=== PATIENT | female | born 1955 | race Caucasian/White ===

== ENCOUNTER 2017-03-11 17:51 | Emergency (ER) | payer OTHER ==
--- NOTE | 2017-03-11 18:36 | EDPHY ---
H & P Stated Complaint: Post op bleeding today in left knee Time Seen by Provider: 03/11/17 18:07 HPI/ROS: CHIEF COMPLAINT: Wound dehiscence History by patient HISTORY OF PRESENT ILLNESS: 62-year-old woman 2 weeks status post revision of left knee replacement complicated by new onset atrial fibrillation and significant peripheral edema who has been home from the hospital for 5 days presents complaining of wound dehiscence and bleeding from the site of the surgical wound over her left knee. Patient is on Eliquis to prevent DVT. She denies any fever. She has long-standing neuropathy and has not had much sensation in her leg and did not notice any pain in the area. She did not think it was more red than usual and there has been no drainage until it dehisced and started bleeding. She denies any purulence. She says that her lower extremity edema is improved since her discharge from the hospital. Patient notes that her blood pressure has been running low since she was in the hospital and they changed her medications around because of the atrial fibrillation. They took her off an Brayan inhibitor and hydrochlorothiazide and she has been on amiodarone and Lasix 40 mg twice a day mom states that even the hospital her blood pressure was running in the 90s on the day of discharge. She denies any chest pain, difficulty breathing she has had some nausea and vomiting but this is improved. She denies any current dizziness or lightheadedness and she has had no fainting but states she did feel slightly dizzy when she got out of the car on the way into the ED. REVIEW OF SYSTEMS: As in HPI, and all other systems reviewed and are negative - Personal History Current Tetanus Diphtheria and Acellular Pertussis (TDAP): Yes Tetanus Vaccine Date: 2014 - Medical/Surgical History Hx Asthma: No Hx Chronic Respiratory Disease: No Hx Diabetes: No Hx Cardiac Disease: No Hx Renal Disease: No Hx Cirrhosis: No Hx Alcoholism: No Hx HIV/AIDS: No Hx Splenectomy or Spleen Trauma: No Other PMH: renal hypertension, 7 spinal surgeries,2 knee replacements. Atrial Fib - Social History Smoking Status: Never smoked - Physical Exam Exam: General Appearance: Alert, obese, pale. Eyes: Pupils equal and round no pallor or injection. ENT, Mouth: Mucous membranes moist. Respiratory: Normal, effort, There are no retractions, lungs are clear to auscultation. Cardiovascular: Regular rate and rhythm. S1, S2, no murmurs, gallops, rubs appreciated Gastrointestinal: Abdomen is soft and nontender, no masses, bowel sounds normal. Neurological: Awake, alert and oriented x 3, no pronator drift, normal gait, no pronator drift Extremities: Bilateral for + pitting edema greater on the left than the right. Left leg warmer than right with mild erythema. Healing surgical wound in the midline over the left knee with Steri-Strips in place. Two and 0.5 cm open wound on the left lateral anterior knee with bruising and no purulence. Bilateral feet are warm. Skin: No rashes or lesions except as noted above. Constitutional: Initial Vital Signs Temperature (C) 36.3 C 03/11/17 18:00 Heart Rate 90 03/11/17 18:00 Respiratory Rate 16 03/11/17 18:00 Blood Pressure 92/70 L 03/11/17 18:00 O2 Sat (%) 93 03/11/17 18:00 O2 Delivery Mode Room Air Allergies/Adverse Reactions: No Known Allergies Allergy (Verified 03/11/17 18:17) Home Medications: Medication Instructions Recorded Amiodarone HCl 03/11/17 Dilaudid 03/11/17 Eliquis 03/11/17 Lasix 03/11/17 Metolazone 03/11/17 Multi-Vitamin Daily 03/11/17 Valium 03/11/17 Zofran 03/11/17 Medical Decision Making - Diagnostics EKG Interpretation: Normal sinus rhythm at a rate of 70, nonspecific ST flattening throughout and borderline prolonged QT, no old EKG available for comparison. Imaging Results: Imaging Impressions Knee X-Ray 03/11/17 18:29 Impression: Postsurgical changes of left total knee arthroplasty with good alignment and appearance. Soft tissue swelling anterior to the patella and patellar tendon with mild joint effusion. Knee replacement hardware but otherwise nothing acute Imaging: I viewed and interpreted images myself ED Course/Re-evaluation: 62-year-old woman with a recent left knee revision presents with wound dehiscence on the left medial knee surgical wound. Patient is afebrile and her white blood cell count is within normal limits and there is no purulent drainage. Lactic acid was within normal limits. Patient's blood pressure was noted to be low but on review of her hospital records through [facility] the patient 's blood pressure was running to similar levels on her day of discharge from the hospital last week. I was still concerned about infection as a cause of the wound dehiscence and I discussed the case with NICCI Rios building construction engineer for the patient's orthopedist doctor Ihsan. She discussed the case with Dr. Lopez and he requested transfer the patient to [facility] for wound washout. I discussed this with the patient and she requested transfer by private vehicle. Her son will take her to [facility]. Patient's labs were notable for low potassium which was repleted orally and elevated creatinine. These are both slightly worse than they were on discharge from the hospital 5 days ago. We were unable to obtain IV access on the patient while in the ED however she remained hemodynamically stable and with no indication for acute central venous access. I did discuss with Blanca the patient would need PICC line or other IV access on arrival. - Data Points Laboratory Results: Laboratory Results 03/11/17 20:06 03/11/17 20:06 03/11/17 03/11/17 03/11/17 20:07 20:06 20:06 WBC 6.50 10^3/uL 10^3/uL (3.80-9.50) RBC 3.45 10^6/uL L 10^6/uL (4.18-5.33) Hgb 11.9 g/dL L g/dL (12.6-16.3) Hct 34.2 % L % (38.0-47.0) MCV 99.1 fL fL (81.5-99.8) MCH 34.5 pg H pg (27.9-34.1) MCHC 34.8 g/dL g/dL (32.4-36.7) RDW 12.8 % % (11.5-15.2) Plt Count 329 10^3/uL 10^3/uL (150-400) MPV 11.2 fL fL (8.7-11.7) Neut % (Auto) 61.5 % % (39.3-74.2) Lymph % (Auto) 19.4 % % (15.0-45.0) Norman % (Auto) 14.3 % H % (4.5-13.0) Eos % (Auto) 4.0 % % (0.6-7.6) Baso % (Auto) 0.6 % % (0.3-1.7) Nucleat RBC Rel Count 0.0 % % (0.0-0.2) Absolute Neuts (auto) 4.00 10^3/uL 10^3/uL (1.70-6.50) Absolute Lymphs (auto) 1.26 10^3/uL 10^3/uL (1.00-3.00) Absolute Monos (auto) 0.93 10^3/uL H 10^3/uL (0.30-0.80) Absolute Eos (auto) 0.26 10^3/uL 10^3/uL (0.03-0.40) Absolute Basos (auto) 0.04 10^3/uL 10^3/uL (0.02-0.10) Absolute Nucleated RBC 0.00 10^3/uL 10^3/uL (0-0.01) Immature Gran % 0.2 % % (0.0-1.1) Immature Gran # 0.01 10^3/uL 10^3/uL (0.00-0.10) PT 23.1 SEC H SEC (12.0-15.0) INR 2.07 H (0.83-1.16) APTT 41.9 SEC H SEC (23.0-38.0) VBG Lactic Acid Sodium 134 mEq/L mEq/L (134-144) Potassium 2.7 mEq/L L* mEq/L (3.5-5.2) Chloride 86 mEq/L L mEq/L (97-110) Carbon Dioxide 31 mEq/l mEq/l (22-31) Anion Gap 17 mEq/L H mEq/L (8-16) BUN 27 mg/dL H mg/dL (7-23) Creatinine 2.0 mg/dL H mg/dL (0.6-1.0) Estimated GFR 25 Glucose 94 mg/dL mg/dL (70-100) Calcium 7.9 mg/dL L mg/dL (8.5-10.4) 03/11/17 03/11/17 03/11/17 20:06 19:05 19:05 WBC REJ RBC TNP Hgb TNP Hct TNP MCV TNP MCH TNP MCHC TNP RDW TNP Plt Count TNP MPV TNP Neut % (Auto) TNP Lymph % (Auto) TNP Norman % (Auto) TNP Eos % (Auto) TNP Baso % (Auto) TNP Nucleat RBC Rel Count TNP Absolute Neuts (auto) TNP Absolute Lymphs (auto) TNP Absolute Monos (auto) TNP Absolute Eos (auto) TNP Absolute Basos (auto) TNP Absolute Nucleated RBC TNP Immature Gran % TNP Immature Gran # TNP PT INR APTT VBG Lactic Acid 2.1 mmol/L mmol/L (0.7-2.1) Sodium REJ Potassium TNP Chloride TNP Carbon Dioxide TNP Anion Gap TNP BUN TNP Creatinine TNP Estimated GFR TNP Glucose TNP Calcium TNP 03/11/17 19:05 WBC RBC Hgb Hct MCV MCH MCHC RDW Plt Count MPV Neut % (Auto) Lymph % (Auto) Norman % (Auto) Eos % (Auto) Baso % (Auto) Nucleat RBC Rel Count Absolute Neuts (auto) Absolute Lymphs (auto) Absolute Monos (auto) Absolute Eos (auto) Absolute Basos (auto) Absolute Nucleated RBC Immature Gran % Immature Gran # PT INR APTT VBG Lactic Acid REJ Sodium Potassium Chloride Carbon Dioxide Anion Gap BUN Creatinine Estimated GFR Glucose Calcium Medications Given: Discontinued Medications Potassium Chloride (Klor-Con) 40 meq PO ONCE ONE Stop: 03/11/17 20:42 Last Admin: 03/11/17 20:45 Dose: 40 meq Departure - Departure Disposition: Acute Care Hospital Not [facility] Clinical Impression: Hypokalemia, Elevated serum creatinine, Peripheral edema Wound dehiscence, surgical Qualifiers: Encounter type: initial encounter Qualified Code(s): T81.31XA - Disruption of external operation (surgical) wound, not elsewhere classified, initial encounter Additional Instructions: You were seen by Dr. Nely Lancaster today. Go directly to [facility] where they are expecting you to be admitted to Dr. Champagne. Referrals: Flavia Watson MD [Primary Care Provider] - As per Instructions
--- NOTE | 2017-03-11 19:07 | CPEKG ---
Heart Rate: 70 RR Interval: 857 P-R Interval: 152 QRSD Interval: 92 QT Interval: 460 QTC Interval: 497 P [place]: 22 QRS [place]: 12 T Wave [place]: 136 EKG Severity - ABNORMAL ECG - EKG Impression: SINUS RHYTHM EKG Impression: NONSPECIFIC T ABNORMALITIES, ANT-LAT LEADS EKG Impression: BORDERLINE PROLONGED QT INTERVAL Electronically Signed By: Nely Lancaster 11-Mar-2017 19:26:26
[2017-03-11 20:09] LABS: % IMMATURE GRANULYOCYTES 0.2 % (0.0-1.1); ABSOLUTE IMMATURE GRANULOCYTES 0.01 10^3/uL (0.00-0.10); ADD DIFF? NO; ADD MORPH? NO; ADD SCAN? NO; ATYPICAL LYMPHOCYTE FLAG 0 (0-99); FRAGMENT RBC FLAG 0 (0-99); HEMATOCRIT 34.2 % (38.0-47.0); HEMOGLOBIN 11.9 g/dL (12.6-16.3); LEFT SHIFT FLG 0 (0-99); LIPEMIA HEMOLYSIS FLAG 90 (0-99); MEAN CELL HEMOGLOBIN 34.5 pg (27.9-34.1); MEAN CELL HEMOGLOBIN CONCENTR. 34.8 g/dL (32.4-36.7); MEAN CELL VOLUME 99.1 fL (81.5-99.8); MEAN PLATELET VOLUME 11.2 fL (8.7-11.7); PLATELET CLUMPS FLAG 10 (0-99); PLATELET COUNT 329 10^3/uL (150-400); RED BLOOD CELL COUNT 3.45 10^6/uL (4.18-5.33); RED CELL DISTRIBUTION WIDTH 12.8 % (11.5-15.2)
[2017-03-11 20:22] LABS: INR 2.07 (0.83-1.16); PROTIME(PATIENT) 23.1 SEC (12.0-15.0)
[2017-03-11 20:23] LABS: APTT 41.9 SEC (23.0-38.0)
[2017-03-11 20:33] LABS: CALCIUM 7.9 mg/dL (8.5-10.4)
[2017-03-11 20:40] LABS: POTASSIUM 2.7 mEq/L (3.5-5.2)
[2017-03-11] MEDS ORDERED: POTASSIUM CL 20 MEQ TAB PO ONE (20:41)
[2017-03-11 22:01] VITALS: BP 110/60; PULSE 70; RESP 22; TEMP 98.1; O2SAT 94
== END 2017-03-11 22:25 | disposition short-term general hospital (02) ==
LOC: CED 17:51
DX: T81.31XA Disruption of external operation (surgical) wound, not elsewhere classified, initial encounter (principal); E87.6 Hypokalemia; R94.4 Abnormal results of kidney function studies; Z79.01 Long term (current) use of anticoagulants; Y82.8 Other medical devices associated with adverse incidents
CPT/HCPCS: 73562-PO; 80048-PO; 83605-PO; 85025-PO; 85610-PO; 85730-PO

== ENCOUNTER 2017-04-21 10:45 | Inpatient (IN) | payer OTHER ==
[2017-04-21] MEDS ORDERED: ONDANSETRON DISINTEGRATING 4 MG TAB PO PRN (16:33)
--- NOTE | 2017-04-21 16:33 | PDGENHP ---
History and Physical History and Physical: Post admission physician evaluation and rehabilitation treatment plan Date Admit: 04/21/2017 Date and Time Eval: 04/21/2017 4 p.m. Referring Facility: [facility] Referring MD: Dr. Champagne Rehab Dx: 8.9 other orthopedic Impairment Group/ Etiologic Dx: status post total knee arthroplasty infection, washout, medically complicated. She also had clearing encephalopathy Date Onset: 02/14/2017 Date Surgery: 02/14/2017, repeat washout on 03/12/2017 and 03/17/2017 Note: There is no discharge summary available at the time of admission, information contained below is gleaned from available records from [facility] and from the patient. I also discussed the case personally with the hospitalist from [facility] HPI: this is a 62-year-old woman with past medical history of obesity and bilateral knee replacements who is now status post infection and washout from a knee revision surgery that took place on 02/14/2017 (Dr. Champagne). The patient presented for this episode with heterotopic ossification and was taken to the operating room for revision. She experienced wound dehiscence and was taken back to the OR on 03/12/2017 (Dr. Champagne) and also had a gastroc flap on 2016 (Dr. Shaw). Her hospital course was complicated by many factors. The patient was seen by Neurology, Dr. Babcock, note from 04/14/2017 was reviewed, and they noted that the patient has had an EEG, no evidence of seizures, workup for dementia was essentially normal including normal B12 level and TSH common an LP was performed with normal white blood cell count, normal glucose but high-protein. Her course was also complicated by lesions on her tongue, started on acyclovir, at the time of that note HSV PCR was pending. She had a negative HIV. It was thought that she may have had aseptic meningitis with very high protein in her CSF. She also had a negative NMDA, paraneoplastic panel, and RPR. Acyclovir was eventually stopped because of negative PCR. Other etiologies could be malnutrition, prior alcohol use and underlying dementia. Treating with Seroquel at night. Also, from notes by Dr. Herrera, 04/17/2017, she is noted to have the following issues: She had severe protein calorie malnutrition requiring tube feeding but now is eating. She is continuing daily multivitamin and thiamine.She had liquid stools with negative C diff studies. Stools improved after antibiotics and tube feeding stopped. She is continuing cholestyramine and p.r.n. Lomotil. She also had anemia with a currently stable hemoglobin after some transfusions. She experienced pneumoperitoneum of an unclear etiology , was followed serially with abdominal CT scans and has been tolerating a diet. She is receiving 2 weeks of antibiotic therapy as a precaution. They are recommending GI follow-up as an outpatient. She had a urinary tract infection/positive urinary culture from 03/23/2017 growing VRE, there are not treating as she had a Diaz and was asymptomatic. She also had respiratory alkalosis and metabolic acidosis, resolved and stopped bicarb. Acute kidney injury resolved with a peak of 2.0 creatinine, now at baseline of 0.7. Fluids improve her status and held Lasix. She also had paroxysmal AFib and a flutter, Abundio score was 2, echo was normal on 02/18/2017. She was discharged on amiodarone and apixaban previously, normal sinus rhythm the past admission. They resumed apixaban on . Amiodarone was stopped. They need cardiology follow-up as an outpatient. Hyponatremia improved after stopping IV fluids, she had a prolonged QTc , thought due to hypokalemia on admission, but recommended checking ECG of medications prolonged QT. Regarding her hypertension her blood pressures been normal off of her usual medications. I discussed the case with the hospitalist, Dr. Gray, who felt that the encephalopathy was likely related to the amiodarone and consisted of confabulation and hallucinations. He also noted that she has been diuresing considerably, and the fluid was thought related to on cardiac pressure. She had an albumin of 2.1 on 04/10/2017. She is now on 40 mg of Lasix orally daily , and he recommended monitoring as she can easily developed acute kidney injury. He also felt the anemia has been stable, and they have been monitoring the pneumoperitoneum clinically. Additionally, the patient was not symptomatic with paroxysmal atrial fibrillation and atrial flutter, this occurred perioperatively and he felt that in Cardiology follow-up she will likely get a Holter monitor and will hopefully be able to stop the apixaban. On meeting the patient today, she endorsed some ongoing numbness and tingling in her left lower leg below the knee that has been present for many months to years. She also endorses right leg swelling that started within 24 hours or so after her repeat surgery. She denies that she has had any imaging for evaluation of blood clot. She is looking forward to participating in rehabilitation and looks forward to discharging home with family. 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 Presently she needs assistance with ADLs including dressing, bathing, grooming, as well as set up for feeding. She requires 2 person assistance for bed mobility, sliding board transfer for 2 person assist, she has poor balance and endurance and she is currently not ambulating. She is self propelling a wheelchair, no cognitive impairments. She is weight-bearing as tolerated on the left lower limb. She is considered a fall risk. ROS: All other systems are negative except for as described above, she denied any shortness of breath or chest pain. 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 Recent prolonged QTC, hypertension PMH/PSH: Atrial fibrillation/ atrial flutter Hypertension Hyperlipidemia Obesity Nonfunctional right kidney due to vesicoureteral reflux Acute kidney injury in the past from acute tubular necrosis section Bilateral total knee arthroplasty with left knee total arthroplasty poly exchange with heterotopic ossification, status post wound infection and washout Laminectomy foraminotomy L1 through S1 . She endorses that she has had greater than 10 surgeries Tonsillectomy Bilateral ureteral reimplantation Family Hx: Multiple members of the family with bipolar and depression, no neurological history. Social Hx: occasional wine, no tobacco, no illicit drug use, works as a nurse in employee health at [employer]. Patient was living at home with her family, single-level, 1 stair to enter, bathroom on the main level with grab bars around the toilet. she has a history of heavy alcohol use in approximately 11 years ago went through a multi step program, and was completely dry for approximately 5 years and then now drinks occasional alcohol at home. She states that during that time she was abusing alcohol she was using for pain relief. Allergies: amiodarone was a possible contributor to her mental status changes, she is to avoid NSAIDs because of her kidney function Pre-Hosp Meds: Home medications per note by Dr. Carcamo 03/11/2017 Multivitamin daily Spironolactone 25 mg p. o. daily Amiodarone 200 mg p.o. daily Lasix 40 mg p.o. twice daily Metolazone 2.5 mg p. o. daily p.r.n. for weight gain more than 2-3 lb Apixaban 5 mg p. o. twice daily Ondansetron 4 mg p.o. q.4 hours p.r.n. for nausea Admit Meds: Apixaban 5 mg p. o. twice daily multivitamins daily ondansetron 4 mg p.o. q.4 hours p.r.n. oxycodone 5-10 mg p.o. q.4 hours p.r.n. for pain pantoprazole sodium 20 mg p.o. twice daily quetiapine 25 mg p.o. at bedtime thiamin 100 mg daily Physical Exam: PHYSICAL EXAM: VS: Vital signs taken prior to admission were temperature of 36.6, blood pressure 115/81, pulse of 78, respirations 18, saturating 96% on room air GEN: Normally developed, resting in bed, NAD EYES: Anicteric, PERRL EARS, NOSE, MOUTH, THROAT: MMM, normal dentition, no ulcers CV: Heart RRR, extensive right lower extremity edema, not present on the left , extremities warm. RESP: Breathing comfortably, lungs CTAB no wrr GI: Abd with +BS, distended, obese : No daiz in place MSK: no contracture noted SKIN: no rashes or skin breakdown noted. PSYCH: appropriate, pleasant, cooperative; normal mood, affect and thought content HEME/LYMPH: No supraclavicular lymphadenopathy NEURO: Mental status: The patient is alert; oriented to self, hospital, city, date, month, year, and day; Serial sevens were completed, but she needed cuing to remember where she was. Cranial Nerves II-XII were intact and symmetric bilaterally, including no diplopia. Strength was 4/5 and symmetric in the bilateral upper limbs diffusely lower limbs could not be checked because she was on a bedpan at that time.. absent Wilkes's. No spasticity. Sensation was decreased on the left foot compared to the right, but was symmetric in the upper limbs. She notes that this is longstanding. She had normal rapid alternating movements Results Review: ECG from 03/13/2017 showed normal sinus rhythm with nonspecific ST and T-wave abnormalities, noted to be an abnormal ECG with no previous ECGs available. The report was by Dr. Albrecht. Lab results from today accessed on [facility] demonstrate WBC count of 4.72, red blood cell count of 2.23 with hemoglobin of 7.4 and hematocrit of 22.5, normal MCV. Interestingly, hemoglobin from yesterday was 9.2, but prior days on 04/18 was 7.3 and 04/15 was 7.2. It appears that the spurious value of 9.2 was anomaly. No mention of transfusion or other intervention in the note to account for that value. BMP showed a mildly low sodium at 1:35 a.m., normal potassium, chloride, bicarb, slightly low anion gap at 6, creatinine of 0.8. MRI of the brain from 2016 demonstrated senescent changes roughly consistent with the patients age, mild chronic small vessel ischemic changes, and no acute intracranial abnormality and nothing to specifically suggest Wernickes encephalitis. CT of the abdomen 03/30/2017 showed extensive pneumoperitoneum, similar to prior study. Some wall thickening of the hepatic flexure and transverse colon. More focal areas of air appear to be tracking in the region of the slightly inflamed colon but there is still no free fluid or inflammation identified. No bowel dilation. No diverticular disease. Etiology is still not definitely delineated. Assessment and Plan: This is a 62-year-old morbidly obese woman with a past medical history of bilateral knee arthroplasty who has had a very complicated course status post a revision of her left total knee arthroplasty on 03/12/2017 with a prolonged hospital course and severe impairments in mobility and self-care. Her course has also been complicated by severe encephalopathy of unclear etiology with unclear cognitive deficits. She had deficits on a brief cognitive exam today and will get a screening by speech therapy. Overall, she has a good rehab prognosis due to her motivation and availability of resources after discharge. Her course will be complicated because she has multiple overlapping medical problems and morbid obesity which will be a challenge. Additionally, one of her biggest deficit is in endurance and strength which will take time to recover. Individual items addressed below: * Impairments in mobility and self-care status post complicated total knee arthroplasty revision: Physical therapy and occupational therapy for impairments in mobility and self-care, additionally we will screen with speech language pathology for any cognitive deficits status post her encephalopathy. * Status post total knee arthroplasty with revision, gastrocnemius flap comma last surgery on 03/17/2017: Doing well at this point s/p revisions and crafts. Continue wound dressing changes and pain management, increase mobilization.Cultures did not grow any isolate. Follow up with Orthopedic surgery. Oxycodone p.r.n. * Lower extremity swelling: Unclear etiology, has been given Lasix dose 20 mg IV on day of discharge, planning to continue Lasix 40 mg daily on discharge with following up of BMP. Discharging physician feels that may be most consistent with bronchitis pressure and we will check albumin and pre-albumin and monitor her nutrition status. Additionally, she appears to have more swelling in the right lower extremity than the left, raising the suspicion for a deep vein thrombosis. I will check a D-dimer, and consider following up with a lower extremity ultrasound. * Pneumoperitoneum: Status post 14 days of ceftriaxone in acute care hospital, following up with Gastroenterology as an outpatient. They have been monitoring status post a unchanged repeat abdominal CT on 03/30/2017. plan to monitor clinically * Anemia : Appears to be stable with 1 spurious value recently, continue to monitor. hemoglobin on admission was 7.4, obtained at outside hospital * Paroxysmal atrial fibrillation/ atrial flutter : On anticoagulation, apixaban , amiodarone has been stopped. Following up with Cardiology as an outpatient. apparently, her previous episodes of atrial fibrillation and atrial flutter were in the context of prior surgery, and she was asymptomatic. * Resolving encephalopathy : Resolved after 3 weeks of severe delirium, etiology unclear but may have been aseptic meningitis or encephalitis with very high protein in the CSF. May have also been a med effect from amiodarone or cephalosporin. Monitor. Continue evening quetiapine, 25 mg p.o. at bedtime, continue thiamin 100 mg p.o. daily. * Severe protein calorie malnutrition : Dietary consult , obtaining protein and albumin, and pre-albumin * History of loose stools: P.r.n. Lomotil can be used if needed, not ordered at this time * History of prolonged QTC: Caution with new medications, obtain ECG if needed * History of oral ulcers: Chlorhexidine rinse at her request * Code Status: full code, discussed with patient on admission * Proph: currently on apixaban for paroxysmal atrial fibrillation and atrial flutter. Checking D-dimer and possibly ultrasound for lower extremity swelling. prophylactic bowel medications p.r.n.. * ELOS/ Dispo: estimate 14 day length of stay with goal to discharge home with family, outpatient therapy. * Follow-up and continuity of care: The patient will need follow up with her primary care physician, Orthopedic surgery, cardiology, gastroenterology. At the time of admission, the discharge summary was not available and additional follow-up and studies may be recommended based on the discharge summary. The patient will likely require 60-90 minutes per day of physical therapy and occupational therapy 5-7 days per week. Estimated level of improvement would be modified independence with mobility, self-care, as well as most IADLs requiring higher cognitive activity. The patient is medically stable for participation in inpatient rehabilitation. I have reviewed the Preadmission Screen, and after review of the additional materials in talking with the patient, it is clear that she has multiple comorbidities that were not accounted for, including encephalopathy that is very recently resolving, profound anemia, paroxysmal atrial fibrillation / atrial flutter, severe protein calorie malnutrition. I believe that she is still medically stable and able to participate in inpatient rehabilitation, but her complexity is greater than expected. Additionally, I am concerned about swelling in the right lower leg that may be related to a possible DVT. She also may demonstrate cognitive impairments that we are unaware of on prescreening evaluation. A total of 85 minutes was spent on the floor in the care of the patient, the majority of which was spent on counseling and coordination of care regarding discussions with other providers outside of this hospital, coordination of admission.
[2017-04-21] MEDS ORDERED: MAGNESIUM HYDROXIDE 30 ML UDCUP PO PRN (16:46)
[2017-04-21] MEDS ORDERED: BISACODYL 10 MG SUPP PR PRN (16:46)
[2017-04-21] MEDS ORDERED: BENEFIBER/NUTRISOURCE FIBER PKT 1 EACH PO PRN (16:46)
--- NOTE | 2017-04-21 16:52 | PDOREHIP ---
Admission [facility] - Admission - 3 Day Assessment Period Admission Date/Day 1: 04/21/17 Day 2: 04/22/17 Day 3: 04/23/17 - Active Diagnoses Comorbidities and Co-existing Conditions at Admission: [id number]. None of the Above - Skin Conditions Unhealed Pressure Ulcer (1 or more/Stage 1 or >)-Admission: 0. No
[2017-04-21] MEDS: QUEtiapine FUMARATE 25 MG TAB PO SCH (21:52)
[2017-04-21] MEDS: APIXABAN 5 MG TAB PO SCH (21:52)
[2017-04-21] MEDS: CHLORHEXIDINE GLUCONATE 15 ML UDL PO SCH (21:52)
[2017-04-21] MEDS: PANTOPRAZOLE SODIUM 40 MG TAB PO SCH (21:52)
[2017-04-22] MEDS: ACETAMINOPHEN 325 MG TAB PO PRN ×3 (00:05→14:32)
[2017-04-22] MEDS: oxyCODONE IR 5 MG TAB PO PRN ×3 (00:06→14:32)
[2017-04-22] MEDS: APIXABAN 5 MG TAB PO SCH ×2 (09:14→21:58)
[2017-04-22] MEDS: THIAMINE HCL 100 MG TAB PO SCH (09:14)
[2017-04-22] MEDS: PANTOPRAZOLE SODIUM 40 MG TAB PO SCH ×2 (09:14→21:58)
[2017-04-22] MEDS: CHLORHEXIDINE GLUCONATE 15 ML UDL PO SCH ×2 (09:14→21:57)
[2017-04-22] MEDS: MULTIVITAMINS 1 EACH TAB PO SCH (09:14)
--- NOTE | 2017-04-22 09:27 | SOAPPROG ---
[facility]I Progress Note Assessment/Plan: Assessment: This is a 62-year-old morbidly obese woman with a past medical history of bilateral knee arthroplasty who has had a very complicated course status post a revision of her left total knee arthroplasty on 03/12/2017 with a prolonged hospital course and severe impairments in mobility and self-care. Her course has also been complicated by severe encephalopathy of unclear etiology with unclear cognitive deficits. Today's update: Discussed with Physical therapy the need for a low intensity modified program at the outset because of impaired endurance. Still trying to get a D-dimer this morning, if we are unable to then we will skip to lower extremity ultrasound. Other labs including the CBC, BMP, albumin, prealbumin, and total protein can wait until subsequent days. Vascular access may be an issue, consider placing a PICC again if labs are unobtainable. * Impairments in mobility and self-care status post complicated total knee arthroplasty revision: Physical therapy and occupational therapy, additionally we will screen with speech language pathology for any cognitive deficits status post her encephalopathy. * Status post total knee arthroplasty with revision, gastrocnemius flap comma last surgery on 03/17/2017: Doing well at this point s/p revisions and crafts. Continue wound dressing changes and pain management, increase mobilization. Cultures did not grow any isolate. Follow up with Orthopedic surgery. Oxycodone p.r.n. * Lower extremity swelling: Unclear etiology, planning to continue Lasix 40 mg daily on discharge with following up of BMP. Discharging physician feels that may be most consistent with oncotic pressure and we will check albumin and pre-albumin and monitor her nutrition status. Additionally, she appears to have more swelling in the right lower extremity than the left, raising the suspicion for a deep vein thrombosis. D-dimer will be drawn this morning, difficulty with labs however and so we will consider going straight to ultrasound. * Anemia : Appears to be stable with 1 spurious value recently, continue to monitor. hemoglobin on admission was 7.4, obtained at outside hospital * Resolving encephalopathy : Resolved after 3 weeks of severe delirium, etiology unclear but may have been aseptic meningitis or encephalitis with very high protein in the CSF. May have also been a med effect from amiodarone or cephalosporin. Monitor. Continue evening quetiapine, 25 mg p.o. at bedtime, continue thiamin 100 mg p.o. daily. * Severe protein calorie malnutrition : Dietary consult , obtaining protein and albumin, and pre-albumin * Code Status: full code, discussed with patient on admission * ELOS/ Dispo: estimate 14 day length of stay with goal to discharge home with family, outpatient therapy. * Follow-up and continuity of care: The patient will need follow up with her primary care physician (Flavia Ford), Orthopedic surgery, cardiology, gastroenterology. At the time of admission, the discharge summary was not available and additional follow-up and studies may be recommended based on the discharge summary. Stable/ resolved: * Pneumoperitoneum: Status post 14 days of ceftriaxone in [facility], following up with Gastroenterology as an outpatient. They have been monitoring status post a unchanged repeat abdominal CT on 03/30/2017. plan to monitor clinically * Paroxysmal atrial fibrillation/ atrial flutter : On anticoagulation, apixaban , amiodarone has been stopped. Following up with Cardiology as an outpatient. apparently, her previous episodes of atrial fibrillation and atrial flutter were in the context of prior surgery, and she was asymptomatic. * History of loose stools: P.r.n. Lomotil can be used if needed, not ordered at this time * History of prolonged QTC: Caution with new medications, obtain ECG if needed * History of oral ulcers: Chlorhexidine rinse at her request * Proph: currently on apixaban for paroxysmal atrial fibrillation and atrial flutter. prophylactic bowel medications p.r.n.. 04/22/17 09:20 Subjective: chief complaint: Lower extremity swelling No acute events overnight. Labs have been difficult to obtain this morning. Patient continues to have lower extremity swelling of the right leg greater than the left, relatively absent in the arms. She noted that her primary care physician is Flavia [facility] at [facility]. Denies any shortness of breath or chest pain, no new numbness, tingling, or weakness. Objective: Vital Signs Temp Pulse Resp BP Pulse Ox 36.7 C 105 H 16 124/88 H 90 L 04/22/17 06:41 04/22/17 06:41 04/22/17 06:41 04/22/17 06:41 04/22/17 06:41 04/21/17 04/22/17 04/23/17 05:59 05:59 05:59 Intake Total 580 Balance 580 Physical Exam - Physical Exam General Appearance: WD/WN, alert, no apparent distress Respiratory: No respiratory distress, No accessory muscle use Cardiac/Chest: normal peripheral pulses, regular rate, rhythm Skin: normal color, warm/dry, No cyanosis Extremities: non-tender, swelling ( Considerable swelling in the right leg, 3+ , minimal in the left, though the left leg is also wrapped), No calf tenderness , No Sandy's sign Neuro/Psych: alert, normal mood/affect, oriented x 3, motor weakness ( strength is approximately 3 in the hip flexors on the right as well as in the knee extensors on the right, less than 3 on the left) ICD10 Worksheet Patient Problems: Problems Problem Status Onset Morbid obesity Acute S/P total knee arthroplasty Acute Swelling of lower extremity Acute - ICD10 Problem Qualifiers (1) S/P total knee arthroplasty Qualifiers: Laterality: bilateral Qualified Code(s): Z96.653 - Presence of artificial knee joint, bilateral (2) Swelling of lower extremity (3) Morbid obesity
[2017-04-22] MEDS: FUROSEMIDE 40 MG TAB PO SCH (10:52)
[2017-04-22 17:09] LABS: HEMATOCRIT 26.8 % (38.0-47.0); HEMOGLOBIN 8.7 g/dL (12.6-16.3); MEAN CELL HEMOGLOBIN 32.7 pg (27.9-34.1); MEAN CELL HEMOGLOBIN CONCENTR. 32.5 g/dL (32.4-36.7); MEAN CELL VOLUME 100.8 fL (81.5-99.8); RED BLOOD CELL COUNT 2.66 10^6/uL (4.18-5.33)
[2017-04-22 17:34] LABS: ALBUMIN 2.3 g/dL (3.5-5.0); ANION GAP 8 mEq/L (8-16); CALCIUM 8.2 mg/dL (8.5-10.4); CARBON DIOXIDE 28 mEq/l (22-31); CHLORIDE 101 mEq/L (97-110); GLOMERULAR FILTRATION RATE 56; GLUCOSE 81 mg/dL (70-100); POTASSIUM 3.4 mEq/L (3.5-5.2); SODIUM 137 mEq/L (134-144); TOTAL PROTEIN 5.1 g/dL (6.3-8.2)
[2017-04-22 17:41] LABS: PREALBUMIN 13.3 mg/dL (17.6-36.0)
[2017-04-22] MEDS: POTASSIUM CL 20 MEQ TAB PO SCH (18:56)
[2017-04-22] MEDS: QUEtiapine FUMARATE 25 MG TAB PO SCH (21:58)
[2017-04-23] MEDS: ACETAMINOPHEN 325 MG TAB PO PRN ×2 (01:43→16:08)
[2017-04-23] MEDS: oxyCODONE IR 5 MG TAB PO PRN ×3 (04:18→21:49)
[2017-04-23] MEDS: PANTOPRAZOLE SODIUM 40 MG TAB PO SCH ×2 (08:02→21:49)
[2017-04-23] MEDS: APIXABAN 5 MG TAB PO SCH ×2 (08:02→21:50)
[2017-04-23] MEDS: POTASSIUM CL 20 MEQ TAB PO SCH (08:02)
[2017-04-23] MEDS: THIAMINE HCL 100 MG TAB PO SCH (08:04)
[2017-04-23] MEDS: FUROSEMIDE 40 MG TAB PO SCH (08:04)
[2017-04-23] MEDS: MULTIVITAMINS 1 EACH TAB PO SCH (08:04)
[2017-04-23] MEDS: CHLORHEXIDINE GLUCONATE 15 ML UDL PO SCH ×2 (08:05→21:49)
--- NOTE | 2017-04-23 10:26 | SOAPPROG ---
TORI Progress Note Assessment/Plan: Assessment: This is a 62-year-old morbidly obese woman with a past medical history of bilateral knee arthroplasty who has had a very complicated course status post a revision of her left total knee arthroplasty on 03/12/2017 with a prolonged hospital course and severe impairments in mobility and self-care. Her course has also been complicated by severe encephalopathy of unclear etiology with unclear cognitive deficits. Today's update: No DVT identified on ultrasound, D-dimer lab was canceled. She continues to have right lower extremity swelling greater than left, all the way up to her hips. Still some suspicion of a undiagnosed DVT, proximal, however she is anticoagulated for now and will continue monitoring clinically. I will check a D-dimer again on Monday, if it is elevated I would consider further imaging such as CT venogram however I am holding off at this point because of the contrast load and her history of kidney failure. Continuing to diurese and rechecking next kidney function test on Monday, replacing potassium for a low value on admission. Also noted to have a slightly elevated postvoid residual this morning at around 250, she is working with nursing on optimizing bowel and bladder plan. * Impairments in mobility and self-care status post complicated total knee arthroplasty revision: Physical therapy and occupational therapy, additionally we will screen with speech language pathology for any cognitive deficits status post her encephalopathy. * Status post total knee arthroplasty with revision, gastrocnemius flap comma last surgery on 03/17/2017: Doing well at this point s/p revisions and crafts. Continue wound dressing changes and pain management, increase mobilization. Cultures did not grow any isolate. Follow up with Orthopedic surgery. Oxycodone p.r.n. * Lower extremity swelling: Unclear etiology, planning to continue Lasix 40 mg daily on discharge with following up of BMP. Discharging physician feels that may be most consistent with oncotic pressure and we will check albumin and pre-albumin and monitor her nutrition status. Additionally, she appears to have more swelling in the right lower extremity than the left, raising the suspicion for a deep vein thrombosis. Limited lower extremity Doppler was negative on admission, however it did not rule out a proximal thrombosis. Rechecking D-dimer on Monday as the 1st one could not be processed. If elevated , would consider CT venogram with contrast, however holding off on that for now because of her history of kidney failure. Plan to continue anticoagulation for her atrial fibrillation, but would consider further studies before stopping anticoagulation if less than 6 months. * Hypokalemia: She has a slightly low potassium on recent labs, prescribing potassium 20 mEq daily while on Lasix. Monitor next labs on Monday morning. * Anemia : Appears to be stable with 1 spurious value recently, continue to monitor. hemoglobin on admission was 7.4, obtained at outside hospital, found to be greater than 8 on follow-up lab * Resolving encephalopathy : Resolved after 3 weeks of severe delirium, etiology unclear but may have been aseptic meningitis or encephalitis with very high protein in the CSF. May have also been a med effect from amiodarone or cephalosporin. Monitor. Continue evening quetiapine, 25 mg p.o. at bedtime, continue thiamin 100 mg p.o. daily. * Severe protein calorie malnutrition : Dietary consult , protein, albumin, and prealbumin are all low on admission. * Code Status: full code, discussed with patient on admission * ELOS/ Dispo: estimate 14 day length of stay with goal to discharge home with family, outpatient therapy. * Follow-up and continuity of care: The patient will need follow up with her primary care physician (Flavia Ford), Orthopedic surgery, cardiology, gastroenterology. At the time of admission, the discharge summary was not available and additional follow-up and studies may be recommended based on the discharge summary. Stable/ resolved: * Pneumoperitoneum: Status post 14 days of ceftriaxone in acute care hospital, following up with Gastroenterology as an outpatient. They have been monitoring status post a unchanged repeat abdominal CT on 03/30/2017. plan to monitor clinically * Paroxysmal atrial fibrillation/ atrial flutter : On anticoagulation, apixaban , amiodarone has been stopped. Following up with Cardiology as an outpatient. apparently, her previous episodes of atrial fibrillation and atrial flutter were in the context of prior surgery, and she was asymptomatic. * History of loose stools: P.r.n. Lomotil can be used if needed, not ordered at this time * History of prolonged QTC: Caution with new medications, obtain ECG if needed * History of oral ulcers: Chlorhexidine rinse at her request * Proph: currently on apixaban for paroxysmal atrial fibrillation and atrial flutter. prophylactic bowel medications p.r.n.. 04/22/17 09:20 08/20/17 10:20 Subjective: Chief complaint: Lower limb swelling No acute events overnight. Patient endorses ongoing swelling of the right leg but does note that it is quite a bit less swollen than initially. She denies any shortness of breath or chest pain, no new numbness, tingling, or weakness. She slept well, is working well with therapy so far. Noted to have a slightly low potassium. Lower extremity ultrasound Doppler of the bilateral limbs was limited but showed no evidence of DVT. Objective: Vital Signs Temp Pulse Resp BP Pulse Ox 36.7 C 76 20 123/78 H 96 04/23/17 08:00 04/23/17 08:00 04/23/17 08:00 04/23/17 08:00 04/23/17 08:00 Laboratory Results 04/22/17 16:59 04/22/17 16:59 04/22/17 04/23/17 04/24/17 05:59 05:59 05:59 Intake Total 580 580 Output Total 500 Balance 580 80 Physical Exam - Physical Exam General Appearance: WD/WN, alert, no apparent distress EENT: No scleral icterus (R), No scleral icterus (L) Respiratory: lungs clear, normal breath sounds, No respiratory distress, No accessory muscle use Cardiac/Chest: normal peripheral pulses, regular rate, rhythm, No irregularly irregular Abdomen: non-tender, soft, distended, No guarding Skin: normal color, warm/dry, No cyanosis Extremities: pedal edema ( Right greater than left), swelling, other ( bilateral lower legs are slightly cool to the touch but similar, no cyanosis, good capillary refill.) Neuro/Psych: alert, normal mood/affect ICD10 Worksheet Patient Problems: Problems Problem Status Onset Morbid obesity Acute S/P total knee arthroplasty Acute Swelling of lower extremity Acute - ICD10 Problem Qualifiers (1) S/P total knee arthroplasty Qualifiers: Laterality: bilateral Qualified Code(s): Z96.653 - Presence of artificial knee joint, bilateral (2) Swelling of lower extremity (3) Morbid obesity
[2017-04-23] MEDS: POLYETHYLENE GLYCOL 3350 17 GM PKT PO PRN (16:08)
[2017-04-23] MEDS: QUEtiapine FUMARATE 25 MG TAB PO SCH (21:49)
[2017-04-24 08:00] LABS: HEMATOCRIT 25.8 % (38.0-47.0); HEMOGLOBIN 8.2 g/dL (12.6-16.3); MEAN CELL HEMOGLOBIN 32.5 pg (27.9-34.1); MEAN CELL HEMOGLOBIN CONCENTR. 31.8 g/dL (32.4-36.7); MEAN CELL VOLUME 102.4 fL (81.5-99.8); RED BLOOD CELL COUNT 2.52 10^6/uL (4.18-5.33); RED CELL DISTRIBUTION WIDTH 15.2 % (11.5-15.2)
[2017-04-24 08:16] LABS: ANION GAP 9 mEq/L (8-16); CALCIUM 7.7 mg/dL (8.5-10.4); CARBON DIOXIDE 27 mEq/l (22-31); CHLORIDE 101 mEq/L (97-110); CREATININE 0.9 mg/dL (0.6-1.0); GLOMERULAR FILTRATION RATE > 60; GLUCOSE 73 mg/dL (70-100); POTASSIUM 3.9 mEq/L (3.5-5.2); SODIUM 137 mEq/L (134-144)
[2017-04-24] MEDS: APIXABAN 5 MG TAB PO SCH ×2 (08:49→20:59)
[2017-04-24] MEDS: CHLORHEXIDINE GLUCONATE 15 ML UDL PO SCH ×2 (08:49→20:59)
[2017-04-24] MEDS: MULTIVITAMINS 1 EACH TAB PO SCH (08:50)
[2017-04-24] MEDS: FUROSEMIDE 40 MG TAB PO SCH (08:50)
[2017-04-24] MEDS: PANTOPRAZOLE SODIUM 40 MG TAB PO SCH ×2 (08:51→20:59)
[2017-04-24] MEDS: POTASSIUM CL 20 MEQ TAB PO SCH (08:51)
[2017-04-24] MEDS: oxyCODONE IR 5 MG TAB PO PRN ×4 (08:52→22:21)
[2017-04-24] MEDS: THIAMINE HCL 100 MG TAB PO SCH (08:52)
[2017-04-24] MEDS: POLYETHYLENE GLYCOL 3350 17 GM PKT PO PRN (08:53)
--- NOTE | 2017-04-24 09:46 | SOAPPROG ---
SOAP Progress Note Assessment/Plan: Assessment: 62-year-old morbidly obese woman with a past medical history of bilateral knee arthroplasty, status post revision of her left total knee arthroplasty on 2016 with a prolonged hospital course and severe impairments in mobility and self-care. Her course has also been complicated by severe encephalopathy of unclear etiology with unclear cognitive deficits. * Impairments in mobility and self-care status post complicated total knee arthroplasty revision: Initial functional independence measure 56. She transferred with sliding board, moderate assist of 2 to get her legs back into bed. She stood for 20 seconds with maximal assist of 2. Lower body dressing requires moderate to maximal assist, upper body is done with supervision. Bed mobile ability requires minimal to moderate assist Continue physical therapy and occupational therapy. * Status post total knee arthroplasty with revision, gastrocnemius flap, last surgery on 03/17/2017: Continue wound dressing changes MWF and pain management , increase mobilization. Cultures did not grow any isolate. Follow up with Orthopedic surgery. Oxycodone p.r.n. * Lower extremity swelling: D-dimer slightly positive. On Lasix 40 mg daily on discharge and renal function tolerating. There may be a component of anasarca with low albumin. Change diuretic to bumetanide from furosemide for less protein binding and better drug delivery to kidney. Limited lower extremity Doppler was negative on admission, however it did not rule out a proximal thrombosis. Consider CT venogram with contrast, however holding off on that for now because of her history of kidney failure. Plan to continue anticoagulation for her atrial fibrillation, but would consider further studies before stopping anticoagulation if less than 6 months. * Hypokalemia: Repleted on labs 04/24/2017. * Anemia : Worse today, 04/24/2017. MCV is high. Check stool hemoccults, vitamin B12. Reticulocyte count is appropriately elevated. Iron panel with low TIBC and normal iron is more consistent with anemia of chronic disease than of iron deficiency anemia. * Resolving encephalopathy : Resolved after 3 weeks of severe delirium, etiology unclear but may have been aseptic meningitis or encephalitis with very high protein in the CSF. May have also been a med effect from amiodarone or cephalosporin. Monitor. Continue evening quetiapine, 25 mg p.o. at bedtime, continue thiamin 100 mg p.o. daily. * Severe protein calorie malnutrition : Dietary consult , protein, albumin, and prealbumin are all low on admission. Stable/ resolved: * Pneumoperitoneum: Status post 14 days of ceftriaxone in acute care hospital, following up with Gastroenterology as an outpatient. They have been monitoring status post a unchanged repeat abdominal CT on 03/30/2017. plan to monitor clinically * Paroxysmal atrial fibrillation/ atrial flutter : On anticoagulation, apixaban , amiodarone has been stopped. Notes from hospital report ejection fraction of 65%. Following up with Cardiology as an outpatient. Apparently, her previous episodes of atrial fibrillation and atrial flutter were in the context of prior surgery, and she was asymptomatic. * History of loose stools: P.r.n. Lomotil can be used if needed, not ordered at this time * History of prolonged QTC: Caution with new medications, obtain ECG if needed * History of oral ulcers: Chlorhexidine rinse at her request * Encephalopathy. Resolved with normal screening per speech therapy. * Code Status: full code, discussed with patient on admission * Proph: currently on apixaban for paroxysmal atrial fibrillation and atrial flutter. prophylactic bowel medications p.r.n.. Attended staffing, 15 minutes. Discussed with case management, nursing, dietitian, PT, OT. She lives in a single-level home with 1 step to enter. She lives with son and [id number] as well as elderly mother. Unclear how much assistance is available at home. Set tentative discharge date of May 22. Follow-up and continuity of care: The patient will need follow up with her primary care physician (Flavia Watson), Orthopedic surgery, cardiology, gastroenterology. 04/24/17 10:47 Subjective: No complaints this morning. Sleeping well, such pain adequately controlled. She uses occasional oxycodone. No cough or dyspnea, no fevers or chills. Objective: Vital Signs Temp Pulse Resp BP Pulse Ox 36.6 C 83 14 118/74 96 04/24/17 08:00 04/24/17 08:00 04/24/17 08:00 04/24/17 08:00 04/24/17 08:00 Laboratory Results 04/24/17 06:20 04/24/17 06:20 04/23/17 04/24/17 04/25/17 05:59 05:59 05:59 Intake Total 580 400 Output Total 500 250 Balance 80 150 - Time Spent With Patient Time Spent With Patient: Greater than 35 minutes staff time today, including more than 50% of time in coordination of care during staffing meeting, and counseling patient. Physical Exam - Physical Exam General Appearance: WD/WN, alert, no apparent distress, obese Respiratory: normal breath sounds, No crackles, No rhonchi, No wheezing Cardiac/Chest: regular rate, rhythm, edema (2 - 3 + RLE, 2+ LLE), No diastolic murmur, No systolic murmur Abdomen: normal bowel sounds, soft, No non-tender, No distended Skin: other (L knee graft site with granulation tissue, no erythema or purulence ) Neuro/Psych: no motor/sensory deficits, alert, normal mood/affect, oriented x 3 , other (Globally weak, non-focal) ICD10 Worksheet Patient Problems: Problems Problem Status Onset Morbid obesity Acute S/P total knee arthroplasty Acute Swelling of lower extremity Acute
[2017-04-24 09:59] LABS: HEMATOCRIT 26.1 % (38.0-47.0)
[2017-04-24 10:10] LABS: % SATURATION 26 % (20-55); TOTAL IRON BINDING CAPACITY 177 ug/dL (260-490)
[2017-04-24] MEDS: ACETAMINOPHEN 325 MG TAB PO PRN ×2 (16:18→22:21)
--- NOTE | 2017-04-24 17:34 | WOCRNPDOC ---
WOCRN Advanced Assessment Note - Skin Integrity Problem, Advanced Assess Left Medial Knee Dressing Type: Brayan Bandage, Gauze, Iodoform, Kerlix Dressing Description: Clean/Dry, Intact Exudate Amount: Scant Exudate Color: Reddish/Yellow Exudate Characteristic(s): Serosanguinous Integumentary Issue Intervention: Visualized Under Dressing Yamini Wound Tissue: Swollen Yamini Wound Swelling: Moderate Wound Bed Color: Red Wound Bed Constitution: Smooth Tissue (red, non-granulating) Site Measurement - Head-to-Toe Length X Width X Depth (cm): 2.1cmx1.7cmx0.1cm Skin Integrity Problem Comment: Small area of partial-thickness tissue loss noted medially, surrounded by intact epithelialized skin graft. Wound is shallow w/ friable edges, comprised of red, non-granulating tissue, no apparent necrosis, and no fluctuance in surrounding tissues. Patient does have residual swelling throughout her L knee and lower leg, but there is no erythema, warmth, or c/o pain when site was assessed. Existing orders from surgeon reviewed, and are appropriate. No need for wound care to follow up with patient. Please reconsult as needed.
[2017-04-24] MEDS: QUEtiapine FUMARATE 25 MG TAB PO SCH (20:59)
[2017-04-25] MEDS: ACETAMINOPHEN 325 MG TAB PO PRN ×3 (08:56→22:56)
[2017-04-25] MEDS: oxyCODONE IR 5 MG TAB PO PRN ×4 (08:59→22:56)
[2017-04-25] MEDS: APIXABAN 5 MG TAB PO SCH ×2 (10:14→21:09)
[2017-04-25] MEDS: BUMETANIDE 1 MG TAB PO SCH (10:14)
[2017-04-25] MEDS: PANTOPRAZOLE SODIUM 40 MG TAB PO SCH (10:15)
[2017-04-25] MEDS: CHLORHEXIDINE GLUCONATE 15 ML UDL PO SCH ×3 (10:15→20:12)
[2017-04-25] MEDS: MULTIVITAMINS 1 EACH TAB PO SCH (10:15)
[2017-04-25] MEDS: POTASSIUM CL 20 MEQ TAB PO SCH (10:16)
[2017-04-25] MEDS: POLYETHYLENE GLYCOL 3350 17 GM PKT PO PRN (10:17)
[2017-04-25] MEDS: THIAMINE HCL 100 MG TAB PO SCH (10:17)
--- NOTE | 2017-04-25 14:30 | SOAPPROG ---
SOAP Progress Note Assessment/Plan: Assessment: 62-year-old morbidly obese woman with a past medical history of bilateral knee arthroplasty, status post revision of her left total knee arthroplasty on 2016 with a prolonged hospital course and severe impairments in mobility and self-care. Her course has also been complicated by severe encephalopathy of unclear etiology with unclear cognitive deficits. * Impairments in mobility and self-care status post complicated total knee arthroplasty revision: Initial functional independence measure 56 On 2016. She transferred with sliding board, moderate assist of 2 to get her legs back into bed. She stood for 20 seconds with maximal assist of 2. Lower body dressing requires moderate to maximal assist, upper body is done with supervision. Bed mobility requires minimal to moderate assist Continue physical therapy and occupational therapy. * Status post total knee arthroplasty with revision, gastrocnemius flap, last surgery on 03/17/2017: Continue wound dressing changes MWF and pain management , increase mobilization. Cultures did not grow any isolate. Follow up with Orthopedic surgery. Oxycodone p.r.n. * Lower extremity swelling: D-dimer slightly positive. On Lasix 40 mg daily on discharge and renal function tolerating. There may be a component of anasarca with low albumin. Change diuretic to bumetanide from furosemide for less protein binding and better drug delivery to kidney. Limited lower extremity Doppler was negative on admission, however it did not rule out a proximal thrombosis. Consider CT venogram with contrast, however holding off on that for now because of her history of kidney failure. Plan to continue anticoagulation for her atrial fibrillation, but would consider further studies before stopping anticoagulation if less than 6 months. * Hypokalemia: Repleted on labs 04/24/2017. continue potassium supplement along with diuretic. * Anemia : Worse today, 04/24/2017. MCV is high. B12 normal on labs 2016. Reticulocyte count is appropriately elevated. Iron panel with low TIBC and normal iron is more consistent with anemia of chronic disease than of iron deficiency anemia. * Resolving encephalopathy : Resolved after 3 weeks of severe delirium, etiology unclear but may have been aseptic meningitis or encephalitis with very high protein in the CSF. May have also been a med effect from amiodarone or cephalosporin. Monitor. Continue evening quetiapine, 25 mg p.o. at bedtime, continue thiamin 100 mg p.o. daily. * Severe protein calorie malnutrition : Dietary consult , protein, albumin, and prealbumin are all low on admission. * History of VRE. Will enquire of Infection Control re duration of isolation. Stable/ resolved: * Pneumoperitoneum: Status post 14 days of ceftriaxone in acute care hospital, following up with Gastroenterology as an outpatient. They have been monitoring status post a unchanged repeat abdominal CT on 03/30/2017. plan to monitor clinically * Paroxysmal atrial fibrillation/ atrial flutter : On anticoagulation, apixaban , amiodarone has been stopped. Notes from hospital report ejection fraction of 65%. Following up with Cardiology as an outpatient. Apparently, her previous episodes of atrial fibrillation and atrial flutter were in the context of prior surgery, and she was asymptomatic. * History of loose stools: P.r.n. Lomotil can be used if needed, not ordered at this time * History of prolonged QTC: Caution with new medications, obtain ECG if needed * History of oral ulcers: Chlorhexidine rinse at her request * Encephalopathy. Resolved with normal screening per speech therapy. * Code Status: full code, discussed with patient on admission * Proph: currently on apixaban for paroxysmal atrial fibrillation and atrial flutter. prophylactic bowel medications p.r.n.. She lives in a single-level home with 1 step to enter. She lives with son and [id number] as well as elderly mother. Unclear how much assistance is available at home. Set tentative discharge date of May 22. Follow-up and continuity of care: The patient will need follow up with her primary care physician (Flavia Watson), Orthopedic surgery, cardiology, gastroenterology. 04/24/17 10:47 04/25/17 14:30 Subjective: The patient complains of sore shoulders from working with physical therapy. She has not noted markedly increased urination on bumetanide starting today rather than furosemide previously. Objective: Vital Signs Temp Pulse Resp BP Pulse Ox 37.2 C 76 16 114/71 91 L 04/25/17 08:00 04/25/17 08:00 04/25/17 08:00 04/25/17 08:00 04/25/17 08:00 Laboratory Results 04/24/17 06:20 04/24/17 06:20 04/24/17 04/25/17 04/26/17 05:59 05:59 05:59 Intake Total 400 700 Output Total 247 958 Balance 150 175 Physical Exam - Physical Exam General Appearance: WD/WN, alert, no apparent distress, obese Respiratory: normal breath sounds, No crackles, No rhonchi, No wheezing Cardiac/Chest: regular rate, rhythm, edema (2+ RLE, 3+ LLE), No diastolic murmur , No systolic murmur Skin: normal color, warm/dry Neuro/Psych: no motor/sensory deficits, alert, normal mood/affect, oriented x 3 ICD10 Worksheet Patient Problems: Problems Problem Status Onset Morbid obesity Acute S/P total knee arthroplasty Acute Swelling of lower extremity Acute VRE (vancomycin-resistant Enterococci) Acute ~04/09/17
[2017-04-25] MEDS: QUEtiapine FUMARATE 25 MG TAB PO SCH (21:09)
[2017-04-26] MEDS: ACETAMINOPHEN 325 MG TAB PO PRN ×2 (05:24→16:10)
[2017-04-26] MEDS: APIXABAN 5 MG TAB PO SCH ×2 (07:52→21:14)
[2017-04-26] MEDS: BUMETANIDE 1 MG TAB PO SCH (07:53)
[2017-04-26] MEDS: CHLORHEXIDINE GLUCONATE 15 ML UDL PO SCH (07:55)
[2017-04-26] MEDS: POTASSIUM CL 20 MEQ TAB PO SCH (07:55)
[2017-04-26] MEDS: PANTOPRAZOLE SODIUM 40 MG TAB PO SCH (07:55)
[2017-04-26] MEDS: MULTIVITAMINS 1 EACH TAB PO SCH (07:55)
[2017-04-26] MEDS: THIAMINE HCL 100 MG TAB PO SCH (07:56)
[2017-04-26] MEDS: oxyCODONE IR 5 MG TAB PO PRN ×2 (10:53→21:16)
--- NOTE | 2017-04-26 13:04 | SOAPPROG ---
SOAP Progress Note Assessment/Plan: Assessment: 62-year-old morbidly obese woman with a past medical history of bilateral knee arthroplasty, status post revision of her left total knee arthroplasty on 2016 with subsequent wound dehiscence and infection and a prolonged hospital course with repeat surgeries and gastrocnemius flap for closure, and severe impairments in mobility and self-care. Her course has also been complicated by severe encephalopathy of unclear etiology with unclear cognitive deficits. * Impairments in mobility and self-care status post complicated total knee arthroplasty revision: Initial functional independence measure 56 on 2016. She transferred with sliding board, moderate assist of 2 to get her legs back into bed. She stood for 20 seconds with maximal assist of 2. Lower body dressing requires moderate to maximal assist, upper body is done with supervision. Bed mobility requires minimal to moderate assist Continue physical therapy and occupational therapy. * Status post total knee arthroplasty with revision, gastrocnemius flap, last surgery on 03/17/2017: Continue wound dressing changes MWF and pain management , increase mobilization. Cultures did not grow any isolate. Follow up with Orthopedic surgery. Oxycodone p.r.n. * Lower extremity swelling: D-dimer slightly positive but not the unexpected after surgeries. Changed diuretic on 04/25/17 to bumetanide from furosemide for less protein binding and better drug delivery to kidney given low albumin. Limited lower extremity Doppler was negative on admission, however it did not rule out a proximal thrombosis. Consider CT venogram with contrast, however holding off on that for now because of her history of kidney failure and one non -functioning kidney. Outpatient diuretics were furosemide 40 mg BID, spironolactone, and PRN metolazone.. Increase bumetanide to 2 mg QD starting 04/27/17. Metolazone 2.5 mg X 1 04/26/17; caution blood pressure and h/o ARF. Check BMP, LFTs in AM. * Hypokalemia: Repleted on labs 04/24/2017. continue potassium supplement along with diuretic. * Anemia: Worse 04/24/2017. MCV is high. B12 normal on labs 04/24/2017. Reticulocyte count is appropriately elevated. Iron panel with low TIBC and normal iron is more consistent with anemia of chronic disease than of iron deficiency anemia. * Severe protein calorie malnutrition: Dietary consult , protein, albumin, and prealbumin are all low on admission. * History of VRE. 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 Stable/ resolved: * Pneumoperitoneum: Status post 14 days of ceftriaxone in acute care hospital, following up with Gastroenterology as an outpatient. They have been monitoring status post a unchanged repeat abdominal CT on 03/30/2017. plan to monitor clinically * Paroxysmal atrial fibrillation/ atrial flutter : On anticoagulation, apixaban , amiodarone has been stopped. Notes from hospital report ejection fraction of 65%. Following up with Cardiology as an outpatient. Apparently, her previous episodes of atrial fibrillation and atrial flutter were in the context of prior surgery, and she was asymptomatic. * History of loose stools: P.r.n. Lomotil can be used if needed, not ordered at this time * History of prolonged QTC: Caution with new medications, obtain ECG if needed * Encephalopathy. May have been the aseptic meningitis with high CSF protein or medication effect related to amiodarone or cephalosporin. Resolved, with normal screening per speech therapy. * Code Status: full code, discussed with patient on admission * Proph: currently on apixaban for paroxysmal atrial fibrillation and atrial flutter. prophylactic bowel medications p.r.n.. She lives in a single-level home with 1 step to enter. She lives with son and [id number]-het as well as elderly mother. Unclear how much assistance is available at home. Set tentative discharge date of May 22. Follow-up and continuity of care: The patient will need follow up with her primary care physician (Flavia Watson), Orthopedic surgery, cardiology, gastroenterology. 04/26/17 12:45 Subjective: C/O legs feeling heavy. Weight of legs interferes with mobility. O/W w/out complaint. Denies fevers, chills, cough, dyspnea. Objective: Vital Signs Temp Pulse Resp BP Pulse Ox 36.6 C 72 16 101/65 92 04/26/17 06:26 04/26/17 06:26 04/26/17 06:26 04/26/17 06:26 04/26/17 06:26 Laboratory Results 04/24/17 06:20 04/24/17 06:20 04/25/17 04/26/17 04/27/17 05:59 05:59 05:59 Intake Total 700 700 600 Output Total 525 1000 Balance 175 -300 600 Physical Exam - Physical Exam General Appearance: WD/WN, alert, no apparent distress, obese Respiratory: normal breath sounds, No crackles, No rhonchi, No wheezing Cardiac/Chest: regular rate, rhythm, edema (3 - 4 + B LE), JVD, No diastolic murmur, No systolic murmur Skin: normal color, warm/dry Neuro/Psych: no motor/sensory deficits, alert, normal mood/affect, oriented x 3 ICD10 Worksheet Patient Problems: Problems Problem Status Onset Morbid obesity Acute S/P total knee arthroplasty Acute Swelling of lower extremity Acute VRE (vancomycin-resistant Enterococci) Acute ~04/09/17
[2017-04-26] MEDS ORDERED: METOLAZONE 5 MG TAB PO ONE (13:05)
[2017-04-26] MEDS ORDERED: BUMETANIDE 1 MG TAB PO SCH (13:05)
[2017-04-26] MEDS: QUEtiapine FUMARATE 25 MG TAB PO SCH (21:14)
[2017-04-27] MEDS: BUMETANIDE 1 MG TAB PO SCH (07:34)
[2017-04-27] MEDS: MULTIVITAMINS 1 EACH TAB PO SCH (07:35)
[2017-04-27] MEDS: POTASSIUM CL 20 MEQ TAB PO SCH (07:35)
[2017-04-27] MEDS: THIAMINE HCL 100 MG TAB PO SCH (07:35)
[2017-04-27] MEDS: PANTOPRAZOLE SODIUM 40 MG TAB PO SCH (07:35)
[2017-04-27 10:12] LABS: HEMATOCRIT 26.2 % (38.0-47.0); HEMOGLOBIN 8.4 g/dL (12.6-16.3)
[2017-04-27 10:38] LABS: ALANINE AMINOTRANSFERASE 22 IU/L (9-52); ALBUMIN 2.9 g/dL (3.5-5.0); ALKALINE PHOSPHATASE 50 IU/L (38-126); ANION GAP 13 mEq/L (8-16); ASPARTATE AMINOTRANSFERASE 24 IU/L (14-46); BILIRUBIN,TOTAL 0.5 mg/dL (0.1-1.4); CALCIUM 7.6 mg/dL (8.5-10.4); CARBON DIOXIDE 25 mEq/l (22-31); CHLORIDE 100 mEq/L (97-110); GLOMERULAR FILTRATION RATE 56; GLUCOSE 79 mg/dL (70-100); POTASSIUM 3.5 mEq/L (3.5-5.2); SODIUM 138 mEq/L (134-144); TOTAL PROTEIN 5.8 g/dL (6.3-8.2)
[2017-04-27] MEDS: ACETAMINOPHEN 325 MG TAB PO PRN (11:32)
[2017-04-27] MEDS: oxyCODONE IR 5 MG TAB PO PRN (11:32)
[2017-04-27] MEDS ORDERED: METOLAZONE 5 MG TAB PO ONE (13:36)
--- NOTE | 2017-04-27 13:46 | SOAPPROG ---
SOAP Progress Note Assessment/Plan: Assessment: 62-year-old morbidly obese woman with a past medical history of bilateral knee arthroplasty, status post revision of her left total knee arthroplasty on 2016 with subsequent wound dehiscence and infection and a prolonged hospital course with repeat surgeries and gastrocnemius flap for closure, and severe impairments in mobility and self-care. Her course has also been complicated by severe encephalopathy of unclear etiology with unclear cognitive deficits. * Impairments in mobility and self-care status post complicated total knee arthroplasty revision: Initial functional independence measure 56 on 2016. She transferred with sliding board, moderate assist of 2 to get her legs back into bed. She stood for 20 seconds with maximal assist of 2. Lower body dressing requires moderate to maximal assist, upper body is done with supervision. Bed mobility requires minimal to moderate assist Continue physical therapy and occupational therapy. * Status post total knee arthroplasty with revision, gastrocnemius flap, last surgery on 03/17/2017: Continue wound dressing changes MWF and pain management , increase mobilization. Cultures did not grow any isolate. Follow up with Orthopedic surgery. Oxycodone p.r.n. * Lower extremity swelling: D-dimer slightly positive but not the unexpected after surgeries. Changed diuretic on 04/25/17 to bumetanide from furosemide for less protein binding and better drug delivery to kidney given low albumin. Limited lower extremity Doppler was negative on admission, however it did not rule out a proximal thrombosis. Consider CT venogram with contrast, however holding off on that for now because of her history of kidney failure and one non -functioning kidney. Outpatient diuretics were furosemide 40 mg BID, spironolactone, and PRN metolazone.. Metolazone 2.5 mg X 1 04/26/17 with good response; repeat x1 2016. Check BMP, LFTs normal 04/27/2017. Initiate Brayan wrap to the left lower extremity. * Hypokalemia: Repleted on labs 04/24/2017 and 04/27/2017. continue potassium supplement along with diuretic. * Anemia: Worse 04/24/2017. Improving 04/27/2017. MCV is high. B12 normal on labs 04/24/2017. Reticulocyte count is appropriately elevated. Iron panel with low TIBC and normal iron is more consistent with anemia of chronic disease than of iron deficiency anemia. * Severe protein calorie malnutrition: Dietary consult , protein, albumin, and prealbumin are all low on admission. Improving 04/27/2017. * History of VRE. 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 * Hematochezia with positive stool Hemoccult. Blood counts improved however and vitals are stable. Held leak was x1 dose restarting this evening 2016. Follow up after discharge with Gastroenterology regarding source of bleeding and with Cardiology regarding continued need for anticoagulation for paroxysmal AFib. Continue pantoprazole. Stable/ resolved: * Pneumoperitoneum: Status post [address] [facility], following up with Gastroenterology as an outpatient. They have been monitoring status post a unchanged repeat abdominal CT on 03/30/2017. plan to monitor clinically * Paroxysmal atrial fibrillation/ atrial flutter : On anticoagulation, apixaban , amiodarone has been stopped. Notes from hospital report ejection fraction of 65%. Following up with Cardiology as an outpatient. Apparently, her previous episodes of atrial fibrillation and atrial flutter were in the context of prior surgery, and she was asymptomatic. * History of loose stools: P.r.n. Lomotil can be used if needed, not ordered at this time * History of prolonged QTC: Caution with new medications, obtain ECG if needed * Encephalopathy. May have been the aseptic meningitis with high CSF protein or medication effect related to amiodarone or cephalosporin. Resolved, with normal screening per speech therapy. * Code Status: full code, discussed with patient on admission * Proph: currently on apixaban for paroxysmal atrial fibrillation and atrial flutter. prophylactic bowel medications p.r.n.. She lives in a single-level home with 1 step to enter. She lives with son and [id number] as well as elderly mother. Unclear how much assistance is available at home. Set tentative discharge date of May 22. Follow-up and continuity of care: The patient will need follow up with her primary care physician (Flavia Watson), Orthopedic surgery, cardiology, gastroenterology. 04/27/17 13:39 Subjective: Reports urinating 6 x so far today. Also reports some massive bowel movement this morning. Denies fevers, chills, dysuria, flank pain; she says when she has a urinary tract infection she knows be because she has flank pain. Objective: Vital Signs Temp Pulse Resp BP Pulse Ox 36.8 C 72 17 121/76 H 94 04/27/17 08:00 04/27/17 08:00 04/27/17 08:00 04/27/17 08:00 04/27/17 08:00 Laboratory Results 04/27/17 09:10 04/27/17 09:10 04/26/17 04/27/17 04/28/17 05:59 05:59 05:59 Intake Total 700 1080 Output Total 1000 1050 Balance -300 30 Physical Exam - Physical Exam General Appearance: WD/WN, alert, no apparent distress, obese Respiratory: No accessory muscle use, No decreased breath sounds Cardiac/Chest: edema (4+ LLE, 3+ RLE) Skin: normal color, warm/dry Neuro/Psych: no motor/sensory deficits, alert, normal mood/affect, oriented x 3 , other (Working with PT in standing frame; has limited standing tolerance.) ICD10 Worksheet Patient Problems: Problems Problem Status Onset Morbid obesity Acute S/P total knee arthroplasty Acute Swelling of lower extremity Acute VRE (vancomycin-resistant Enterococci) Acute ~04/09/17
[2017-04-27] MEDS: QUEtiapine FUMARATE 25 MG TAB PO SCH (20:58)
[2017-04-27] MEDS: APIXABAN 5 MG TAB PO SCH (20:58)
[2017-04-28] MEDS: ACETAMINOPHEN 325 MG TAB PO PRN ×3 (00:32→22:48)
[2017-04-28] MEDS: oxyCODONE IR 5 MG TAB PO PRN ×4 (00:33→22:47)
--- NOTE | 2017-04-28 09:15 | SOAPPROG ---
SOAP Progress Note Assessment/Plan: Assessment: 62-year-old morbidly obese woman with a past medical history of bilateral knee arthroplasty, status post revision of her left total knee arthroplasty on 2016 with subsequent wound dehiscence and infection and a prolonged hospital course with repeat surgeries and gastrocnemius flap for closure, and severe impairments in mobility and self-care. Her course has also been complicated by severe encephalopathy of unclear etiology with unclear cognitive deficits. Today's update: She was noted to have a significant drop in weight from 115.9 kg to 109.8 kg since yesterday. Asking for nursing to recheck the weight today. She continues on diuretics, noticing some improvement in the swelling in her legs, Input and output do not seem to match weight changes though. ordering labs for tomorrow morning to monitor kidney function, stable at last check. Continue following weights. No change the medications today. Consider increasing the Bumetanide if needed. * Impairments in mobility and self-care status post complicated total knee arthroplasty revision: Initial functional independence measure 56 on 2016. She transferred with sliding board, moderate assist of 2 to get her legs back into bed. She stood for 20 seconds with maximal assist of 2. Lower body dressing requires moderate to maximal assist, upper body is done with supervision. Bed mobility requires minimal to moderate assist Continue physical therapy and occupational therapy. * Status post total knee arthroplasty with revision, gastrocnemius flap, last surgery on 03/17/2017: Continue wound dressing changes MWF and pain management , increase mobilization. Cultures did not grow any isolate. Follow up with Orthopedic surgery. Oxycodone p.r.n. * Lower extremity swelling: D-dimer slightly positive but not the unexpected after surgeries. Changed diuretic on 04/25/17 to bumetanide from furosemide for less protein binding and better drug delivery to kidney given low albumin. Limited lower extremity Doppler was negative on admission, however it did not rule out a proximal thrombosis. Consider CT venogram with contrast, however holding off on that for now because of her history of kidney failure and one non -functioning kidney. Outpatient diuretics were furosemide 40 mg BID, spironolactone, and PRN metolazone.. Metolazone 2.5 mg X 1 04/26/17 with good response; repeat x1 2016. Check BMP, LFTs normal 04/27/2017. Initiate Brayan wrap to the left lower extremity. * Hypokalemia: Repleted on labs 04/24/2017 and 04/27/2017. continue potassium supplement along with diuretic. * Anemia: Worse 04/24/2017. Improving 04/27/2017. MCV is high. B12 normal on labs 04/24/2017. Reticulocyte count is appropriately elevated. Iron panel with low TIBC and normal iron is more consistent with anemia of chronic disease than of iron deficiency anemia. * Severe protein calorie malnutrition: Dietary consult , protein, albumin, and prealbumin are all low on admission. Improving 04/27/2017. * History of VRE. 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 * Hematochezia with positive stool Hemoccult. Blood counts improved however and vitals are stable. Held leak was x1 dose restarting this evening 2016. Follow up after discharge with Gastroenterology regarding source of bleeding and with Cardiology regarding continued need for anticoagulation for paroxysmal AFib. Continue pantoprazole. Stable/ resolved: * Pneumoperitoneum: Status post 14 days of ceftriaxone in acute care hospital, following up with Gastroenterology as an outpatient. They have been monitoring status post a unchanged repeat abdominal CT on 03/30/2017. plan to monitor clinically * Paroxysmal atrial fibrillation/ atrial flutter : On anticoagulation, apixaban , amiodarone has been stopped. Notes from hospital report ejection fraction of 65%. Following up with Cardiology as an outpatient. Apparently, her previous episodes of atrial fibrillation and atrial flutter were in the context of prior surgery, and she was asymptomatic. * History of loose stools: P.r.n. Lomotil can be used if needed, not ordered at this time * History of prolonged QTC: Caution with new medications, obtain ECG if needed * Encephalopathy. May have been the aseptic meningitis with high CSF protein or medication effect related to amiodarone or cephalosporin. Resolved, with normal screening per speech therapy. * Code Status: full code, discussed with patient on admission * Proph: currently on apixaban for paroxysmal atrial fibrillation and atrial flutter. prophylactic bowel medications p.r.n.. She lives in a single-level home with 1 step to enter. She lives with son and [id number] as well as elderly mother. Unclear how much assistance is available at home. Set tentative discharge date of May 22. Follow-up and continuity of care: The patient will need follow up with her primary care physician (Flavia Watson), Orthopedic surgery, cardiology, gastroenterology. 04/22/17 09:20 04/23/17 10:20 04/28/17 09:12 Subjective: chief complaint: Leg swelling No acute events overnight. Patient endorses that the leg swelling is improved especially with Brayan wraps on the right side. She continues to diurese, no concerns today. She is working well in therapies, making slow progress. No new shortness of breath or chest pain, no new numbness, tingling, or weakness. Weight yesterday was list is 115.9 kg and today is 109.8 kg. No labs ordered for today. Objective: Vital Signs Temp Pulse Resp BP Pulse Ox 36.8 C 67 16 109/62 93 04/28/17 06:47 04/28/17 06:47 04/28/17 06:47 04/28/17 06:47 04/28/17 06:47 Laboratory Results 04/27/17 09:10 04/27/17 09:10 04/27/17 04/28/17 04/29/17 05:59 05:59 05:59 Intake Total 1080 Output Total 1050 250 Balance 30 -250 Physical Exam - Physical Exam General Appearance: WD/WN, alert, no apparent distress EENT: No scleral icterus (R), No scleral icterus (L) Respiratory: No accessory muscle use, No decreased breath sounds Cardiac/Chest: normal peripheral pulses, regular rate, rhythm Abdomen: No guarding Skin: normal color, warm/dry, No cyanosis Extremities: pedal edema, swelling ( Bilateral, 2 to 3+, though seems to be improving.) Neuro/Psych: alert, normal mood/affect ICD10 Worksheet Patient Problems: Problems Problem Status Onset Morbid obesity Acute S/P total knee arthroplasty Acute Swelling of lower extremity Acute VRE (vancomycin-resistant Enterococci) Acute ~04/09/17 - ICD10 Problem Qualifiers (1) S/P total knee arthroplasty Qualifiers: Laterality: bilateral Qualified Code(s): Z96.653 - Presence of artificial knee joint, bilateral (2) Swelling of lower extremity (3) Morbid obesity
[2017-04-28] MEDS: POTASSIUM CL 20 MEQ TAB PO SCH (09:31)
[2017-04-28] MEDS: THIAMINE HCL 100 MG TAB PO SCH (09:31)
[2017-04-28] MEDS: PANTOPRAZOLE SODIUM 40 MG TAB PO SCH (09:31)
[2017-04-28] MEDS: APIXABAN 5 MG TAB PO SCH ×2 (09:31→20:50)
[2017-04-28] MEDS: MULTIVITAMINS 1 EACH TAB PO SCH (09:31)
[2017-04-28] MEDS: BUMETANIDE 1 MG TAB PO SCH (09:31)
--- NOTE | 2017-04-28 10:33 | CPEKG ---
Heart Rate: 72 RR Interval: 833 P-R Interval: 168 QRSD Interval: 76 QT Interval: 472 QTC Interval: 517 P [place]: 77 QRS [place]: 91 T Wave [place]: 217 EKG Severity - ABNORMAL ECG - EKG Impression: SINUS RHYTHM EKG Impression: LOW VOLTAGE THROUGHOUT EKG Impression: NONSPECIFIC T ABNORMALITIES, DIFFUSE LEADS EKG Impression: PROLONGED QT INTERVAL Electronically Signed By: Emmanuel Becerra 01-May-2017 07:37:32
[2017-04-28] MEDS: QUEtiapine FUMARATE 25 MG TAB PO SCH (20:50)
[2017-04-29] MEDS: MULTIVITAMINS 1 EACH TAB PO SCH (08:11)
[2017-04-29] MEDS: BUMETANIDE 1 MG TAB PO SCH (08:11)
[2017-04-29] MEDS: PANTOPRAZOLE SODIUM 40 MG TAB PO SCH (08:11)
[2017-04-29] MEDS: APIXABAN 5 MG TAB PO SCH ×2 (08:11→21:15)
[2017-04-29] MEDS: THIAMINE HCL 100 MG TAB PO SCH (08:11)
[2017-04-29] MEDS: POTASSIUM CL 20 MEQ TAB PO SCH (08:11)
[2017-04-29] MEDS: ACETAMINOPHEN 325 MG TAB PO PRN ×2 (09:27→23:00)
[2017-04-29] MEDS: oxyCODONE IR 5 MG TAB PO PRN ×2 (09:28→23:00)
--- NOTE | 2017-04-29 09:40 | SOAPPROG ---
SOAP Progress Note Assessment/Plan: Assessment: SOAP Progress Note Assessment/Plan: Assessment: 62-year-old morbidly obese woman with a past medical history of bilateral knee arthroplasty, status post revision of her left total knee arthroplasty on 2016 with subsequent wound dehiscence and infection and a prolonged hospital course with repeat surgeries and gastrocnemius flap for closure, and severe impairments in mobility and self-care. Her course has also been complicated by severe encephalopathy of unclear etiology with unclear cognitive deficits. Today's update: Continues to report improvement in the swelling in her legs, continue following weights. No change the medications today. * Impairments in mobility and self-care status post complicated total knee arthroplasty revision: Initial functional independence measure 56 on 2016. She transferred with sliding board, moderate assist of 2 to get her legs back into bed. She stood for 20 seconds with maximal assist of 2. Lower body dressing requires moderate to maximal assist, upper body is done with supervision. Bed mobility requires minimal to moderate assist Continue physical therapy and occupational therapy. * Status post total knee arthroplasty with revision, gastrocnemius flap, last surgery on 03/17/2017: Continue wound dressing changes MWF and pain management , increase mobilization. Cultures did not grow any isolate. Follow up with Orthopedic surgery. Oxycodone p.r.n. * Lower extremity swelling: D-dimer slightly positive but not the unexpected after surgeries. Changed diuretic on 04/25/17 to bumetanide from furosemide for less protein binding and better drug delivery to kidney given low albumin. Limited lower extremity Doppler was negative on admission, however it did not rule out a proximal thrombosis. Consider CT venogram with contrast, however holding off on that for now because of her history of kidney failure and one non -functioning kidney. * Outpatient diuretics were furosemide 40 mg BID, spironolactone, and PRN metolazone.. Metolazone 2.5 mg X 1 04/26/17 with good response; repeat x1 2016. Check BMP, LFTs normal 04/27/2017. Initiate Brayan wrap to the left lower extremity. * Hypokalemia: Repleted on labs 04/24/2017 and 04/27/2017. continue potassium supplement along with diuretic. * Anemia: Worse 04/24/2017. Improving 04/27/2017. MCV is high. B12 normal on labs 04/24/2017. Reticulocyte count is appropriately elevated. Iron panel with low TIBC and normal iron is more consistent with anemia of chronic disease than of iron deficiency anemia. * Severe protein calorie malnutrition: Dietary consult , protein, albumin, and prealbumin are all low on admission. Improving 04/27/2017. * History of VRE. 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 * Hematochezia with positive stool Hemoccult. Blood counts improved however and vitals are stable. Held leak was x1 dose restarting this evening 2016. Follow up after discharge with Gastroenterology regarding source of bleeding and with Cardiology regarding continued need for anticoagulation for paroxysmal AFib. Continue pantoprazole. Stable/ resolved: * Pneumoperitoneum: Status post 14 days of ceftriaxone in acute care hospital, following up with Gastroenterology as an outpatient. They have been monitoring status post a unchanged repeat abdominal CT on 03/30/2017. plan to monitor clinically * Paroxysmal atrial fibrillation/ atrial flutter : On anticoagulation, apixaban , amiodarone has been stopped. Notes from hospital report ejection fraction of 65%. Following up with Cardiology as an outpatient. Apparently, her previous episodes of atrial fibrillation and atrial flutter were in the context of prior surgery, and she was asymptomatic. * History of loose stools: P.r.n. Lomotil can be used if needed, not ordered at this time * History of prolonged QTC: Caution with new medications, obtain ECG if needed * Encephalopathy. May have been the aseptic meningitis with high CSF protein or medication effect related to amiodarone or cephalosporin. Resolved, with normal screening per speech therapy. * Code Status: full code, discussed with patient on admission * Proph: currently on apixaban for paroxysmal atrial fibrillation and atrial flutter. prophylactic bowel medications p.r.n.. She lives in a single-level home with 1 step to enter. She lives with son and [id number] as well as elderly mother. Unclear how much assistance is available at home. Set tentative discharge date of May 22. Follow-up and continuity of care: The patient will need follow up with her primary care physician (Flavia Watson MD), Orthopedic surgery, cardiology, gastroenterology. Plan: Cont Dr Moore rehab treatment plan 04/29/17 09:39 Subjective: No new problems or C/O's No F/C/N/V/D No issues per nursing Objective: Vital Signs Temp Pulse Resp BP Pulse Ox 36.9 C 69 18 96/60 L 93 04/29/17 05:51 04/29/17 05:51 04/29/17 05:51 04/29/17 05:51 04/29/17 05:51 Laboratory Results 04/27/17 09:10 04/27/17 09:10 04/28/17 04/29/17 04/30/17 05:59 05:59 05:59 Intake Total 880 Output Total 250 900 Balance -250 -20 Physical Exam - Physical Exam General Appearance: alert, no apparent distress Neck: supple Respiratory: lungs clear Cardiac/Chest: regular rate, rhythm Skin: normal color, warm/dry Extremities: pedal edema, swelling (L knee, non errythematous) Neuro/Psych: alert, normal mood/affect, oriented x 3 ICD10 Worksheet Patient Problems: Problems Problem Status Onset Morbid obesity Acute S/P total knee arthroplasty Acute Swelling of lower extremity Acute VRE (vancomycin-resistant Enterococci) Acute ~04/09/17
[2017-04-29 13:17] LABS: ANION GAP 12 mEq/L (8-16); CALCIUM 7.9 mg/dL (8.5-10.4); CARBON DIOXIDE 26 mEq/l (22-31); CHLORIDE 99 mEq/L (97-110); GLOMERULAR FILTRATION RATE 56; GLUCOSE 82 mg/dL (70-100); POTASSIUM 3.5 mEq/L (3.5-5.2); SODIUM 137 mEq/L (134-144)
[2017-04-29] MEDS: QUEtiapine FUMARATE 25 MG TAB PO SCH (21:15)
[2017-04-30] MEDS: PANTOPRAZOLE SODIUM 40 MG TAB PO SCH (08:41)
[2017-04-30] MEDS: BUMETANIDE 1 MG TAB PO SCH (08:41)
[2017-04-30] MEDS: POTASSIUM CL 20 MEQ TAB PO SCH (08:42)
[2017-04-30] MEDS: APIXABAN 5 MG TAB PO SCH ×2 (08:42→21:38)
[2017-04-30] MEDS: MULTIVITAMINS 1 EACH TAB PO SCH (08:42)
[2017-04-30] MEDS: THIAMINE HCL 100 MG TAB PO SCH (08:42)
[2017-04-30] MEDS: oxyCODONE IR 5 MG TAB PO PRN ×2 (09:34→22:41)
[2017-04-30] MEDS: ACETAMINOPHEN 325 MG TAB PO PRN ×2 (09:34→22:40)
--- NOTE | 2017-04-30 11:49 | SOAPPROG ---
SOAP Progress Note Assessment/Plan: Assessment: SOAP Progress Note Assessment/Plan: Assessment: 62-year-old morbidly obese woman with a past medical history of bilateral knee arthroplasty, status post revision of her left total knee arthroplasty on 2016 with subsequent wound dehiscence and infection and a prolonged hospital course with repeat surgeries and gastrocnemius flap for closure, and severe impairments in mobility and self-care. Her course has also been complicated by severe encephalopathy of unclear etiology with unclear cognitive deficits. Today's update: Continues to report improvement in the swelling in her legs, continue following weights. No change in medications today. * Impairments in mobility and self-care status post complicated total knee arthroplasty revision: Initial functional independence measure 56 on 2016. She transferred with sliding board, moderate assist of 2 to get her legs back into bed. She stood for 20 seconds with maximal assist of 2. Lower body dressing requires moderate to maximal assist, upper body is done with supervision. Bed mobility requires minimal to moderate assist Continue physical therapy and occupational therapy. * Status post total knee arthroplasty with revision, gastrocnemius flap, last surgery on 03/17/2017: Continue wound dressing changes MWF and pain management , increase mobilization. Cultures did not grow any isolate. Follow up with Orthopedic surgery. Oxycodone p.r.n. * Lower extremity swelling: D-dimer slightly positive but not the unexpected after surgeries. Changed diuretic on 04/25/17 to bumetanide from furosemide for less protein binding and better drug delivery to kidney given low albumin. Limited lower extremity Doppler was negative on admission, however it did not rule out a proximal thrombosis. Consider CT venogram with contrast, however holding off on that for now because of her history of kidney failure and one non -functioning kidney. * Outpatient diuretics were furosemide 40 mg BID, spironolactone, and PRN metolazone.. Metolazone 2.5 mg X 1 04/26/17 with good response; repeat x1 2016. Check BMP, LFTs normal 04/27/2017. Initiate Brayan wrap to the left lower extremity. * Hypokalemia: Repleted on labs 04/24/2017 and 04/27/2017. continue potassium supplement along with diuretic. * Anemia: Worse 04/24/2017. Improving 04/27/2017. MCV is high. B12 normal on labs 04/24/2017. Reticulocyte count is appropriately elevated. Iron panel with low TIBC and normal iron is more consistent with anemia of chronic disease than of iron deficiency anemia. * Severe protein calorie malnutrition: Dietary consult , protein, albumin, and prealbumin are all low on admission. Improving 04/27/2017. * History of VRE. 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 * Hematochezia with positive stool Hemoccult. Blood counts improved however and vitals are stable. Held leak was x1 dose restarting this evening 2016. Follow up after discharge with Gastroenterology regarding source of bleeding and with Cardiology regarding continued need for anticoagulation for paroxysmal AFib. Continue pantoprazole. Stable/ resolved: * Pneumoperitoneum: Status post 14 days of ceftriaxone in acute care hospital, following up with Gastroenterology as an outpatient. They have been monitoring status post a unchanged repeat abdominal CT on 03/30/2017. plan to monitor clinically * Paroxysmal atrial fibrillation/ atrial flutter : On anticoagulation, apixaban , amiodarone has been stopped. Notes from hospital report ejection fraction of 65%. Following up with Cardiology as an outpatient. Apparently, her previous episodes of atrial fibrillation and atrial flutter were in the context of prior surgery, and she was asymptomatic. * History of loose stools: P.r.n. Lomotil can be used if needed, not ordered at this time * History of prolonged QTC: Caution with new medications, obtain ECG if needed * Encephalopathy. May have been the aseptic meningitis with high CSF protein or medication effect related to amiodarone or cephalosporin. Resolved, with normal screening per speech therapy. * Code Status: full code, discussed with patient on admission * Proph: currently on apixaban for paroxysmal atrial fibrillation and atrial flutter. prophylactic bowel medications p.r.n.. She lives in a single-level home with 1 step to enter. She lives with son and [id number] as well as elderly mother. Unclear how much assistance is available at home. Set tentative discharge date of May 22. Follow-up and continuity of care: The patient will need follow up with her primary care physician (Flavia Watson MD), Orthopedic surgery, cardiology, gastroenterology. Plan: Cont Dr Freire's rehab treatment plan 04/30/17 11:46 Subjective: no new problems or C/O's Medically stable Afeb No SOB/N/V/D/C Starting standing and pre gait exercises in co-treats Objective: Vital Signs Temp Pulse Resp BP Pulse Ox 36.9 C 70 18 109/70 93 04/30/17 06:06 04/30/17 06:06 04/30/17 06:06 04/30/17 06:06 04/30/17 06:06 Laboratory Results 04/27/17 09:10 04/29/17 11:30 04/29/17 04/30/17 05/01/17 05:59 05:59 05:59 Intake Total 880 978 Output Total 900 Balance -20 978 Physical Exam - Physical Exam General Appearance: alert, no apparent distress Neck: supple Respiratory: lungs clear Cardiac/Chest: regular rate, rhythm Extremities: pedal edema (Marked RLE, L knee) Neuro/Psych: alert, normal mood/affect, oriented x 3, other (no gross changes) ICD10 Worksheet Patient Problems: Problems Problem Status Onset Morbid obesity Acute S/P total knee arthroplasty Acute Swelling of lower extremity Acute VRE (vancomycin-resistant Enterococci) Acute ~04/09/17
[2017-04-30] MEDS: QUEtiapine FUMARATE 25 MG TAB PO SCH (21:38)
[2017-05-01] MEDS: APIXABAN 5 MG TAB PO SCH ×2 (08:30→21:04)
[2017-05-01] MEDS: BUMETANIDE 1 MG TAB PO SCH (08:30)
[2017-05-01] MEDS: MULTIVITAMINS 1 EACH TAB PO SCH (08:31)
[2017-05-01] MEDS: PANTOPRAZOLE SODIUM 40 MG TAB PO SCH (08:31)
[2017-05-01] MEDS: POTASSIUM CL 20 MEQ TAB PO SCH (08:32)
[2017-05-01] MEDS: THIAMINE HCL 100 MG TAB PO SCH (08:32)
[2017-05-01] MEDS: oxyCODONE IR 5 MG TAB PO PRN ×2 (09:42→22:06)
[2017-05-01] MEDS: ACETAMINOPHEN 325 MG TAB PO PRN ×3 (09:43→22:07)
--- NOTE | 2017-05-01 13:02 | SOAPPROG ---
SOAP Progress Note Assessment/Plan: Assessment: 62-year-old morbidly obese woman with a past medical history of bilateral knee arthroplasty, status post revision of her left total knee arthroplasty on 2016 with subsequent wound dehiscence and infection and a prolonged hospital course with repeat surgeries and gastrocnemius flap for closure, and severe impairments in mobility and self-care. Her course has also been complicated by severe encephalopathy of unclear etiology with unclear cognitive deficits. * Impairments in mobility and self-care status post complicated total knee arthroplasty revision: Initial functional independence measure 56 on 04/24/2017 ; improved to 63 as of 05/01/2017. Requires minimal assist with bed mobility sometimes needs maximal assistance of 2 to get her legs back into bed. She has not been ambulating yet. She is working on standing tolerance and she has begun to transfer with stand pivot technique. Lower body dressing requires moderate to maximal assist, upper body is done with supervision. Continue physical therapy and occupational therapy. * Status post total knee arthroplasty with revision, gastrocnemius flap, last surgery on 03/17/2017: Continue wound dressing changes MWF and pain management , increase mobilization. Cultures did not grow any isolate. Follow up with Orthopedic surgery. Oxycodone p.r.n. * Lower extremity swelling: D-dimer slightly positive but not the unexpected after surgeries. (Outpatient diuretics were furosemide 40 mg BID, spironolactone, and PRN metolazone). Diuresed well with change form furosemide 2 bumetanide with addition of metolazone on 04/26/2017 and 04/27/2017. BMP, LFTs normal 04/27/2017. Initiate Brayan wrap to the left lower extremity. Add spironolactone 12.5 mg q.day starting a 05/01/2017; discontinue potassium supplement. Recheck labs 05/04/2017. * Hypokalemia: Repleted on labs 04/24/2017 and 04/27/2017. * Anemia: Worse 04/24/2017. Improving 04/27/2017. MCV is high. B12 normal on labs 04/24/2017. Reticulocyte count is appropriately elevated. Iron panel with low TIBC and normal iron is more consistent with anemia of chronic disease than of iron deficiency anemia. * Severe protein calorie malnutrition: Dietary consult , protein, albumin, and prealbumin are all low on admission. Improving 04/27/2017. * History of VRE. 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 * Hematochezia with positive stool Hemoccult. Blood counts improved however and vitals are stable. Held leak was x1 dose restarting this evening 2016. Follow up after discharge with Gastroenterology regarding source of bleeding and with Cardiology regarding continued need for anticoagulation for paroxysmal AFib. Continue pantoprazole. Stable/ resolved: * Pneumoperitoneum: Status post 14 days of ceftriaxone in acute care hospital, following up with Gastroenterology as an outpatient. They have been monitoring status post a unchanged repeat abdominal CT on 03/30/2017. plan to monitor clinically * Paroxysmal atrial fibrillation/ atrial flutter : On anticoagulation, apixaban , amiodarone has been stopped. Notes from hospital report ejection fraction of 65%. Following up with Cardiology as an outpatient. Apparently, her previous episodes of atrial fibrillation and atrial flutter were in the context of prior surgery, and she was asymptomatic. * History of loose stools: P.r.n. Lomotil can be used if needed, not ordered at this time * History of prolonged QTC: Still present on EKG 04/27/2017. Caution re medications. * Encephalopathy. May have been the aseptic meningitis with high CSF protein or medication effect related to amiodarone or cephalosporin. Resolved, with normal screening per speech therapy. * Code Status: full code, discussed with patient on admission * Proph: currently on apixaban for paroxysmal atrial fibrillation and atrial flutter. prophylactic bowel medications p.r.n.. Attended staffing, 15 minutes. Discussed with case management, nursing, dietitian, PT, OT. She lives in a single-level home with 1 step to enter. She lives with son and [id number] as well as elderly mother. Unclear how much assistance is available at home. Expect more rapid improvement when she is able to ambulate. Discharge set for 05/19/2017. Follow-up and continuity of care: The patient will need follow up with her primary care physician (Flavia Watson), Orthopedic surgery, cardiology, gastroenterology. 05/01/17 12:40 Subjective: Legs feel less heavy and she is getting better able to get the back into bed herself. Reports she was able to do a stand pivot transfer today and will no longer be using the Kelly lift. Objective: Vital Signs Temp Pulse Resp BP Pulse Ox 36.6 C 67 14 110/69 95 05/01/17 07:46 05/01/17 07:46 05/01/17 07:46 05/01/17 07:46 05/01/17 07:46 Laboratory Results 04/27/17 09:10 04/29/17 11:30 04/30/17 05/01/17 05/02/17 05:59 05:59 05:59 Intake Total 978 980 460 Output Total 300 Balance 978 980 160 - Time Spent With Patient Time Spent With Patient: Greater than 35 minutes floor time today, including more than 50% of time in coordination of care during staffing meeting, and counseling patient. Physical Exam - Physical Exam General Appearance: WD/WN, alert, no apparent distress Respiratory: normal breath sounds, No crackles, No rhonchi, No wheezing Cardiac/Chest: regular rate, rhythm, edema (3+ B LE) Skin: normal color, warm/dry Neuro/Psych: no motor/sensory deficits, alert, normal mood/affect, oriented x 3 ICD10 Worksheet Patient Problems: Problems Problem Status Onset Morbid obesity Acute S/P total knee arthroplasty Acute Swelling of lower extremity Acute VRE (vancomycin-resistant Enterococci) Acute ~04/09/17
[2017-05-01] MEDS: SPIRONOLACTONE 25 MG TAB PO SCH (13:34)
[2017-05-01] MEDS ORDERED: QUEtiapine FUMARATE 25 MG TAB PO PRN (14:02)
[2017-05-02] MEDS: ACETAMINOPHEN 325 MG TAB PO PRN ×4 (02:04→22:14)
[2017-05-02] MEDS: oxyCODONE IR 5 MG TAB PO PRN ×2 (08:39→22:14)
[2017-05-02] MEDS: APIXABAN 5 MG TAB PO SCH ×2 (08:54→21:25)
[2017-05-02] MEDS: THIAMINE HCL 100 MG TAB PO SCH (08:54)
[2017-05-02] MEDS: BUMETANIDE 1 MG TAB PO SCH (08:54)
[2017-05-02] MEDS: PANTOPRAZOLE SODIUM 40 MG TAB PO SCH (08:54)
[2017-05-02] MEDS: MULTIVITAMINS 1 EACH TAB PO SCH (08:54)
[2017-05-02] MEDS: SPIRONOLACTONE 25 MG TAB PO SCH (08:55)
--- NOTE | 2017-05-02 13:16 | SOAPPROG ---
SOAP Progress Note Assessment/Plan: Assessment: 62-year-old morbidly obese woman with a past medical history of bilateral knee arthroplasty, status post revision of her left total knee arthroplasty on 2016 with subsequent wound dehiscence and infection and a prolonged hospital course with repeat surgeries and gastrocnemius flap for closure, and severe impairments in mobility and self-care. Her course has also been complicated by severe encephalopathy of unclear etiology with unclear cognitive deficits. * Impairments in mobility and self-care status post complicated total knee arthroplasty revision: Initial functional independence measure 56 on 04/24/2017 ; improved to 63 as of 05/01/2017. Requires minimal assist with bed mobility sometimes needs maximal assistance of 2 to get her legs back into bed. She has not been ambulating yet. She is working on standing tolerance and she has begun to transfer with stand pivot technique. Lower body dressing requires moderate to maximal assist, upper body is done with supervision. Continue physical therapy and occupational therapy. * Status post total knee arthroplasty with revision, gastrocnemius flap, last surgery on 03/17/2017: Continue wound dressing changes MWF and pain management , increase mobilization. Cultures did not grow any isolate. Follow up with Orthopedic surgery. Oxycodone p.r.n. * Lower extremity swelling: D-dimer slightly positive but not the unexpected after surgeries. (Outpatient diuretics were furosemide 40 mg BID, spironolactone, and PRN metolazone). Diuresed well with change form furosemide 2 bumetanide with addition of metolazone on 04/26/2017 and 04/27/2017. BMP, LFTs normal 04/27/2017. Initiate Brayan wrap to the left lower extremity. Add spironolactone 12.5 mg q.day starting a 05/01/2017; discontinue potassium supplement. Recheck labs 05/04/2017. * Hypokalemia: Repleted on labs 04/24/2017 and 04/27/2017. * Anemia: Worse 04/24/2017. Improving 04/27/2017. MCV is high. B12 normal on labs 04/24/2017. Reticulocyte count is appropriately elevated. Iron panel with low TIBC and normal iron is more consistent with anemia of chronic disease than of iron deficiency anemia. * Severe protein calorie malnutrition: Dietary consult , protein, albumin, and prealbumin are all low on admission. Improving 04/27/2017. * History of VRE. 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 * Hematochezia with positive stool Hemoccult. Blood counts improved however and vitals are stable. Held leak was x1 dose restarting this evening 2016. Follow up after discharge with Gastroenterology regarding source of bleeding and with Cardiology regarding continued need for anticoagulation for paroxysmal AFib. Continue pantoprazole. Stable/ resolved: * Pneumoperitoneum: Status post 14 days of ceftriaxone in acute care hospital, following up with Gastroenterology as an outpatient. They have been monitoring status post a unchanged repeat abdominal CT on 03/30/2017. plan to monitor clinically * Paroxysmal atrial fibrillation/ atrial flutter : On anticoagulation, apixaban , amiodarone has been stopped. Notes from hospital report ejection fraction of 65%. Following up with Cardiology as an outpatient. Apparently, her previous episodes of atrial fibrillation and atrial flutter were in the context of prior surgery, and she was asymptomatic. * History of loose stools: P.r.n. Lomotil can be used if needed, not ordered at this time * History of prolonged QTC: Still present on EKG 04/27/2017. Caution re medications. * Encephalopathy. May have been the aseptic meningitis with high CSF protein or medication effect related to amiodarone or cephalosporin. Resolved, with normal screening per speech therapy. * Code Status: full code, discussed with patient on admission * Proph: currently on apixaban for paroxysmal atrial fibrillation and atrial flutter. prophylactic bowel medications p.r.n.. She lives in a single-level home with 1 step to enter. She lives with son and [id number] as well as elderly mother. Unclear how much assistance is available at home. Expect more rapid improvement when she is able to ambulate. Discharge set for 05/19/2017. Follow-up and continuity of care: The patient will need follow up with her primary care physician (Flavia Watson), Orthopedic surgery, cardiology, gastroenterology. 05/01/17 12:40 05/02/17 13:15 Subjective: Reports poor sleep overnight. It became too late for her to take the p.r.n. quetiapine. She had discomfort from the Brayan wrap on her left lower leg. Otherwise without complaints. No lightheadedness with standing, no cough, dyspnea, fevers, chills. Objective: Vital Signs Temp Pulse Resp BP Pulse Ox 36.8 C 78 16 99/68 L 97 05/02/17 08:00 05/02/17 08:00 05/02/17 08:00 05/02/17 08:00 05/02/17 08:00 Laboratory Results 04/27/17 09:10 04/29/17 11:30 05/01/17 05/02/17 05/03/17 05:59 05:59 05:59 Intake Total 980 1460 480 Output Total 1450 400 Balance 980 10 80 Physical Exam - Physical Exam General Appearance: WD/WN, alert, no apparent distress Respiratory: No respiratory distress, No accessory muscle use Skin: normal color, warm/dry Neuro/Psych: alert, normal mood/affect, oriented x 3 ICD10 Worksheet Patient Problems: Problems Problem Status Onset Morbid obesity Acute S/P total knee arthroplasty Acute Swelling of lower extremity Acute VRE (vancomycin-resistant Enterococci) Acute ~04/09/17
[2017-05-02] MEDS: QUEtiapine FUMARATE 25 MG TAB PO SCH (21:26)
[2017-05-03] MEDS: ACETAMINOPHEN 325 MG TAB PO PRN ×3 (08:21→22:19)
[2017-05-03] MEDS: MULTIVITAMINS 1 EACH TAB PO SCH (08:22)
[2017-05-03] MEDS: THIAMINE HCL 100 MG TAB PO SCH (08:22)
[2017-05-03] MEDS: BUMETANIDE 1 MG TAB PO SCH (08:22)
[2017-05-03] MEDS: PANTOPRAZOLE SODIUM 40 MG TAB PO SCH (08:22)
[2017-05-03] MEDS: SPIRONOLACTONE 25 MG TAB PO SCH (08:22)
[2017-05-03] MEDS: APIXABAN 5 MG TAB PO SCH ×2 (08:22→21:36)
[2017-05-03] MEDS: oxyCODONE IR 5 MG TAB PO PRN ×2 (08:22→22:20)
[2017-05-03] MEDS ORDERED: SPIRONOLACTONE 25 MG TAB PO ONE (11:01)
--- NOTE | 2017-05-03 11:07 | SOAPPROG ---
SOAP Progress Note Assessment/Plan: Assessment: 62-year-old morbidly obese woman with a past medical history of bilateral knee arthroplasty, status post revision of her left total knee arthroplasty on 2016 with subsequent wound dehiscence and infection and a prolonged hospital course with repeat surgeries and gastrocnemius flap for closure, and severe impairments in mobility and self-care. Her course has also been complicated by severe encephalopathy of unclear etiology with unclear cognitive deficits. * Impairments in mobility and self-care status post complicated total knee arthroplasty revision: Initial functional independence measure 56 on 04/24/2017 ; improved to 63 as of 05/01/2017. Requires minimal assist with bed mobility sometimes needs maximal assistance of 2 to get her legs back into bed. She ambulates with front walker, much improved since 05/01/2017.. Transfers with stand pivot technique. Lower body dressing requires moderate to maximal assist , upper body is done with supervision. Continue physical therapy and occupational therapy. * Status post total knee arthroplasty with revision, gastrocnemius flap, last surgery on 03/17/2017: Continue wound dressing changes MWF and pain management , increase mobilization. Cultures did not grow any isolate. Follow up with Orthopedic surgery. Oxycodone p.r.n. * Lower extremity swelling: D-dimer slightly positive but not the unexpected after surgeries. (Outpatient diuretics were furosemide 40 mg BID, spironolactone, and PRN metolazone). Diuresed well with change from furosemide to bumetanide with addition of metolazone on 04/26/2017 and 04/27/2017. BMP, LFTs normal 04/27/2017. Initiate Brayan wrap to the left lower extremity. Add spironolactone 12.5 mg q.day starting a 05/01/2017; discontinue potassium supplement. Recheck labs 05/04/2017. * Hypokalemia: Repleted on labs 04/24/2017 and 04/27/2017. * Anemia: Worse 04/24/2017. Improving 04/27/2017. MCV is high. B12 normal on labs 04/24/2017. Reticulocyte count is appropriately elevated. Iron panel with low TIBC and normal iron is more consistent with anemia of chronic disease than of iron deficiency anemia. * Severe protein calorie malnutrition: Dietary consult , protein, albumin, and prealbumin are all low on admission. Improving 04/27/2017. * History of VRE. 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 * Hematochezia with positive stool Hemoccult. Blood counts improved however and vitals are stable. Held leak was x1 dose restarting this evening 2016. Follow up after discharge with Gastroenterology regarding source of bleeding and with Cardiology regarding continued need for anticoagulation for paroxysmal AFib. Continue pantoprazole. Stable/ resolved: * Pneumoperitoneum: Status post 14 days of ceftriaxone in acute care hospital, following up with Gastroenterology as an outpatient. They have been monitoring status post a unchanged repeat abdominal CT on 03/30/2017. plan to monitor clinically * Paroxysmal atrial fibrillation/ atrial flutter : On anticoagulation, apixaban , amiodarone has been stopped. Notes from hospital report ejection fraction of 65%. Following up with Cardiology as an outpatient. Apparently, her previous episodes of atrial fibrillation and atrial flutter were in the context of prior surgery, and she was asymptomatic. * History of loose stools: P.r.n. Lomotil can be used if needed, not ordered at this time * History of prolonged QTC: Still present on EKG 04/27/2017. Caution re medications. * Encephalopathy. May have been the aseptic meningitis with high CSF protein or medication effect related to amiodarone or cephalosporin. Resolved, with normal screening per speech therapy. * Code Status: full code, discussed with patient on admission * Proph: currently on apixaban for paroxysmal atrial fibrillation and atrial flutter. prophylactic bowel medications p.r.n.. She lives in a single-level home with 1 step to enter. She lives with son and [id number] as well as elderly mother. Unclear how much assistance is available at home. Expect more rapid improvement when she is able to ambulate. Discharge set for 05/19/2017. Follow-up and continuity of care: The patient will need follow up with her primary care physician (Flavia Watson), Orthopedic surgery, cardiology, gastroenterology. 05/03/17 11:04 Subjective: No complaints. Slept well. She says she had Brayan wrap on her right lower extremity all day yesterday and then removed it at bedtime for sleep. Objective: Vital Signs Temp Pulse Resp BP Pulse Ox 36.4 C 97 15 116/81 H 95 05/03/17 07:25 05/03/17 08:55 05/03/17 07:25 05/03/17 08:55 05/03/17 08:55 Laboratory Results 04/27/17 09:10 04/29/17 11:30 05/02/17 05/03/17 05/04/17 05:59 05:59 05:59 Intake Total 1460 730 236 Output Total 1450 1550 400 Balance 10 -093 -990 Physical Exam - Physical Exam General Appearance: WD/WN, alert, no apparent distress, obese Respiratory: normal breath sounds, No crackles, No rhonchi, No wheezing Cardiac/Chest: regular rate, rhythm, edema (3 - 4+ pretibial edema B LE.) ICD10 Worksheet Patient Problems: Problems Problem Status Onset Morbid obesity Acute S/P total knee arthroplasty Acute Swelling of lower extremity Acute VRE (vancomycin-resistant Enterococci) Acute ~04/09/17
[2017-05-03] MEDS: QUEtiapine FUMARATE 25 MG TAB PO SCH (21:36)
[2017-05-04] MEDS: SPIRONOLACTONE 25 MG TAB PO SCH (08:15)
[2017-05-04] MEDS: THIAMINE HCL 100 MG TAB PO SCH (08:15)
[2017-05-04] MEDS: PANTOPRAZOLE SODIUM 40 MG TAB PO SCH (08:15)
[2017-05-04] MEDS: APIXABAN 5 MG TAB PO SCH ×2 (08:15→21:54)
[2017-05-04] MEDS: BUMETANIDE 1 MG TAB PO SCH (08:15)
[2017-05-04] MEDS: MULTIVITAMINS 1 EACH TAB PO SCH (08:15)
[2017-05-04 08:36] LABS: ANION GAP 10 mEq/L (8-16); CARBON DIOXIDE 26 mEq/l (22-31); CHLORIDE 102 mEq/L (97-110); CREATININE 0.9 mg/dL (0.6-1.0); GLOMERULAR FILTRATION RATE > 60; GLUCOSE 75 mg/dL (70-100); POTASSIUM 3.2 mEq/L (3.5-5.2); SODIUM 138 mEq/L (134-144)
[2017-05-04] MEDS ORDERED: SPIRONOLACTONE 25 MG TAB PO SCH (09:00)
[2017-05-04] MEDS ORDERED: POTASSIUM CL 20 MEQ TAB PO ONE ×2 (09:43→18:00)
--- NOTE | 2017-05-04 09:53 | SOAPPROG ---
SOAP Progress Note Assessment/Plan: Assessment: 62-year-old morbidly obese woman with a past medical history of bilateral knee arthroplasty, status post revision of her left total knee arthroplasty on 2016 with subsequent wound dehiscence and infection and a prolonged hospital course with repeat surgeries and gastrocnemius flap for closure, and severe impairments in mobility and self-care. Her course has also been complicated by severe encephalopathy of unclear etiology with unclear cognitive deficits. Date: Patient has low calcium, corrected to approximately 8. Looks like it has been dropping over previous days. For tomorrow will order a Chem 7, calcium, ionized calcium, albumin, parathyroid hormone, Mag, phos. Potassium also low today at 3.2, looks like it has been dropping despite being on spironolactone. Plan to give 20 mEq of potassium x2 today. Will check again tomorrow. Additionally, her leg does appear somewhat red on the right side, does not have significant warmth or swelling, no systemic illness such as fevers, chills, sweats. Low suspicion for acute cellulitis at this point, we will continue to monitor closely. Notably, her weight is down 30 lb since admission, 103.7 kg today, down from 105.6 kg yesterday. Creatinine has been stable at 1. Monitor closely. A total of 35 minutes was spent on the floor in the care of the patient, the majority of which was spent counseling and coordination of care regarding her rehabilitation progress which has been good, and the strategy for diuresis. Also discussed her history of amiodarone use. She does note periodic episodes of irregular heartbeat, we will want to make sure she has good follow-up with cardiology. * Impairments in mobility and self-care status post complicated total knee arthroplasty revision: Initial functional independence measure 56 on 04/24/2017 ; improved to 63 as of 05/01/2017. Requires minimal assist with bed mobility sometimes needs maximal assistance of 2 to get her legs back into bed. She ambulates with front walker, much improved since 05/01/2017.. Transfers with stand pivot technique. Lower body dressing requires moderate to maximal assist , upper body is done with supervision. Continue physical therapy and occupational therapy. * Status post total knee arthroplasty with revision, gastrocnemius flap, last surgery on 03/17/2017: Continue wound dressing changes MWF and pain management , increase mobilization. Cultures did not grow any isolate. Follow up with Orthopedic surgery. Oxycodone p.r.n. * Lower extremity swelling: D-dimer slightly positive but not the unexpected after surgeries. (Outpatient diuretics were furosemide 40 mg BID, spironolactone, and PRN metolazone). Diuresed well with change from furosemide to bumetanide with addition of metolazone on 04/26/2017 and 04/27/2017. BMP, LFTs normal 04/27/2017. Initiate Brayan wrap to the left lower extremity. Add spironolactone 12.5 mg q.day starting a 05/01/2017; discontinue potassium supplement. 05/04/2017 she continues to diurese well and creatinine is stable. * Hypokalemia: Repleted on labs 04/24/2017 and 04/27/2017. Repleted again on despite being on spironolactone. Monitor closely, consider additional standing dose. * Anemia: Worse 04/24/2017. Improving 04/27/2017. MCV is high. B12 normal on labs 04/24/2017. Reticulocyte count is appropriately elevated. Iron panel with low TIBC and normal iron is more consistent with anemia of chronic disease than of iron deficiency anemia. * Severe protein calorie malnutrition: Dietary consult , protein, albumin, and prealbumin are all low on admission. Improving 04/27/2017. * History of VRE. 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 * Hematochezia with positive stool Hemoccult. Blood counts improved however and vitals are stable. Held leak was x1 dose restarting this evening 2016. Follow up after discharge with Gastroenterology regarding source of bleeding and with Cardiology regarding continued need for anticoagulation for paroxysmal AFib. Continue pantoprazole. * Right leg discoloration: She may have some pressure area on her right lower leg, some surrounding redness, no significant warmth, mild redness. Low suspicion for acute cellulitis right now, we will continue to monitor closely. Stable/ resolved: * Pneumoperitoneum: Status post 14 days of ceftriaxone in [facility], following up with Gastroenterology as an outpatient. They have been monitoring status post a unchanged repeat abdominal CT on 03/30/2017. plan to monitor clinically * Paroxysmal atrial fibrillation/ atrial flutter : On anticoagulation, apixaban , amiodarone has been stopped. Notes from hospital report ejection fraction of 65%. Following up with Cardiology as an outpatient. Apparently, her previous episodes of atrial fibrillation and atrial flutter were in the context of prior surgery, and she was asymptomatic. * History of loose stools: P.r.n. Lomotil can be used if needed, not ordered at this time * History of prolonged QTC: Still present on EKG 04/27/2017. Caution re medications. * Encephalopathy. May have been the aseptic meningitis with high CSF protein or medication effect related to amiodarone or cephalosporin. Resolved, with normal screening per speech therapy. * Code Status: full code, discussed with patient on admission * Proph: currently on apixaban for paroxysmal atrial fibrillation and atrial flutter. prophylactic bowel medications p.r.n.. She lives in a single-level home with 1 step to enter. She lives with son and [id number] as well as elderly mother. Unclear how much assistance is available at home. Expect more rapid improvement when she is able to ambulate. Discharge set for 05/19/2017. Follow-up and continuity of care: The patient will need follow up with her primary care physician (Flavia Watson), Orthopedic surgery, cardiology, gastroenterology. 04/22/17 09:20 04/23/17 10:20 04/28/17 09:12 05/04/17 09:48 Subjective: Chief complaint: Leg swelling, diuresis No acute events overnight. Patient endorsed that she continues to have leg swelling but it seems to be better. She is working well with therapies. Denies any shortness of breath or chest pain, no new numbness, tingling, or weakness. On the right side of her leg she notes that she has some area that is not particularly tender, noted by nursing. She denies any fevers, chills, or night sweats. No increasing pain, she does not appreciate extra warmth. She notes that she has lost a considerable amount of water weight. Objective: Vital Signs Temp Pulse Resp BP Pulse Ox 36.7 C 87 16 107/78 93 05/04/17 07:30 05/04/17 07:30 05/04/17 07:30 05/04/17 07:30 05/04/17 07:30 Laboratory Results 04/27/17 09:10 05/04/17 06:00 05/03/17 05/04/17 05/05/17 05:59 05:59 05:59 Intake Total 730 736 940 Output Total 1550 700 300 Balance -820 36 640 Physical Exam - Physical Exam General Appearance: WD/WN, alert, no apparent distress EENT: No scleral icterus (R), No scleral icterus (L) Respiratory: No respiratory distress, No accessory muscle use Cardiac/Chest: normal peripheral pulses, regular rate, rhythm, edema (2+ bilateral lower extremities) Skin: normal color, warm/dry, other (Right lower leg has some areas of patchy redness, no clear skin breaks, no extra warmth, no extra pain, no discharge), No cyanosis Extremities: other (See skin exam) Neuro/Psych: alert, normal mood/affect, oriented x 3 ICD10 Worksheet Patient Problems: Problems Problem Status Onset Morbid obesity Acute S/P total knee arthroplasty Acute Swelling of lower extremity Acute VRE (vancomycin-resistant Enterococci) Acute ~04/09/17 - ICD10 Problem Qualifiers (1) S/P total knee arthroplasty Qualifiers: Laterality: bilateral Qualified Code(s): Z96.653 - Presence of artificial knee joint, bilateral (2) Swelling of lower extremity (3) Morbid obesity
[2017-05-04] MEDS: ACETAMINOPHEN 325 MG TAB PO PRN ×3 (10:47→21:55)
[2017-05-04] MEDS: oxyCODONE IR 5 MG TAB PO PRN ×2 (10:48→21:54)
[2017-05-04] MEDS: QUEtiapine FUMARATE 25 MG TAB PO SCH (21:55)
[2017-05-05] MEDS: BUMETANIDE 1 MG TAB PO SCH (07:55)
[2017-05-05] MEDS: MULTIVITAMINS 1 EACH TAB PO SCH (07:55)
[2017-05-05] MEDS: APIXABAN 5 MG TAB PO SCH ×2 (07:55→21:53)
[2017-05-05] MEDS: THIAMINE HCL 100 MG TAB PO SCH (07:55)
[2017-05-05] MEDS: PANTOPRAZOLE SODIUM 40 MG TAB PO SCH (07:55)
[2017-05-05] MEDS: SPIRONOLACTONE 25 MG TAB PO SCH (07:56)
[2017-05-05] MEDS: ACETAMINOPHEN 325 MG TAB PO PRN ×2 (09:34→21:59)
[2017-05-05] MEDS: oxyCODONE IR 5 MG TAB PO PRN ×2 (09:35→21:53)
--- NOTE | 2017-05-05 12:25 | SOAPPROG ---
SOAP Progress Note Assessment/Plan: Assessment: 62-year-old morbidly obese woman with a past medical history of bilateral knee arthroplasty, status post revision of her left total knee arthroplasty on 2016 with subsequent wound dehiscence and infection and a prolonged hospital course with repeat surgeries and gastrocnemius flap for closure, and severe impairments in mobility and self-care. Hospital course was complicated by severe encephalopathy of unclear etiology with unclear cognitive deficits. * Impairments in mobility and self-care status post complicated total knee arthroplasty revision: Initial functional independence measure 56 on 04/24/2017 ; improved to 68 as of 05/01/2017, and to 86 as of 05/05/2017. Requires minimal assistance for transfers, ambulated 90 feet with a front wheeled walker and contact guard assist. Does grooming and hygiene standing with standby assistance, upper body dressing with setup, lower body dressing with standby assist but unable to apply her own Brayan wraps. Toileting required standby assist , toilet transfer required standby assist. Shower transfer was done with standby assist using a front wheeled walker and grab bars. Bathing required minimal assist. Continue physical therapy and occupational therapy. * Status post total knee arthroplasty with revision, gastrocnemius flap, last surgery on 03/17/2017: Continue wound dressing changes MWF and pain management , increase mobilization. Cultures did not grow any isolate. Follow up with Orthopedic surgery. Oxycodone p.r.n. * Lower extremity swelling: D-dimer slightly positive but not the unexpected after surgeries. (Outpatient diuretics were furosemide 40 mg BID, spironolactone, and PRN metolazone). Diuresed well with change from furosemide to bumetanide with addition of metolazone on 04/26/2017 and 04/27/2017. BMP, LFTs normal 04/27/2017. Initiate Brayan wrap to the left lower extremity. Added spironolactone 12.5 mg q.day starting a 05/01/2017; discontinued potassium supplement. Labs 05/04/2017 with potassium low at 3.2 and hypocalcemia. Follow- up labs 05/05/2017 with low Mg. Replete PO. Repeat labs 05/07/17. Reduce bumetanide to 0.5 mg QD. * Hypokalemia: Repleted on labs 04/24/2017 and 04/27/2017. * Anemia: Worse 04/24/2017. Improving 04/27/2017. MCV is high. B12 normal on labs 04/24/2017. Reticulocyte count is appropriately elevated. Iron panel with low TIBC and normal iron is more consistent with anemia of chronic disease than of iron deficiency anemia. * Severe protein calorie malnutrition: Dietary consult , protein, albumin, and prealbumin are all low on admission. Improving 04/27/2017. Stable/ resolved: * Hematochezia with positive stool Hemoccult. Blood counts improved however and vitals are stable. Held apixiban x1 dose, restarted evening 04/27/2017. Follow up after discharge with Gastroenterology regarding source of bleeding and with Cardiology regarding continued need for anticoagulation for paroxysmal AFib. Continue pantoprazole. * History of VRE. 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 * Pneumoperitoneum: Status post 14 days of ceftriaxone in acute care hospital, following up with Gastroenterology as an outpatient. They have been monitoring status post a unchanged repeat abdominal CT on 03/30/2017. plan to monitor clinically * Paroxysmal atrial fibrillation/ atrial flutter : On anticoagulation, apixaban , amiodarone has been stopped. Notes from hospital report ejection fraction of 65%. Following up with Cardiology as an outpatient. Apparently, her previous episodes of atrial fibrillation and atrial flutter were in the context of prior surgery, and she was asymptomatic. * History of loose stools: P.r.n. Lomotil can be used if needed, not ordered at this time * History of prolonged QTC: Still present on EKG 04/27/2017. Caution re medications. * Encephalopathy. May have been the aseptic meningitis with high CSF protein or medication effect related to amiodarone or cephalosporin. Resolved, with normal screening per speech therapy. * Code Status: full code, discussed with patient on admission * Proph: currently on apixaban for paroxysmal atrial fibrillation and atrial flutter. prophylactic bowel medications p.r.n.. Attendant staffing, 15 minutes. Discussed with case management, PT, OT. She lives in a single-level home with 1 step to enter. She lives with son and [id number] as well as elderly mother. Unclear how much assistance is available at home. Making good progress. Continue discharge date of 2016. Follow-up and continuity of care: The patient will need follow up with her primary care physician (Flavia Watson), Orthopedic surgery, cardiology, gastroenterology. 05/05/17 12:26 05/05/17 16:56 Subjective: No complaints. She thinks her leg swelling is better than any time since surgery. Nurse notes discoloration to right lower leg. Objective: Vital Signs Temp Pulse Resp BP Pulse Ox 36.6 C 72 16 111/72 93 05/05/17 06:22 05/05/17 06:22 05/05/17 06:22 05/05/17 06:22 05/05/17 06:22 Laboratory Results 04/27/17 09:10 05/04/17 06:00 05/04/17 05/05/17 05/06/17 05:59 05:59 05:59 Intake Total 736 1840 980 Output Total 700 300 Balance 36 1540 980 - Time Spent With Patient Time Spent With Patient: Greater than 35 minutes floor time today, including more than 50% of time in coordination of care during staffing meeting, and counseling patient. Physical Exam - Physical Exam General Appearance: WD/WN, alert, no apparent distress Respiratory: normal breath sounds, No crackles, No rhonchi, No wheezing Cardiac/Chest: regular rate, rhythm, edema (2+ B LE) Skin: normal color, warm/dry, other (Ecchymoses R lateral and posterior lower leg) Neuro/Psych: no motor/sensory deficits, alert, normal mood/affect, oriented x 3 ICD10 Worksheet Patient Problems: Problems Problem Status Onset Morbid obesity Acute S/P total knee arthroplasty Acute Swelling of lower extremity Acute VRE (vancomycin-resistant Enterococci) Acute ~04/09/17
[2017-05-05 12:39] LABS: IONIZED CALCIUM 0.93 MMOL/L (1.19-1.37)
[2017-05-05 12:49] LABS: ALBUMIN 3.3 g/dL (3.5-5.0); ANION GAP 13 mEq/L (8-16); CALCIUM 7.8 mg/dL (8.5-10.4); CARBON DIOXIDE 24 mEq/l (22-31); CHLORIDE 99 mEq/L (97-110); GLOMERULAR FILTRATION RATE 56; GLUCOSE 91 mg/dL (70-100); POTASSIUM 4.1 mEq/L (3.5-5.2); SODIUM 136 mEq/L (134-144)
[2017-05-05 13:00] LABS: PTH INTACT NO MINERALS 77.7 pg/ml (10.8-79.4)
[2017-05-05] MEDS: MAGNESIUM OXIDE 400 MG TAB PO SCH (13:41)
[2017-05-05 17:17] LABS: MAGNESIUM 0.8 mg/dL (1.6-2.3)
[2017-05-05] MEDS: QUEtiapine FUMARATE 25 MG TAB PO SCH (21:53)
[2017-05-06] MEDS: oxyCODONE IR 5 MG TAB PO PRN ×4 (03:34→22:32)
[2017-05-06] MEDS: ACETAMINOPHEN 325 MG TAB PO PRN ×4 (03:34→22:31)
[2017-05-06] MEDS: APIXABAN 5 MG TAB PO SCH ×2 (08:36→21:23)
[2017-05-06] MEDS: BUMETANIDE 1 MG TAB PO SCH (08:36)
[2017-05-06] MEDS: THIAMINE HCL 100 MG TAB PO SCH (08:37)
[2017-05-06] MEDS: MULTIVITAMINS 1 EACH TAB PO SCH (08:37)
[2017-05-06] MEDS: MAGNESIUM OXIDE 400 MG TAB PO SCH (08:37)
[2017-05-06] MEDS: SPIRONOLACTONE 25 MG TAB PO SCH (08:37)
[2017-05-06] MEDS: PANTOPRAZOLE SODIUM 40 MG TAB PO SCH (08:37)
--- NOTE | 2017-05-06 11:39 | SOAPPROG ---
SOAP Progress Note Assessment/Plan: Assessment: 62-year-old morbidly obese woman with a past medical history of bilateral knee arthroplasty, status post revision of her left total knee arthroplasty on 2016 with subsequent wound dehiscence and infection and a prolonged hospital course with repeat surgeries and gastrocnemius flap for closure, and severe impairments in mobility and self-care. Hospital course was complicated by severe encephalopathy of unclear etiology with unclear cognitive deficits. * HYPO MAGNESIUM -CURRENT MAGNESIUM LEVEL IS 0.8., THEREFORE P.O. MAGNESIUM AT 400 MG DAILY WAS INITIATED LAST WEEK. DISCUSSED THIS WITH THE PHARMACIST WHO STATES THAT WHO RECOMMENDS 2 G MAGNESIUM IV RUN OVER 0.5 HOUR WHICH WILL BE MUCH MORE EFFECTIVE IN BRINGING UP HER MAGNESIUM AND LEVEL THEREFORE WILL WRITE ORDER FOR 2 G IV MAGNESIUM. PATIENT IS NOTED TO HAVE HISTORY OF A PROLONGED QT INTERVAL * Impairments in mobility and self-care status post complicated total knee arthroplasty revision: Initial functional independence measure 56 on 04/24/2017 ; improved to 68 as of 05/01/2017, and to 86 as of 05/05/2017. Requires minimal assistance for transfers, ambulated 90 feet with a front wheeled walker and contact guard assist. Does grooming and hygiene standing with standby assistance, upper body dressing with setup, lower body dressing with standby assist but unable to apply her own Brayan wraps. Toileting required standby assist , toilet transfer required standby assist. Shower transfer was done with standby assist using a front wheeled walker and grab bars. Bathing required minimal assist. Continue physical therapy and occupational therapy. * Status post total knee arthroplasty with revision, gastrocnemius flap, last surgery on 03/17/2017: Continue wound dressing changes MWF and pain management , increase mobilization. Cultures did not grow any isolate. Follow up with Orthopedic surgery. Oxycodone p.r.n. * Lower extremity swelling: D-dimer slightly positive but not the unexpected after surgeries. (Outpatient diuretics were furosemide 40 mg BID, spironolactone, and PRN metolazone). Diuresed well with change from furosemide to bumetanide with addition of metolazone on 04/26/2017 and 04/27/2017. BMP, LFTs normal 04/27/2017. Initiate Brayan wrap to the left lower extremity. Added spironolactone 12.5 mg q.day starting a 05/01/2017; discontinued potassium supplement. Labs 05/04/2017 with potassium low at 3.2 and hypocalcemia. Follow- up labs 05/05/2017 with low Mg. Replete PO. Repeat labs 05/07/17. Reduce bumetanide to 0.5 mg QD. * Hypokalemia: Repleted on labs 04/24/2017 and 04/27/2017. * Anemia: Worse 04/24/2017. Improving 04/27/2017. MCV is high. B12 normal on labs 04/24/2017. Reticulocyte count is appropriately elevated. Iron panel with low TIBC and normal iron is more consistent with anemia of chronic disease than of iron deficiency anemia. * Severe protein calorie malnutrition: Dietary consult , protein, albumin, and prealbumin are all low on admission. Improving 04/27/2017. Plan: 05/06/17 11:40 Subjective: SHE DOES NOT HAVE ANY SPECIFIC COMPLAINTS THIS MORNING. SHE DENIES SIGNIFICANT RIGHT OR LEFT KNEE PAIN. SHE REPORTS HER THERAPIES ARE GOING WELL. Objective: Vital Signs Temp Pulse Resp BP Pulse Ox 36.6 C 68 16 113/66 93 05/06/17 08:00 05/06/17 08:00 05/06/17 08:00 05/06/17 08:00 05/06/17 08:00 Laboratory Results 04/27/17 09:10 05/05/17 11:28 05/05/17 05/06/17 05/07/17 05:59 05:59 05:59 Intake Total 1840 1480 360 Output Total 300 Balance 1540 1480 360 Physical Exam - Physical Exam General Appearance: WD/WN, alert, no apparent distress Respiratory: lungs clear, normal breath sounds Cardiac/Chest: other (TRACE LOWER EXTREMITY EDEMA), No edema Abdomen: non-tender, soft Skin: other (LOWER LEGS BRAYAN WRAPPED) Extremities: normal range of motion, other (NORMAL AND PAIN-FREE RIGHT AND LEFT KNEE FLEXION AND EXTENSION.) Neuro/Psych: motor weakness (MILD LEFT TIBIALIS ANTERIOR WEAKNESS) ICD10 Worksheet Patient Problems: Problems Problem Status Onset Morbid obesity Acute S/P total knee arthroplasty Acute Swelling of lower extremity Acute VRE (vancomycin-resistant Enterococci) Acute ~04/09/17
[2017-05-06] MEDS ORDERED: MAGNESIUM SULF 2 GM/WATER 50 ML IV ONE (11:43)
[2017-05-06] MEDS ORDERED: ALTEPLASE 2 MG VIAL IVP PRN (16:49)
[2017-05-06] MEDS: QUEtiapine FUMARATE 25 MG TAB PO SCH (21:23)
[2017-05-07 08:08] LABS: ANION GAP 11 mEq/L (8-16); CALCIUM 7.5 mg/dL (8.5-10.4); CARBON DIOXIDE 25 mEq/l (22-31); CHLORIDE 102 mEq/L (97-110); GLOMERULAR FILTRATION RATE 56; GLUCOSE 78 mg/dL (70-100); POTASSIUM 3.6 mEq/L (3.5-5.2); SODIUM 138 mEq/L (134-144)
[2017-05-07] MEDS: ACETAMINOPHEN 325 MG TAB PO PRN ×3 (08:24→21:41)
[2017-05-07] MEDS: oxyCODONE IR 5 MG TAB PO PRN ×2 (08:25→21:42)
[2017-05-07] MEDS: APIXABAN 5 MG TAB PO SCH ×2 (08:25→21:43)
[2017-05-07] MEDS: BUMETANIDE 1 MG TAB PO SCH (08:26)
[2017-05-07] MEDS: SPIRONOLACTONE 25 MG TAB PO SCH (08:27)
[2017-05-07] MEDS: PANTOPRAZOLE SODIUM 40 MG TAB PO SCH (08:27)
[2017-05-07] MEDS: MULTIVITAMINS 1 EACH TAB PO SCH (08:27)
[2017-05-07] MEDS: THIAMINE HCL 100 MG TAB PO SCH (08:27)
[2017-05-07] MEDS ORDERED: PROTOCOL MAGNESIUM 1 DOSE IV PRN (11:28)
--- NOTE | 2017-05-07 11:47 | SOAPPROG ---
SOAP Progress Note Assessment/Plan: Assessment: 62-year-old morbidly obese woman with a past medical history of bilateral knee arthroplasty, status post revision of her left total knee arthroplasty on 2016 with subsequent wound dehiscence and infection and a prolonged hospital course with repeat surgeries and gastrocnemius flap for closure, and severe impairments in mobility and self-care. Hospital course was complicated by severe encephalopathy of unclear etiology with unclear cognitive deficits. * HYPO MAGNESIUM -CURRENT MAGNESIUM LEVEL IS 0.8. HISTORY OF A PROLONGED QT INTERVAL-ENTERED IN ERROR--PATIENT HAS H/O Atrial fibrillation/ atrial flutter. A MAGNESIUM LEVEL FROM YESTERDAY IS PENDING. ALSO DISCUSSED THIS WITH PHARMACIST WHO FEELS THAT PATIENT WOULD BENEFIT FROM BEING ON MAGNESIUM PROTOCOL SHE SUSPECTS GIVEN HER PREVIOUS LOW LEVEL OF 0.8 WILL MOST LIKELY NEED ADDITIONAL IV MAGNESIUM. * Impairments in mobility and self-care status post complicated total knee arthroplasty revision: Initial functional independence measure 56 on 04/24/2017 ; improved to 68 as of 05/01/2017, and to 86 as of 05/05/2017. Requires minimal assistance for transfers, ambulated 90 feet with a front wheeled walker and contact guard assist. Does grooming and hygiene standing with standby assistance, upper body dressing with setup, lower body dressing with standby assist but unable to apply her own Brayan wraps. Toileting required standby assist , toilet transfer required standby assist. Shower transfer was done with standby assist using a front wheeled walker and grab bars. Bathing required minimal assist. Continue physical therapy and occupational therapy. * Status post total knee arthroplasty with revision, gastrocnemius flap, last surgery on 03/17/2017: PHYSICAL THERAPY TO INSTRUCT PATIENT ON SEATED AND SUPINE LEG LIFTS WELL ISOMETRIC QUADRICEPS CONTRACTIONS WHICH SHE SHOULD PERFORM ON MULTIPLE REPETITIONS DAILY IN BETWEEN THERAPY SESSIONS. Continue wound dressing changes MWF and pain management, increase mobilization. Cultures did not grow any isolate. Follow up with Orthopedic surgery. Oxycodone p.r.n. * Lower extremity swelling: D-dimer slightly positive but not the unexpected after surgeries. (Outpatient diuretics were furosemide 40 mg BID, spironolactone, and PRN metolazone). Diuresed well with change from furosemide to bumetanide with addition of metolazone on 04/26/2017 and 04/27/2017. BMP, LFTs normal 04/27/2017. Initiate Brayan wrap to the left lower extremity. Added spironolactone 12.5 mg q.day starting a 05/01/2017; discontinued potassium supplement. Labs 05/04/2017 with potassium low at 3.2 and hypocalcemia. Follow- up labs 05/05/2017 with low Mg. Replete PO. Repeat labs 05/07/17. Reduce bumetanide to 0.5 mg QD. * Hypokalemia: POTASSIUM LEVEL FROM .6 * Anemia: Worse 04/24/2017. Improving 04/27/2017. MCV is high. B12 normal on labs 04/24/2017. Reticulocyte count is appropriately elevated. Iron panel with low TIBC and normal iron is more consistent with anemia of chronic disease than of iron deficiency anemia. * Severe protein calorie malnutrition: Dietary consult , protein, albumin, and prealbumin are all low on admission. Improving 04/27/2017. Plan: 05/06/17 11:40 05/07/17 11:47 AT Subjective: NO NEW COMPLAINTS PER PATIENT. SHE DENIES CHEST PAIN OR IRREGULAR HEART RATE. SHE WAS SENT OUT YESTERDAY FOR PICC LINE BECAUSE NO IV ACCESS COULD BE OBTAINED TO ADMINISTER MAGNESIUM WHICH WAS LOW AT 0.8. DISCUSSED WITH PHARMACY WHO DID NOT FEEL THAT P.O. MAGNESIUM WOULD ELEVATE MAGNESIUM LEVEL ADEQUATELY. Objective: Vital Signs Temp Pulse Resp BP Pulse Ox 36.6 C 70 16 118/67 94 05/07/17 06:40 05/07/17 06:40 05/07/17 06:40 05/07/17 06:40 05/07/17 06:40 Laboratory Results 04/27/17 09:10 05/07/17 06:00 05/06/17 05/07/17 05/08/17 05:59 05:59 05:59 Intake Total 1480 1210 Output Total 300 Balance 1480 1210 -300 Physical Exam - Physical Exam General Appearance: WD/WN, no apparent distress Neck: non-tender, full range of motion Respiratory: lungs clear Cardiac/Chest: edema ( LOWER LEGS EDEMATOUS) Abdomen: non-tender, soft Skin: other ( PICC SITE LINE WITH SOME BLEEDING, NO ERYTHEMA.) Neuro/Psych: no motor/sensory deficits, alert, motor weakness ( MILD WEAKNESS RIGHT AND LEFT QUADRICEPS) ICD10 Worksheet Patient Problems: Problems Problem Status Onset Morbid obesity Acute S/P total knee arthroplasty Acute Swelling of lower extremity Acute VRE (vancomycin-resistant Enterococci) Acute ~04/09/17
[2017-05-07 11:51] LABS: MAGNESIUM 1.4 mg/dL (1.6-2.3)
[2017-05-07] MEDS: MAGNESIUM OXIDE 400 MG TAB PO SCH (11:58)
[2017-05-07] MEDS ORDERED: MAGNESIUM SULF 2 GM/WATER 50 ML IV ONE (12:34)
[2017-05-07] MEDS: QUEtiapine FUMARATE 25 MG TAB PO SCH (21:43)
[2017-05-08 08:43] LABS: MAGNESIUM 1.7 mg/dL (1.6-2.3)
[2017-05-08] MEDS: ACETAMINOPHEN 325 MG TAB PO PRN ×3 (09:42→22:15)
[2017-05-08] MEDS: APIXABAN 5 MG TAB PO SCH ×2 (09:42→22:15)
[2017-05-08] MEDS: BUMETANIDE 1 MG TAB PO SCH (09:42)
[2017-05-08] MEDS: PANTOPRAZOLE SODIUM 40 MG TAB PO SCH (09:43)
[2017-05-08] MEDS: THIAMINE HCL 100 MG TAB PO SCH (09:43)
[2017-05-08] MEDS: MAGNESIUM OXIDE 400 MG TAB PO SCH (09:43)
[2017-05-08] MEDS: SPIRONOLACTONE 25 MG TAB PO SCH (09:43)
[2017-05-08] MEDS: MULTIVITAMINS 1 EACH TAB PO SCH (09:43)
[2017-05-08] MEDS: oxyCODONE IR 5 MG TAB PO PRN ×2 (09:44→22:14)
--- NOTE | 2017-05-08 11:49 | SOAPPROG ---
SOAP Progress Note Assessment/Plan: Assessment: 62-year-old morbidly obese woman with a past medical history of bilateral knee arthroplasty, status post revision of her left total knee arthroplasty on 2016 with subsequent wound dehiscence and infection and a prolonged hospital course with repeat surgeries and gastrocnemius flap for closure, and severe impairments in mobility and self-care. Hospital course was complicated by severe encephalopathy of unclear etiology with unclear cognitive deficits. * HYPO MAGNESIUM -CURRENT MAGNESIUM LEVEL IS 1.7, NOW ON MG PROTOCOL PER RX. CALCIUM LEVEL FROM 05/07 IS 7.5 THEREFORE BEGIN TUMS 2 PER DAY. * Impairments in mobility and self-care status post complicated total knee arthroplasty revision: Initial functional independence measure 56 on 04/24/2017 ; improved to 68 as of 05/01/2017, and to 86 as of 05/05/2017. Requires minimal assistance for transfers, ambulated 90 feet with a front wheeled walker and contact guard assist. Does grooming and hygiene standing with standby assistance, upper body dressing with setup, lower body dressing with standby assist but unable to apply her own Brayan wraps. Toileting required standby assist , toilet transfer required standby assist. Shower transfer was done with standby assist using a front wheeled walker and grab bars. Bathing required minimal assist. Continue physical therapy and occupational therapy. * Status post total knee arthroplasty with revision, gastrocnemius flap, last surgery on 03/17/2017: PHYSICAL THERAPY TO INSTRUCT PATIENT ON SEATED AND SUPINE LEG LIFTS WELL ISOMETRIC QUADRICEPS CONTRACTIONS WHICH SHE SHOULD PERFORM ON MULTIPLE REPETITIONS DAILY IN BETWEEN THERAPY SESSIONS. Continue wound dressing changes MWF and pain management, increase mobilization. Cultures did not grow any isolate. Follow up with Orthopedic surgery. Oxycodone p.r.n. * Lower extremity swelling: D-dimer slightly positive but not the unexpected after surgeries. (Outpatient diuretics were furosemide 40 mg BID, spironolactone, and PRN metolazone). Diuresed well with change from furosemide to bumetanide with addition of metolazone on 04/26/2017 and 04/27/2017. BMP, LFTs normal 04/27/2017. Initiate Brayan wrap to the left lower extremity. Added spironolactone 12.5 mg q.day starting a 05/01/2017; discontinued potassium supplement. Labs 05/04/2017 with potassium low at 3.2 and hypocalcemia. Follow- up labs 05/05/2017 with low Mg. Replete PO. Repeat labs 05/07/17. Reduce bumetanide to 0.5 mg QD. * Hypokalemia: POTASSIUM LEVEL FROM 05/07 3.6 * Anemia: Worse 04/24/2017. Improving 04/27/2017. MCV is high. B12 normal on labs 04/24/2017. Reticulocyte count is appropriately elevated. Iron panel with low TIBC and normal iron is more consistent with anemia of chronic disease than of iron deficiency anemia. * Severe protein calorie malnutrition: Dietary consult , protein, albumin, and prealbumin are all low on admission. Improving 04/27/2017. Plan: 05/06/17 11:40 05/07/17 11:47 AT 05/08/17 11:50 Subjective: NO COMPLIANTS THIS AM Objective: Vital Signs Temp Pulse Resp BP Pulse Ox 36.7 C 76 16 123/69 H 92 05/08/17 05:20 05/08/17 05:20 05/08/17 05:20 05/08/17 05:20 05/08/17 05:20 Laboratory Results 04/27/17 09:10 05/07/17 06:00 05/07/17 05/08/17 05/09/17 05:59 05:59 05:59 Intake Total 1210 650 Output Total 300 Balance 1210 350 Physical Exam - Physical Exam General Appearance: WD/WN, alert, no apparent distress Respiratory: lungs clear, normal breath sounds Abdomen: non-tender, soft Skin: warm/dry Neuro/Psych: motor weakness (MILD WEAKNESS R/L QUADS. NO FOOT DROP) ICD10 Worksheet Patient Problems: Problems Problem Status Onset Morbid obesity Acute S/P total knee arthroplasty Acute Swelling of lower extremity Acute VRE (vancomycin-resistant Enterococci) Acute ~04/09/17
[2017-05-08] MEDS: POLYETHYLENE GLYCOL 3350 17 GM PKT PO PRN (11:56)
[2017-05-08] MEDS: CALCIUM CARBONATE 500 MG CHEWABLE TAB PO SCH ×2 (17:00→22:15)
[2017-05-08] MEDS: QUEtiapine FUMARATE 25 MG TAB PO SCH (22:15)
[2017-05-09 07:46] LABS: MAGNESIUM 1.4 mg/dL (1.6-2.3)
[2017-05-09] MEDS: BUMETANIDE 1 MG TAB PO SCH (07:57)
[2017-05-09] MEDS: APIXABAN 5 MG TAB PO SCH ×2 (07:59→21:06)
[2017-05-09] MEDS: CALCIUM CARBONATE 500 MG CHEWABLE TAB PO SCH ×3 (07:59→21:06)
[2017-05-09] MEDS: MAGNESIUM OXIDE 400 MG TAB PO SCH (07:59)
[2017-05-09] MEDS: MULTIVITAMINS 1 EACH TAB PO SCH (08:01)
[2017-05-09] MEDS: PANTOPRAZOLE SODIUM 40 MG TAB PO SCH (08:01)
[2017-05-09] MEDS: SPIRONOLACTONE 25 MG TAB PO SCH (08:01)
[2017-05-09] MEDS: oxyCODONE IR 5 MG TAB PO PRN ×3 (08:03→21:05)
[2017-05-09] MEDS: THIAMINE HCL 100 MG TAB PO SCH (08:03)
[2017-05-09] MEDS: ACETAMINOPHEN 325 MG TAB PO PRN ×3 (08:04→21:05)
--- NOTE | 2017-05-09 08:39 | SOAPPROG ---
SOAP Progress Note Assessment/Plan: 62-year-old morbidly obese woman with a past medical history of bilateral knee arthroplasty, status post revision of her left total knee arthroplasty on 2016 with subsequent wound dehiscence and infection and a prolonged hospital course with repeat surgeries and gastrocnemius flap for closure, and severe impairments in mobility and self-care. Hospital course was complicated by severe encephalopathy of unclear etiology with unclear cognitive deficits. Today's update: Patient doing well in therapies, somewhat limited by low back pain that is helped with p.r.n. acetaminophen and oxycodone. Magnesium continues to be somewhat low, replenishing. Watching electrolytes closely as we back off of diuretics. She has greatly improved lower limb edema. Continue to monitor. weight is 101.9 kg down from 132.4 on admission. total of 25 minutes was spent on the floor in the care of the patient, the majority of which was spent in counseling and coordination of care regarding hand off and updated documentation for communication. Right leg is healing well. * Impairments in mobility and self-care status post complicated total knee arthroplasty revision: Initial functional independence measure 56 on 04/24/2017 ; improved to 68 as of 05/01/2017, and to 86 as of 05/05/2017. Requires minimal assistance for transfers, ambulated 90 feet with a front wheeled walker and contact guard assist. Does grooming and hygiene standing with standby assistance, upper body dressing with setup, lower body dressing with standby assist but unable to apply her own Brayan wraps. Toileting required standby assist , toilet transfer required standby assist. Shower transfer was done with standby assist using a front wheeled walker and grab bars. Bathing required minimal assist. Continue physical therapy and occupational therapy. * Status post total knee arthroplasty with revision, gastrocnemius flap, last surgery on 03/17/2017: Continue wound dressing changes MWF and pain management , increase mobilization. Cultures did not grow any isolate. Follow up with Orthopedic surgery. Oxycodone p.r.n. * Lower extremity swelling: D-dimer slightly positive but not the unexpected after surgeries, Doppler negative. Brayan wrap to bilateral lower limbs. Diuresed well with change from furosemide to bumetanide with addition of metolazone. Spironolactone was added, still had hypokalemia. Reduced bumetanide to 0.5 mg QD. * Hypokalemia: Continues to be somewhat low, monitor and replete p.o. may need supplementation on discharge * Hypocalcemia: continue calcium supplementation. Parathyroid hormone was on the high end of normal. * hypomagnesemia: May be contributing to persistent hypokalemia, continue magnesium supplementation. * Anemia: Worse 04/24/2017. Improving 04/27/2017. MCV is high. B12 normal on labs 04/24/2017. Reticulocyte count is appropriately elevated. Iron panel with low TIBC and normal iron is more consistent with anemia of chronic disease than of iron deficiency anemia. * Severe protein calorie malnutrition: Dietary consult , protein, albumin, and prealbumin are all low on admission, improved as of 04/27/2017. * Right leg skin injury: Seems to be healing well, decreased erythema. Stable/ resolved: * Hematochezia with positive stool Hemoccult. Blood counts improved however and vitals are stable. Held apixiban x1 dose, restarted evening 04/27/2017. Follow up after discharge with Gastroenterology regarding source of bleeding and with Cardiology regarding continued need for anticoagulation for paroxysmal AFib. Continue pantoprazole. * History of VRE. 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 * Pneumoperitoneum: Status post 14 days of ceftriaxone in [facility], following up with Gastroenterology as an outpatient. They have been monitoring status post a unchanged repeat abdominal CT on 03/30/2017. plan to monitor clinically * Paroxysmal atrial fibrillation/ atrial flutter : On anticoagulation, apixaban , amiodarone has been stopped. Notes from hospital report ejection fraction of 65%. Following up with Cardiology as an outpatient. Apparently, her previous episodes of atrial fibrillation and atrial flutter were in the context of prior surgery, and she was asymptomatic. * History of loose stools: P.r.n. Lomotil can be used if needed, not ordered at this time * History of prolonged QTC: Still present on EKG 04/27/2017. Caution re medications. * Encephalopathy. May have been the aseptic meningitis with high CSF protein or medication effect related to amiodarone or cephalosporin. Resolved, with normal screening per speech therapy. * Code Status: full code, discussed with patient on admission * Proph: currently on apixaban for paroxysmal atrial fibrillation and atrial flutter. prophylactic bowel medications p.r.n.. She lives in a single-level home with 1 step to enter. She lives with son and [id number] as well as elderly mother. Unclear how much assistance is available at home. Making good progress. Continue discharge date of 2016. Follow-up and continuity of care: The patient will need follow up with her primary care physician (Flavia Watson), Orthopedic surgery, cardiology, gastroenterology. 04/22/17 09:20 04/23/17 10:20 04/28/17 09:12 05/04/17 09:48 05/09/17 08:38 05/09/17 08:39 05/09/17 08:42 05/09/17 08:58 Subjective: chief complaint: Rehabilitation progress No acute events overnight. Patient is doing well in therapies overall, somewhat limited by some low back pain that has helped with acetaminophen and oxycodone. Additionally the right lower leg is healing better per the patient report appears to be as well. Patient had a PICC inserted over the weekend, following electrolytes. She has had significant diuresis and decrease in her lower limb edema. She denies any new shortness of breath or chest pain, no new numbness, tingling, or weakness. Objective: Vital Signs Temp Pulse Resp BP Pulse Ox 36.8 C 68 16 109/62 92 05/09/17 08:00 05/09/17 08:00 05/09/17 08:00 05/09/17 08:00 05/09/17 08:00 Laboratory Results 04/27/17 09:10 05/07/17 06:00 05/08/17 05/09/17 05/10/17 05:59 05:59 05:59 Intake Total 650 750 Output Total 300 Balance 350 750 Physical Exam - Physical Exam General Appearance: WD/WN, alert, no apparent distress EENT: No scleral icterus (R), No scleral icterus (L) Respiratory: No respiratory distress, No accessory muscle use Skin: normal color, warm/dry, No cyanosis Extremities: pedal edema ( Greatly decreased, still present although has a large body habitus as well.) Neuro/Psych: alert, normal mood/affect, oriented x 3 ICD10 Worksheet Patient Problems: Problems Problem Status Onset Morbid obesity Acute S/P total knee arthroplasty Acute Swelling of lower extremity Acute VRE (vancomycin-resistant Enterococci) Acute ~04/09/17 - ICD10 Problem Qualifiers (1) S/P total knee arthroplasty Qualifiers: Laterality: bilateral Qualified Code(s): Z96.653 - Presence of artificial knee joint, bilateral (2) Swelling of lower extremity (3) Morbid obesity
[2017-05-09] MEDS ORDERED: MAGNESIUM SULF 2 GM/WATER 50 ML IV ONE (11:45)
[2017-05-09 11:52] LABS: ANION GAP 9 mEq/L (8-16); CALCIUM 8.4 mg/dL (8.5-10.4); CARBON DIOXIDE 25 mEq/l (22-31); CHLORIDE 104 mEq/L (97-110); GLOMERULAR FILTRATION RATE 56; GLUCOSE 76 mg/dL (70-100); POTASSIUM 3.8 mEq/L (3.5-5.2); SODIUM 138 mEq/L (134-144)
[2017-05-09] MEDS: HYDROCORTISONE 0.5% CREAM TP SCH ×2 (17:45→23:02)
[2017-05-09] MEDS: QUEtiapine FUMARATE 25 MG TAB PO SCH (21:06)
[2017-05-10 08:07] LABS: CALCIUM 9.2 mg/dL (8.5-10.4); CREATININE 1.1 mg/dL (0.6-1.0); GLOMERULAR FILTRATION RATE 50; GLUCOSE 80 mg/dL (70-100); MAGNESIUM 1.7 mg/dL (1.6-2.3)
[2017-05-10 08:31] LABS: ANION GAP 8 mEq/L (8-16); CARBON DIOXIDE 25 mEq/l (22-31); CHLORIDE 102 mEq/L (97-110); POTASSIUM 4.2 mEq/L (3.5-5.2); SODIUM 135 mEq/L (134-144)
[2017-05-10] MEDS: PANTOPRAZOLE SODIUM 40 MG TAB PO SCH (08:57)
[2017-05-10] MEDS: THIAMINE HCL 100 MG TAB PO SCH (08:58)
[2017-05-10] MEDS: MULTIVITAMINS 1 EACH TAB PO SCH (08:58)
[2017-05-10] MEDS: MAGNESIUM OXIDE 400 MG TAB PO SCH (08:58)
[2017-05-10] MEDS: BUMETANIDE 1 MG TAB PO SCH (08:58)
[2017-05-10] MEDS: APIXABAN 5 MG TAB PO SCH ×2 (08:58→20:45)
[2017-05-10] MEDS: CALCIUM CARBONATE 500 MG CHEWABLE TAB PO SCH ×3 (08:58→21:00)
[2017-05-10] MEDS: SPIRONOLACTONE 25 MG TAB PO SCH (08:59)
[2017-05-10] MEDS: HYDROCORTISONE 0.5% CREAM TP SCH ×2 (09:01→21:00)
[2017-05-10] MEDS: ACETAMINOPHEN 325 MG TAB PO PRN ×3 (09:04→22:23)
[2017-05-10] MEDS: oxyCODONE IR 5 MG TAB PO PRN ×3 (09:05→22:23)
--- NOTE | 2017-05-10 13:14 | SOAPPROG ---
SOAP Progress Note Assessment/Plan: Assessment: 62-year-old morbidly obese woman with a past medical history of bilateral knee arthroplasty, status post revision of her left total knee arthroplasty on 2016 with subsequent wound dehiscence and infection and a prolonged hospital course with repeat surgeries and gastrocnemius flap for closure, and severe impairments in mobility and self-care. Hospital course was complicated by severe encephalopathy of unclear etiology with unclear cognitive deficits. * Impairments in mobility and self-care status post complicated total knee arthroplasty revision: Initial functional independence measure 56 on 04/24/2017 ; improved to 68 as of 05/01/2017, and to 86 as of 05/05/2017. Subsequent improvement and made independent in her room 05/10/2017. Required minimal assistance for transfers, ambulated 90 feet with a front wheeled walker and contact guard assist. Does grooming and hygiene standing with standby assistance, upper body dressing with setup, lower body dressing with standby assist but unable to apply her own Brayan wraps. Toileting required standby assist , toilet transfer required standby assist. Shower transfer was done with standby assist using a front wheeled walker and grab bars. Bathing required minimal assist. Continue physical therapy and occupational therapy. * Status post total knee arthroplasty with revision, gastrocnemius flap, last surgery on 03/17/2017: Continue wound dressing changes MWF and pain management , increase mobilization. Cultures did not grow any isolate. Discussed with Dr. Shaw, plastic surgery, regarding Brayan wrap. Okay to remove Brayan wrap but reapply for worsening edema. Follow up with Orthopedic surgery. Oxycodone p.r.n. * Lower extremity swelling: D-dimer slightly positive but not the unexpected after surgeries. (Outpatient diuretics were furosemide 40 mg BID, spironolactone, and PRN metolazone). Diuresed well with change from furosemide to bumetanide with addition of metolazone on 04/26/2017 and 04/27/2017. BMP, LFTs normal 04/27/2017. Initiate Brayan wrap to the left lower extremity. Added spironolactone 12.5 mg q.day starting a 05/01/2017; discontinued potassium supplement. Labs 05/04/2017 with potassium low at 3.2 and hypocalcemia. Follow- up labs 05/05/2017 with low Mg. Replete PO. Repeat labs 05/07/17. Reduce bumetanide to 0.5 mg QD. * Electrolyte abnormalities, with hypomagnesemia. He has been on magnesium IV protocol per pharmacy; PICC line inserted on 05/06/2017 for blood draws as well as IV medication administration. No IV magnesium since 05/07/2017. Has hyperphosphatemia, possibly due to hypomagnesemia; may also have acquired hypo parathyroidism though parathyroid is impaired in a low magnesium state. Repeat PTH today, 05/10/2017. Continue to monitor electrolytes. Abnormalities may resolve with repletion of magnesium and decrease in diuretics. * Hypokalemia: Repleted on labs 04/24/2017 and 04/27/2017. * Anemia: Worse 04/24/2017. Improving 04/27/2017. Recheck 05/11/2017. MCV is high. B12 normal on labs 04/24/2017. Reticulocyte count is appropriately elevated. Iron panel with low TIBC and normal iron is more consistent with anemia of chronic disease than of iron deficiency anemia. Stable/ resolved: * Severe protein calorie malnutrition: Dietary consult , protein, albumin, and prealbumin are all low on admission. Improving 04/27/2017. * Hematochezia with positive stool Hemoccult. Blood counts improved however and vitals are stable. Held apixiban x1 dose, restarted evening 04/27/2017. Follow up after discharge with Gastroenterology regarding source of bleeding and with Cardiology regarding continued need for anticoagulation for paroxysmal AFib. Continue pantoprazole. * History of VRE. 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 * Pneumoperitoneum: Status post 14 days of ceftriaxone in [facility], following up with Gastroenterology as an outpatient. They have been monitoring status post a unchanged repeat abdominal CT on 03/30/2017. plan to monitor clinically * Paroxysmal atrial fibrillation/ atrial flutter : On anticoagulation, apixaban , amiodarone has been stopped. Notes from hospital report ejection fraction of 65%. Following up with Cardiology as an outpatient. Apparently, her previous episodes of atrial fibrillation and atrial flutter were in the context of prior surgery, and she was asymptomatic. * History of loose stools: P.r.n. Lomotil can be used if needed, not ordered at this time * History of prolonged QTC: Still present on EKG 04/27/2017. Caution re medications. * Encephalopathy. May have been the aseptic meningitis with high CSF protein or medication effect related to amiodarone or cephalosporin. Resolved, with normal screening per speech therapy. * Code Status: full code, discussed with patient on admission * Proph: currently on apixaban for paroxysmal atrial fibrillation and atrial flutter. prophylactic bowel medications p.r.n.. She lives in a single-level home with 1 step to enter. She lives with son and [id number] as well as elderly mother. Unclear how much assistance is available at home. Making good progress. Continue discharge date of 2016. Follow-up and continuity of care: The patient will need follow up with her primary care physician (Flavia Watson), Orthopedic surgery, cardiology, gastroenterology. 05/05/17 12:26 05/05/17 16:56 05/10/17 13:06 Subjective: Reports urinary frequency overnight. Also has left shoulder pain and back pain. Otherwise without complaints. Has moved to independent room today. Objective: Vital Signs Temp Pulse Resp BP Pulse Ox 36.5 C 77 16 129/81 H 94 05/10/17 07:43 05/10/17 07:43 05/10/17 07:43 05/10/17 07:43 05/10/17 07:43 Laboratory Results 04/27/17 09:10 05/10/17 06:30 05/09/17 05/10/17 05/11/17 05:59 05:59 05:59 Intake Total 750 1350 118 Balance 750 1350 118 Physical Exam - Physical Exam General Appearance: WD/WN, alert, no apparent distress, obese Respiratory: normal breath sounds, No crackles, No rhonchi, No wheezing Cardiac/Chest: regular rate, rhythm, edema (1+ bilateral lower extremities over ankles), No diastolic murmur, No systolic murmur Skin: normal color, warm/dry, other (Skin graft site left knee mostly healed skin with approximately 1/2 by 0.5 cm area of thickened flaky skin medially) Neuro/Psych: no motor/sensory deficits, alert, normal mood/affect, oriented x 3 ICD10 Worksheet Patient Problems: Problems Problem Status Onset Morbid obesity Acute S/P total knee arthroplasty Acute Swelling of lower extremity Acute VRE (vancomycin-resistant Enterococci) Acute ~04/09/17
[2017-05-10] MEDS: QUEtiapine FUMARATE 25 MG TAB PO SCH (20:45)
[2017-05-11 07:36] LABS: % IMMATURE GRANULYOCYTES 0.4 % (0.0-1.1); ABSOLUTE IMMATURE GRANULOCYTES 0.02 10^3/uL (0.00-0.10); ADD DIFF? NO; ADD MORPH? NO; ADD SCAN? NO; ATYPICAL LYMPHOCYTE FLAG 50 (0-99); FRAGMENT RBC FLAG 0 (0-99); HEMATOCRIT 26.2 % (38.0-47.0); HEMOGLOBIN 8.4 g/dL (12.6-16.3); LEFT SHIFT FLG 0 (0-99); LIPEMIA HEMOLYSIS FLAG 80 (0-99); MEAN CELL HEMOGLOBIN 32.2 pg (27.9-34.1); MEAN CELL HEMOGLOBIN CONCENTR. 32.1 g/dL (32.4-36.7); MEAN CELL VOLUME 100.4 fL (81.5-99.8); MEAN PLATELET VOLUME 11.2 fL (8.7-11.7); PLATELET CLUMPS FLAG 0 (0-99); PLATELET COUNT 297 10^3/uL (150-400); RED BLOOD CELL COUNT 2.61 10^6/uL (4.18-5.33); RED CELL DISTRIBUTION WIDTH 13.9 % (11.5-15.2)
[2017-05-11 07:51] LABS: ANION GAP 11 mEq/L (8-16); CALCIUM 8.9 mg/dL (8.5-10.4); CARBON DIOXIDE 24 mEq/l (22-31); CHLORIDE 103 mEq/L (97-110); CREATININE 1.1 mg/dL (0.6-1.0); GLOMERULAR FILTRATION RATE 50; GLUCOSE 79 mg/dL (70-100); MAGNESIUM 1.5 mg/dL (1.6-2.3); POTASSIUM 4.1 mEq/L (3.5-5.2); SODIUM 138 mEq/L (134-144)
[2017-05-11] MEDS: MULTIVITAMINS 1 EACH TAB PO SCH (09:14)
[2017-05-11] MEDS: MAGNESIUM OXIDE 400 MG TAB PO SCH ×2 (09:14→21:21)
[2017-05-11] MEDS: PANTOPRAZOLE SODIUM 40 MG TAB PO SCH (09:14)
[2017-05-11] MEDS: BUMETANIDE 1 MG TAB PO SCH (09:15)
[2017-05-11] MEDS: CALCIUM CARBONATE 500 MG CHEWABLE TAB PO SCH ×3 (09:15→21:22)
[2017-05-11] MEDS: oxyCODONE IR 5 MG TAB PO PRN ×3 (09:15→21:26)
[2017-05-11] MEDS: APIXABAN 5 MG TAB PO SCH ×2 (09:15→21:22)
[2017-05-11] MEDS: SPIRONOLACTONE 25 MG TAB PO SCH (09:16)
[2017-05-11] MEDS: HYDROCORTISONE 0.5% CREAM TP SCH ×2 (09:20→21:23)
--- NOTE | 2017-05-11 12:59 | SOAPPROG ---
SOAP Progress Note Assessment/Plan: Assessment: 62-year-old morbidly obese woman with a past medical history of bilateral knee arthroplasty, status post revision of her left total knee arthroplasty on 2016 with subsequent wound dehiscence and infection and a prolonged hospital course with repeat surgeries and gastrocnemius flap for closure, and severe impairments in mobility and self-care. Hospital course was complicated by severe encephalopathy of unclear etiology with unclear cognitive deficits. * Impairments in mobility and self-care status post complicated total knee arthroplasty revision: Initial functional independence measure 56 on 04/24/2017 ; improved to 68 as of 05/01/2017, to 86 as of 05/05/2017, and to 106 as of . Independent in her room 05/10/2017. Needs to be able to descend and then climb a 7 inch step to be able to enter her home; has accomplished a 6 inch step but not a 7 step. Standing tolerance has improved to 8 to 10 minutes. Has accomplished a car transfer. Continue physical therapy and occupational therapy. * Status post total knee arthroplasty with revision, gastrocnemius flap, last surgery on 03/17/2017: Completely epithelialized. Discussed with Dr. Shaw, plastic surgery, regarding Brayan wrap. Okay to remove Brayan wrap but reapply for worsening edema. Follow up with Orthopedic surgery. Oxycodone p.r.n. * Lower extremity swelling: D-dimer slightly positive but not the unexpected after surgeries. (Outpatient diuretics were furosemide 40 mg BID, spironolactone, and PRN metolazone). Excellent response to diuretics with 16 kg weight loss and much improved lower extremity edema: diuresed well with change from furosemide to bumetanide with addition of metolazone on 04/26/2017 and 04/27/2017. BMP, LFTs normal 04/27/2017. Initiate Brayan wrap to the left lower extremity. Added spironolactone 12.5 mg q.day starting a 05/01/2017; discontinued potassium supplement. Labs 05/04/2017 with potassium low at 3.2 and hypocalcemia. Follow-up labs 05/05/2017 with low Mg. Replete PO. Repeat labs 05/07/17. Reduce bumetanide to 0.5 mg QD. Reduced bumetanide further to 0.25 mg q.day starting 05/12/2017. * Electrolyte abnormalities, with hypomagnesemia. He has been on magnesium IV protocol per pharmacy; PICC line inserted on 05/06/2017 for blood draws as well as IV medication administration. No IV magnesium since 05/07/2017. Has hyperphosphatemia, possibly due to hypomagnesemia; may also have acquired hypo parathyroidism though parathyroid is impaired in a low magnesium state. Repeat PTH 05/10/2017, normal. Magnesium slightly low at 1.5 on labs 05/11/2017. Increase oral replacement to magnesium oxide 400 mg twice daily from q.day. Continue to monitor electrolytes. Abnormalities may resolve with repletion of magnesium and decrease in diuretics. * Hypokalemia: Repleted on labs 04/24/2017 and 04/27/2017. * Anemia: Worse 04/24/2017. Improving 04/27/2017. Unchanged 05/11/2017 with reticulocytes inappropriately low. MCV is high. B12 normal on labs 2016. Iron panel with low TIBC and normal iron is more consistent with anemia of chronic disease than of iron deficiency anemia. Follow up with Gastroenterology after discharge; had pneumoperitoneum in the hospital presumably due to perforated ulcer. Stable/ resolved: * Severe protein calorie malnutrition: Dietary consult , protein, albumin, and prealbumin are all low on admission. Improving 04/27/2017. * Hematochezia with positive stool Hemoccult. Blood counts improved however and vitals are stable. Held apixiban x1 dose, restarted evening 04/27/2017. Follow up after discharge with Gastroenterology regarding source of bleeding and with Cardiology regarding continued need for anticoagulation for paroxysmal AFib. Continue pantoprazole. * History of VRE. 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 * Pneumoperitoneum: Status post 14 days of ceftriaxone in [facility], following up with Gastroenterology as an outpatient. They have been monitoring status post a unchanged repeat abdominal CT on 03/30/2017. plan to monitor clinically * Paroxysmal atrial fibrillation/ atrial flutter : On anticoagulation, apixaban , amiodarone has been stopped. Notes from hospital report ejection fraction of 65%. Following up with Cardiology as an outpatient. Apparently, her previous episodes of atrial fibrillation and atrial flutter were in the context of prior surgery, and she was asymptomatic. * History of loose stools: P.r.n. Lomotil can be used if needed, not ordered at this time * History of prolonged QTC: Still present on EKG 04/27/2017. Caution re medications. * Encephalopathy. May have been the aseptic meningitis with high CSF protein or medication effect related to amiodarone or cephalosporin. Resolved, with normal screening per speech therapy. * Code Status: full code, discussed with patient on admission * Proph: currently on apixaban for paroxysmal atrial fibrillation and atrial flutter. prophylactic bowel medications p.r.n.. Attended staffing, 15 minutes. Discussed with case management, nursing, PT, OT. She lives in a single-level home with 1 step to enter. She lives with son and [id number] as well as elderly mother. Making good progress. Discharge 05/15/2017. Home physical and occupational therapies. Follow-up and continuity of care: The patient will need follow up with her primary care physician (Flavia Watson), Orthopedic surgery, cardiology, gastroenterology. 05/11/17 14:46 Subjective: No complaints. Doing well today. Was up independently to the bathroom last night and noted greater ease in getting her legs back into bed. Objective: Vital Signs Temp Pulse Resp BP Pulse Ox 36.6 C 75 16 114/71 95 05/11/17 08:00 05/11/17 08:00 05/11/17 08:00 05/11/17 08:00 05/11/17 08:00 Laboratory Results 05/11/17 06:00 05/11/17 06:00 05/10/17 05/11/17 05/12/17 05:59 05:59 05:59 Intake Total 1350 318 320 Balance 1350 318 320 - Time Spent With Patient Time Spent With Patient: Greater than 35 minutes floor time today, including more than 50% of time in coordination of care during staffing meeting, and counseling patient. Physical Exam - Physical Exam General Appearance: WD/WN, alert, no apparent distress, obese Respiratory: No respiratory distress, No accessory muscle use Cardiac/Chest: edema (1 to 2+ bilateral ankles) Skin: normal color, warm/dry, other (Skin graft site over muscle flap left lower extremity completely epithelialized.) Neuro/Psych: no motor/sensory deficits, alert, normal mood/affect, oriented x 3 ICD10 Worksheet Patient Problems: Problems Problem Status Onset Morbid obesity Acute S/P total knee arthroplasty Acute Swelling of lower extremity Acute VRE (vancomycin-resistant Enterococci) Acute ~04/09/17
[2017-05-11] MEDS: ACETAMINOPHEN 325 MG TAB PO PRN ×2 (15:18→21:26)
[2017-05-11] MEDS: AQUAPHOR OINTMENT 3.5 OZ JAR TP SCH (15:19)
[2017-05-11] MEDS: QUEtiapine FUMARATE 25 MG TAB PO SCH (21:22)
[2017-05-12] MEDS: oxyCODONE IR 5 MG TAB PO PRN ×4 (01:34→22:15)
[2017-05-12 08:01] LABS: ANION GAP 11 mEq/L (8-16); CALCIUM 8.2 mg/dL (8.5-10.4); CARBON DIOXIDE 23 mEq/l (22-31); CHLORIDE 105 mEq/L (97-110); CREATININE 1.1 mg/dL (0.6-1.0); GLOMERULAR FILTRATION RATE 50; GLUCOSE 75 mg/dL (70-100); MAGNESIUM 1.3 mg/dL (1.6-2.3); POTASSIUM 3.7 mEq/L (3.5-5.2); SODIUM 139 mEq/L (134-144)
[2017-05-12] MEDS: CALCIUM CARBONATE 500 MG CHEWABLE TAB PO SCH ×3 (10:17→21:15)
[2017-05-12] MEDS: MULTIVITAMINS 1 EACH TAB PO SCH (10:18)
[2017-05-12] MEDS: SPIRONOLACTONE 25 MG TAB PO SCH (10:18)
[2017-05-12] MEDS: ACETAMINOPHEN 325 MG TAB PO PRN ×2 (10:19→22:15)
[2017-05-12] MEDS: APIXABAN 5 MG TAB PO SCH ×2 (10:19→21:15)
[2017-05-12] MEDS: PANTOPRAZOLE SODIUM 40 MG TAB PO SCH (10:19)
[2017-05-12] MEDS: BUMETANIDE 1 MG TAB PO SCH (10:20)
[2017-05-12] MEDS: HYDROCORTISONE 0.5% CREAM TP SCH ×2 (10:24→21:17)
[2017-05-12] MEDS: AQUAPHOR OINTMENT 3.5 OZ JAR TP SCH ×2 (10:25→21:17)
[2017-05-12] MEDS: MAGNESIUM OXIDE 400 MG TAB PO SCH ×3 (10:26→21:15)
--- NOTE | 2017-05-12 12:25 | SOAPPROG ---
SOAP Progress Note Assessment/Plan: Assessment: 62-year-old morbidly obese woman with a past medical history of bilateral knee arthroplasty, status post revision of her left total knee arthroplasty on 2016 with subsequent wound dehiscence and infection and a prolonged hospital course with repeat surgeries and gastrocnemius flap for closure, and severe impairments in mobility and self-care. Hospital course was complicated by severe encephalopathy of unclear etiology with unclear cognitive deficits. * Impairments in mobility and self-care status post complicated total knee arthroplasty revision: Initial functional independence measure 56 on 04/24/2017 ; improved to 68 as of 05/01/2017, to 86 as of 05/05/2017, and to 106 as of . Independent in her room 05/10/2017. Needs to be able to descend and then climb a 7 inch step to be able to enter her home; has accomplished a 6 inch step but not a 7 step. Standing tolerance has improved to 8 to 10 minutes. Has accomplished a car transfer. Continue physical therapy and occupational therapy. * Status post total knee arthroplasty with revision, gastrocnemius flap, last surgery on 03/17/2017: Completely epithelialized. Discussed with Dr. Shaw, plastic surgery, regarding Brayan wrap. Okay to remove Brayan wrap but reapply for worsening edema. Follow up with Orthopedic surgery. Oxycodone p.r.n. * Lower extremity swelling: D-dimer slightly positive but not the unexpected after surgeries. (Outpatient diuretics were furosemide 40 mg BID, spironolactone, and PRN metolazone). Excellent response to diuretics with 16 kg weight loss and much improved lower extremity edema: diuresed well with change from furosemide to bumetanide with addition of metolazone on 04/26/2017 and 04/27/2017. BMP, LFTs normal 04/27/2017. Initiate Brayan wrap to the left lower extremity. Added spironolactone 12.5 mg q.day starting a 05/01/2017; discontinued potassium supplement. Labs 05/04/2017 with potassium low at 3.2 and hypocalcemia. Follow-up labs 05/05/2017 with low Mg. Replete PO. Repeat labs 05/07/17. Reduce bumetanide to 0.5 mg QD. Reduced bumetanide further to 0.25 mg q.day starting 05/12/2017. * Electrolyte abnormalities, with hypomagnesemia. He has been on magnesium IV protocol per pharmacy; PICC line inserted on 05/06/2017 for blood draws as well as IV medication administration. No IV magnesium since 05/07/2017. Has hyperphosphatemia, possibly due to hypomagnesemia; may also have acquired hypo parathyroidism though parathyroid is impaired in a low magnesium state. Repeat PTH 05/10/2017, normal. Magnesium slightly low at 1.5 on labs 05/11/2017. Increased oral replacement to magnesium oxide 400 mg twice daily from q.day on , and to three times daily on 05/12/2017. Continue to monitor electrolytes. Abnormalities may resolve with repletion of magnesium and decrease in diuretics. * Hypokalemia: Repleted on labs 04/24/2017 and 04/27/2017. * Anemia: Worse 04/24/2017. Improving 04/27/2017. Unchanged 05/11/2017 with reticulocytes inappropriately low. MCV is high. B12 normal on labs 2016. Iron panel with low TIBC and normal iron is more consistent with anemia of chronic disease than of iron deficiency anemia. Repeat iron panel on 2016. Follow up with Gastroenterology after discharge; had pneumoperitoneum in the hospital presumably due to perforated ulcer. Stable/ resolved: * Severe protein calorie malnutrition: Dietary consult , protein, albumin, and prealbumin are all low on admission. Improving 04/27/2017. * Hematochezia with positive stool Hemoccult. Blood counts improved however and vitals are stable. Held apixiban x1 dose, restarted evening 04/27/2017. Follow up after discharge with Gastroenterology regarding source of bleeding and with Cardiology regarding continued need for anticoagulation for paroxysmal AFib. Continue pantoprazole. * History of VRE. 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 * Pneumoperitoneum: Status post 14 days of ceftriaxone in acute care hospital, following up with Gastroenterology as an outpatient. They have been monitoring status post a unchanged repeat abdominal CT on 03/30/2017. plan to monitor clinically * Paroxysmal atrial fibrillation/ atrial flutter : On anticoagulation, apixaban , amiodarone has been stopped. Notes from hospital report ejection fraction of 65%. Following up with Cardiology as an outpatient. Apparently, her previous episodes of atrial fibrillation and atrial flutter were in the context of prior surgery, and she was asymptomatic. * History of loose stools: P.r.n. Lomotil can be used if needed, not ordered at this time * History of prolonged QTC: Still present on EKG 04/27/2017. Caution re medications. * Encephalopathy. May have been the aseptic meningitis with high CSF protein or medication effect related to amiodarone or cephalosporin. Resolved, with normal screening per speech therapy. * Code Status: full code, discussed with patient on admission * Proph: currently on apixaban for paroxysmal atrial fibrillation and atrial flutter. prophylactic bowel medications p.r.n.. She lives in a single-level home with 1 step to enter. She lives with son and [id number] as well as elderly mother. Making good progress. Discharge 07/2017. Home physical and occupational therapies. Follow-up and continuity of care: The patient will need follow up with her primary care physician (Flavia Watson), Orthopedic surgery, cardiology, gastroenterology. 05/12/17 12:25 Subjective: No complaints. Did not want to go home with PICC line or IV therapy. Discussed alternative compression wraps for her legs. She prefers not to use Chirag hose. However she needed assistance for the Brayan wraps. Objective: Vital Signs Temp Pulse Resp BP Pulse Ox 36.6 C 69 16 111/68 95 05/12/17 07:29 05/12/17 07:29 05/12/17 07:29 05/12/17 07:29 05/12/17 07:29 Laboratory Results 05/11/17 06:00 05/12/17 06:30 05/11/17 05/12/17 05/13/17 05:59 05:59 05:59 Intake Total 318 970 840 Balance 318 970 840 Physical Exam - Physical Exam General Appearance: WD/WN, alert, no apparent distress Respiratory: normal breath sounds, No crackles, No rhonchi, No wheezing Cardiac/Chest: regular rate, rhythm, edema (1 to 2+ bilaterally lower extremities), No JVD Skin: normal color, warm/dry Neuro/Psych: no motor/sensory deficits, alert, normal mood/affect, oriented x 3 ICD10 Worksheet Patient Problems: Problems Problem Status Onset Morbid obesity Acute S/P total knee arthroplasty Acute Swelling of lower extremity Acute VRE (vancomycin-resistant Enterococci) Acute ~04/09/17
[2017-05-12] MEDS: QUEtiapine FUMARATE 25 MG TAB PO SCH (21:19)
[2017-05-13] MEDS: oxyCODONE IR 5 MG TAB PO PRN ×4 (03:47→21:53)
[2017-05-13 07:39] LABS: ANION GAP 12 mEq/L (8-16); CALCIUM 8.8 mg/dL (8.5-10.4); CARBON DIOXIDE 24 mEq/l (22-31); CHLORIDE 103 mEq/L (97-110); GLOMERULAR FILTRATION RATE 56; GLUCOSE 84 mg/dL (70-100); MAGNESIUM 1.3 mg/dL (1.6-2.3); SODIUM 139 mEq/L (134-144)
[2017-05-13 07:47] LABS: % SATURATION 23 % (20-55); TOTAL IRON BINDING CAPACITY 218 ug/dL (260-490)
[2017-05-13] MEDS: ACETAMINOPHEN 325 MG TAB PO PRN ×3 (08:41→21:53)
[2017-05-13] MEDS: HYDROCORTISONE 0.5% CREAM TP SCH ×2 (08:41→23:06)
[2017-05-13] MEDS: CALCIUM CARBONATE 500 MG CHEWABLE TAB PO SCH ×3 (08:42→21:14)
[2017-05-13] MEDS: PANTOPRAZOLE SODIUM 40 MG TAB PO SCH (08:42)
[2017-05-13] MEDS: MAGNESIUM OXIDE 400 MG TAB PO SCH ×3 (08:42→21:14)
[2017-05-13] MEDS: BUMETANIDE 1 MG TAB PO SCH (08:43)
[2017-05-13] MEDS: APIXABAN 5 MG TAB PO SCH ×2 (08:43→21:14)
[2017-05-13] MEDS: SPIRONOLACTONE 25 MG TAB PO SCH (08:43)
[2017-05-13] MEDS: MULTIVITAMINS 1 EACH TAB PO SCH (08:43)
[2017-05-13] MEDS: AQUAPHOR OINTMENT 3.5 OZ JAR TP SCH ×2 (08:48→23:07)
--- NOTE | 2017-05-13 12:18 | SOAPPROG ---
TORI Progress Note Assessment/Plan: 62-year-old morbidly obese woman with a past medical history of bilateral knee arthroplasty, status post revision of her left total knee arthroplasty on 2016 with subsequent wound dehiscence and infection and a prolonged hospital course with repeat surgeries and gastrocnemius flap for closure, and severe impairments in mobility and self-care. Hospital course was complicated by severe encephalopathy of unclear etiology with unclear cognitive deficits. Today's update: Continues to have low magnesium despite p.o. and IV magnesium repletion. Discussed with pharmacy, we will give 2 g IV x2 overnight with recheck in the morning. Unclear why she has had such profound hypomagnesemia. Checking a spot urine, and considered and 24 hour urine magnesium as well, however we will stay with the spot urine magnesium because she will be on high dose of IV overnight. She is on 400 mg p.o. 3 times a day, Pharmacy also okay with maintaining this dose with IV at the same time. Goal to transfuse a larger amount over a longer period of time to avoid kidney wasting. She has reasonable renal capacity comma also has many reasons for possible hypomagnesemia including poor GI absorption as she is on a PPI, poor nutritional status, recent volume expansion, as well as the possibility of a familial renal wasting syndrome. She does not have any history of that in her family that she is aware of. The differential diagnosis is fairly large, however we will work to replete IV as much as possible before discharging home, however she can discharged with a PICC and get further infusions after discharge. Continue to monitor closely. Otherwise therapies are going well, remainder of plan unchanged . A total of 35 minutes was spent on the floor in the care of the patient, the majority of which was spent in counseling and coordination of care regarding possible etiologies and treatment options for hypomagnesemia as well as the potential sequelae and risks. * Impairments in mobility and self-care status post complicated total knee arthroplasty revision: Initial functional independence measure 56 on 04/24/2017 ; improved to 68 as of 05/01/2017, to 86 as of 05/05/2017, and to 106 as of . Independent in her room 05/10/2017. Needs to be able to descend and then climb a 7 inch step to be able to enter her home; has accomplished a 6 inch step but not a 7 step. Standing tolerance has improved to 8 to 10 minutes. Has accomplished a car transfer. Continue physical therapy and occupational therapy. * Status post total knee arthroplasty with revision, gastrocnemius flap, last surgery on 03/17/2017: Completely epithelialized. Discussed with Dr. Shaw, plastic surgery, regarding Brayan wrap. Okay to remove Brayan wrap but reapply for worsening edema. Follow up with Orthopedic surgery. Oxycodone p.r.n. * Lower extremity swelling: D-dimer slightly positive but not the unexpected after surgeries. (Outpatient diuretics were furosemide 40 mg BID, spironolactone, and PRN metolazone). Excellent response to diuretics with 16 kg weight loss and much improved lower extremity edema: diuresed well with change from furosemide to bumetanide with addition of metolazone on 04/26/2017 and 04/27/2017. BMP, LFTs normal 04/27/2017. Initiate Brayan wrap to the left lower extremity. Added spironolactone 12.5 mg q.day starting a 05/01/2017; discontinued potassium supplement. Labs 05/04/2017 with potassium low at 3.2 and hypocalcemia. Follow-up labs 05/05/2017 with low Mg. Replete PO. Repeat labs 05/07/17. Reduce bumetanide to 0.5 mg QD. Reduced bumetanide further to 0.25 mg q.day starting 05/12/2017. * Electrolyte abnormalities, with hypomagnesemia. He has been on magnesium IV protocol per pharmacy; PICC line inserted on 05/06/2017 for blood draws as well as IV medication administration. No IV magnesium since 05/07/2017. Has hyperphosphatemia, possibly due to hypomagnesemia; may also have acquired hypo parathyroidism though parathyroid is impaired in a low magnesium state. Repeat PTH 05/10/2017, normal. Increased oral replacement to magnesium oxide 400 mg twice daily from q.day on 05/11/2017, and to three times daily on 05/12/2017. Continue to monitor electrolytes. Abnormalities may resolve with repletion of magnesium and decrease in diuretics. As of 05/13/2017, discussed with pharmacy and will give 2 g of magnesium x2 over the next night, checking magnesium in the morning. * Hypokalemia: Repleted on labs 04/24/2017 and 04/27/2017. * Anemia: Worse 04/24/2017. Improving 04/27/2017. Unchanged 05/11/2017 with reticulocytes inappropriately low. MCV is high. B12 normal on labs 2016. Iron panel with low TIBC and normal iron is more consistent with anemia of chronic disease than of iron deficiency anemia. Follow up with Gastroenterology after discharge; had pneumoperitoneum in the hospital presumably due to perforated ulcer. TIBC improved on 05/13/2017. Still has normal range of iron and iron saturation. Stable/ resolved: * Severe protein calorie malnutrition: Dietary consult , protein, albumin, and prealbumin are all low on admission. Improving 04/27/2017. * Hematochezia with positive stool Hemoccult. Blood counts improved however and vitals are stable. Held apixiban x1 dose, restarted evening 04/27/2017. Follow up after discharge with Gastroenterology regarding source of bleeding and with Cardiology regarding continued need for anticoagulation for paroxysmal AFib. Continue pantoprazole. * History of VRE. 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 * Pneumoperitoneum: Status post 14 days of ceftriaxone in acute care hospital, following up with Gastroenterology as an outpatient. They have been monitoring status post a unchanged repeat abdominal CT on 03/30/2017. plan to monitor clinically * Paroxysmal atrial fibrillation/ atrial flutter : On anticoagulation, apixaban , amiodarone has been stopped. Notes from hospital report ejection fraction of 65%. Following up with Cardiology as an outpatient. Apparently, her previous episodes of atrial fibrillation and atrial flutter were in the context of prior surgery, and she was asymptomatic. * History of loose stools: P.r.n. Lomotil can be used if needed, not ordered at this time * History of prolonged QTC: Still present on EKG 04/27/2017. Caution re medications. * Encephalopathy. May have been the aseptic meningitis with high CSF protein or medication effect related to amiodarone or cephalosporin. Resolved, with normal screening per speech therapy. * Code Status: full code, discussed with patient on admission * Proph: currently on apixaban for paroxysmal atrial fibrillation and atrial flutter. prophylactic bowel medications p.r.n.. She lives in a single-level home with 1 step to enter. She lives with son and [id number] as well as elderly mother. Making good progress. Discharge 07/2017. Home physical and occupational therapies. Follow-up and continuity of care: The patient will need follow up with her primary care physician (Flavia Watson), Orthopedic surgery, cardiology, gastroenterology. 05/13/17 12:19 Subjective: chief complaint: Hypomagnesemia No acute events overnight. Patient is looking forward to going home soon. No shortness of breath or chest pain, no new numbness, tingling or weakness. She continues to have low magnesium despite p. o. and IV. She is not having any diarrhea or abdominal discomfort because of the p.o. magnesium. She has received IV magnesium a number of times, usually in small doses over a bolus. Patient denies any family history of similar types of things, no history of renal disease, no sudden cardiac except for an uncle who during a [employer]. she states she is feeling much better, the fluid status continues to improve. Discussed with her at length the potential causes of hypomagnesemia, potential treatments, as well as where we hope to get her by discharge. Objective: Vital Signs Temp Pulse Resp BP Pulse Ox 36.5 C 79 16 132/73 H 97 05/13/17 08:00 05/13/17 08:00 05/13/17 08:00 05/13/17 08:00 05/13/17 08:00 Laboratory Results 05/11/17 06:00 05/13/17 06:00 05/12/17 05/13/17 05/14/17 05:59 05:59 05:59 Intake Total 970 1340 300 Balance 970 1340 300 Physical Exam - Physical Exam General Appearance: WD/WN, alert, no apparent distress Respiratory: No respiratory distress, No accessory muscle use Cardiac/Chest: normal peripheral pulses, regular rate, rhythm, edema ( Greatly improved, 1+ in the bilateral legs.) Skin: normal color, warm/dry, other ( PICC in place, no surrounding erythema), No cyanosis Extremities: non-tender Neuro/Psych: alert, normal mood/affect, oriented x 3, other ( sitting in a manul wheelchair.) ICD10 Worksheet Patient Problems: Problems Problem Status Onset Morbid obesity Acute S/P total knee arthroplasty Acute Swelling of lower extremity Acute VRE (vancomycin-resistant Enterococci) Acute ~04/09/17 - ICD10 Problem Qualifiers (1) S/P total knee arthroplasty Qualifiers: Laterality: bilateral Qualified Code(s): Z96.653 - Presence of artificial knee joint, bilateral (2) Swelling of lower extremity (3) Morbid obesity
[2017-05-13] MEDS ORDERED: MAGNESIUM SULFATE IV ONE ×2 (15:30→21:30)
[2017-05-13] MEDS ORDERED: D5W IV ONE ×2 (15:30→21:30)
[2017-05-13] MEDS ORDERED: MAGNESIUM SULF 2 GM/WATER 50 ML IV ONE ×2 (15:30→21:30)
[2017-05-13] MEDS: QUEtiapine FUMARATE 25 MG TAB PO SCH (21:14)
[2017-05-14] MEDS: oxyCODONE IR 5 MG TAB PO PRN ×4 (03:49→22:14)
[2017-05-14] MEDS: CALCIUM CARBONATE 500 MG CHEWABLE TAB PO SCH ×3 (08:42→22:14)
[2017-05-14] MEDS: BUMETANIDE 1 MG TAB PO SCH (08:42)
[2017-05-14] MEDS: MAGNESIUM OXIDE 400 MG TAB PO SCH ×3 (08:43→22:15)
[2017-05-14] MEDS: SPIRONOLACTONE 25 MG TAB PO SCH (08:44)
[2017-05-14] MEDS: APIXABAN 5 MG TAB PO SCH ×2 (08:44→22:14)
[2017-05-14] MEDS: ACETAMINOPHEN 325 MG TAB PO PRN ×2 (08:44→22:14)
[2017-05-14] MEDS: MULTIVITAMINS 1 EACH TAB PO SCH (08:44)
[2017-05-14] MEDS: HYDROCORTISONE 0.5% CREAM TP SCH (08:45)
[2017-05-14] MEDS: PANTOPRAZOLE SODIUM 40 MG TAB PO SCH (08:45)
[2017-05-14] MEDS: AQUAPHOR OINTMENT 3.5 OZ JAR TP SCH (08:46)
[2017-05-14 09:06] LABS: ANION GAP 9 mEq/L (8-16); CALCIUM 8.9 mg/dL (8.5-10.4); CARBON DIOXIDE 26 mEq/l (22-31); CHLORIDE 102 mEq/L (97-110); GLOMERULAR FILTRATION RATE 56; GLUCOSE 80 mg/dL (70-100); POTASSIUM 4.1 mEq/L (3.5-5.2); SODIUM 137 mEq/L (134-144)
--- NOTE | 2017-05-14 11:42 | SOAPPROG ---
SOAP Progress Note Assessment/Plan: 62-year-old morbidly obese woman with a past medical history of bilateral knee arthroplasty, status post revision of her left total knee arthroplasty on 2016 with subsequent wound dehiscence and infection and a prolonged hospital course with repeat surgeries and gastrocnemius flap for closure, and severe impairments in mobility and self-care. Hospital course was complicated by severe encephalopathy of unclear etiology with unclear cognitive deficits. Today's update: Excellent response to IV magnesium comma 4 g given overnight. Magnesium level today is 2.0, phosphorus is still elevated at 6.9 but this is likely due to volume contraction. Calcium remains normal. Urine magnesium is less than 1.2, low, which is as it should be given her low magnesium at the time that was taken. That helps us rule out a nephrogenic cause of hypomagnesemia. 24 hour urine was canceled because she was getting a large dose of IV magnesium during that time. Plan to recheck electrolytes tomorrow on day of discharge, may consider giving another slow infusion of magnesium that day if necessary. Plan to follow up closely with her primary care physician in a week after discharge For electrolyte management and further workup of her hypomagnesemia if necessary. Otherwise doing well in therapies, remainder of plan unchanged. A total of 35 minutes was spent on the floor in the care of the patient, the majority of which was spent in counseling and coordination of care regarding discussion about lab results, ongoing care needs, and discharge planning. * Impairments in mobility and self-care status post complicated total knee arthroplasty revision: Initial functional independence measure 56 on 04/24/2017 ; improved to 68 as of 05/01/2017, to 86 as of 05/05/2017, and to 106 as of . Independent in her room 05/10/2017. Needs to be able to descend and then climb a 7 inch step to be able to enter her home; has accomplished a 6 inch step but not a 7 step. Standing tolerance has improved to 8 to 10 minutes. Has accomplished a car transfer. Continue physical therapy and occupational therapy. * Status post total knee arthroplasty with revision, gastrocnemius flap, last surgery on 03/17/2017: Completely epithelialized. Discussed with Dr. Shaw, plastic surgery, regarding Brayan wrap. Okay to remove Brayan wrap but reapply for worsening edema. Follow up with Orthopedic surgery. Oxycodone p.r.n. * Lower extremity swelling: D-dimer slightly positive but not the unexpected after surgeries. (Outpatient diuretics were furosemide 40 mg BID, spironolactone, and PRN metolazone). Excellent response to diuretics with 16 kg weight loss and much improved lower extremity edema: diuresed well with change from furosemide to bumetanide with addition of metolazone on 04/26/2017 and 04/27/2017. BMP, LFTs normal 04/27/2017. Initiate Brayan wrap to the left lower extremity. Added spironolactone 12.5 mg q.day starting a 05/01/2017; discontinued potassium supplement. Labs 05/04/2017 with potassium low at 3.2 and hypocalcemia. Follow-up labs 05/05/2017 with low Mg. Replete PO. Repeat labs 05/07/17. Reduce bumetanide to 0.5 mg QD. Reduced bumetanide further to 0.25 mg q.day starting 05/12/2017. * Electrolyte abnormalities, with hypomagnesemia. He has been on magnesium IV protocol per pharmacy; PICC line inserted on 05/06/2017 for blood draws as well as IV medication administration. No IV magnesium since 05/07/2017. Has hyperphosphatemia, possibly due to hypomagnesemia; may also have acquired hypo parathyroidism though parathyroid is impaired in a low magnesium state. Repeat PTH 05/10/2017, normal. Increased oral replacement to magnesium oxide 400 mg twice daily from q.day on 05/11/2017, and to three times daily on 05/12/2017. Continue to monitor electrolytes. Abnormalities may resolve with repletion of magnesium and decrease in diuretics. As of 05/13/2017, discussed with pharmacy and will give 2 g of magnesium x2 over the next night, Morning magnesium was 2.0, continue to monitor. * Hyperphosphatemia: Likely due to volume contraction, calcium has been stable. Continue to monitor. * Hypokalemia: Repleted on labs 04/24/2017 and 04/27/2017. * Anemia: Worse 04/24/2017. Improving 04/27/2017. Unchanged 05/11/2017 with reticulocytes inappropriately low. MCV is high. B12 normal on labs 2016. Iron panel with low TIBC and normal iron is more consistent with anemia of chronic disease than of iron deficiency anemia. Follow up with Gastroenterology after discharge; had pneumoperitoneum in the hospital presumably due to perforated ulcer. TIBC improved on 05/13/2017. Still has normal range of iron and iron saturation. Stable/ resolved: * Severe protein calorie malnutrition: Dietary consult , protein, albumin, and prealbumin are all low on admission. Improving 04/27/2017. * Hematochezia with positive stool Hemoccult. Blood counts improved however and vitals are stable. Held apixiban x1 dose, restarted evening 04/27/2017. Follow up after discharge with Gastroenterology regarding source of bleeding and with Cardiology regarding continued need for anticoagulation for paroxysmal AFib. Continue pantoprazole. * History of VRE. 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 * Pneumoperitoneum: Status post 14 days of ceftriaxone in [facility], following up with Gastroenterology as an outpatient. They have been monitoring status post a unchanged repeat abdominal CT on 03/30/2017. plan to monitor clinically * Paroxysmal atrial fibrillation/ atrial flutter : On anticoagulation, apixaban , amiodarone has been stopped. Notes from hospital report ejection fraction of 65%. Following up with Cardiology as an outpatient. Apparently, her previous episodes of atrial fibrillation and atrial flutter were in the context of prior surgery, and she was asymptomatic. * History of loose stools: P.r.n. Lomotil can be used if needed, not ordered at this time * History of prolonged QTC: Still present on EKG 04/27/2017. Caution re medications. * Encephalopathy. May have been the aseptic meningitis with high CSF protein or medication effect related to amiodarone or cephalosporin. Resolved, with normal screening per speech therapy. * Code Status: full code, discussed with patient on admission * Proph: currently on apixaban for paroxysmal atrial fibrillation and atrial flutter. prophylactic bowel medications p.r.n.. She lives in a single-level home with 1 step to enter. She lives with son and [id number] as well as elderly mother. Making good progress. Discharge 07/2017. Home physical and occupational therapies. Follow-up and continuity of care: The patient will need follow up with her primary care physician (Flavia Watson), Orthopedic surgery, cardiology, gastroenterology. 05/13/17 12:19 05/14/17 11:38 Subjective: Chief complaint: Electrolyte imbalance No acute events overnight. Patient received 4 g total infusion of magnesium overnight over 12 hours, magnesium this morning is 2.0. Phosphate remains high and calcium remained stable. Patient endorsed no new shortness of breath or chest pain no new numbness, tingling or weakness, she endorses that she continues to slowly diurese and though she still has some swelling in her legs it is much better. She states that she will have a follow-up appointment with her primary care physician on the following Monday after discharge. Still planning to discharge with the PICC. Going well in therapies, no new concerns today. Objective: Vital Signs Temp Pulse Resp BP Pulse Ox 36.4 C 81 16 109/64 94 05/14/17 08:00 05/14/17 08:00 05/14/17 08:00 05/14/17 08:00 05/14/17 08:00 Laboratory Results 05/11/17 06:00 05/14/17 06:40 05/13/17 05/14/17 05/15/17 05:59 05:59 05:59 Intake Total 1340 1281 360 Balance 1340 1281 360 Physical Exam - Physical Exam General Appearance: WD/WN, alert, no apparent distress, other ( Working with physical therapy) EENT: No scleral icterus (R), No scleral icterus (L) Respiratory: No respiratory distress, No accessory muscle use Cardiac/Chest: regular rate, rhythm, edema ( continued bilateral lowr limb edema ) Skin: normal color, warm/dry, No cyanosis Extremities: pedal edema Neuro/Psych: alert, normal mood/affect, oriented x 3 ICD10 Worksheet Patient Problems: Problems Problem Status Onset Morbid obesity Acute S/P total knee arthroplasty Acute Swelling of lower extremity Acute VRE (vancomycin-resistant Enterococci) Acute ~04/09/17 - ICD10 Problem Qualifiers (1) S/P total knee arthroplasty Qualifiers: Laterality: bilateral Qualified Code(s): Z96.653 - Presence of artificial knee joint, bilateral (2) Swelling of lower extremity (3) Morbid obesity
--- NOTE | 2017-05-14 20:02 | PDOREHIP ---
Admission [facility] - Admission - 3 Day Assessment Period Admission Date/Day 1: 04/21/17 Day 2: 04/22/17 Day 3: 04/23/17 Discharge [facility] - Discharge - 3 Day Assessment Period 2 Days Prior to Anticipated Discharge Date: 05/13/17 1 Day Prior to Anticipated Discharge Date: 05/14/17 Anticipated Discharge Date: 05/15/17 - Discharge Skin Conditions Unhealed Pressure Ulcer (1 or more/Stage 1 or >)-Discharge: 1. Yes # Stage 1 Pressure Ulcers-Discharge: 2 (on hte right lateral ankle)
[2017-05-14] MEDS: QUEtiapine FUMARATE 25 MG TAB PO SCH (22:15)
[2017-05-15] MEDS: oxyCODONE IR 5 MG TAB PO PRN ×3 (03:01→14:08)
[2017-05-15] MEDS: HYDROCORTISONE 0.5% CREAM TP SCH ×2 (03:02→09:50)
[2017-05-15] MEDS: ACETAMINOPHEN 325 MG TAB PO PRN ×2 (07:51→14:09)
[2017-05-15] MEDS: BUMETANIDE 1 MG TAB PO SCH (07:52)
[2017-05-15] MEDS: PANTOPRAZOLE SODIUM 40 MG TAB PO SCH (07:54)
[2017-05-15] MEDS: SPIRONOLACTONE 25 MG TAB PO SCH (07:55)
[2017-05-15] MEDS: APIXABAN 5 MG TAB PO SCH (07:55)
[2017-05-15] MEDS: AQUAPHOR OINTMENT 3.5 OZ JAR TP SCH ×2 (07:56→09:51)
[2017-05-15] MEDS: MAGNESIUM OXIDE 400 MG TAB PO SCH ×2 (07:56→14:09)
[2017-05-15] MEDS: MULTIVITAMINS 1 EACH TAB PO SCH (07:56)
[2017-05-15 07:57] LABS: ANION GAP 8 mEq/L (8-16); CALCIUM 9.5 mg/dL (8.5-10.4); CARBON DIOXIDE 26 mEq/l (22-31); CHLORIDE 101 mEq/L (97-110); CREATININE 1.1 mg/dL (0.6-1.0); GLOMERULAR FILTRATION RATE 50; GLUCOSE 82 mg/dL (70-100); MAGNESIUM 1.7 mg/dL (1.6-2.3); POTASSIUM 4.1 mEq/L (3.5-5.2); SODIUM 135 mEq/L (134-144)
[2017-05-15] MEDS: CALCIUM CARBONATE 500 MG CHEWABLE TAB PO SCH ×2 (07:59→14:10)
[2017-05-15 09:44] VITALS: BP 118/71; PULSE 76; RESP 16; TEMP 97.7; O2SAT 99
[2017-05-15 11:29] LABS: % IMMATURE GRANULYOCYTES 0.3 % (0.0-1.1); ABSOLUTE IMMATURE GRANULOCYTES 0.02 10^3/uL (0.00-0.10); ADD DIFF? NO; ADD MORPH? NO; ADD SCAN? NO; ATYPICAL LYMPHOCYTE FLAG 20 (0-99); FRAGMENT RBC FLAG 0 (0-99); HEMATOCRIT 31.1 % (38.0-47.0); LEFT SHIFT FLG 0 (0-99); LIPEMIA HEMOLYSIS FLAG 80 (0-99); MEAN CELL HEMOGLOBIN 31.4 pg (27.9-34.1); MEAN CELL HEMOGLOBIN CONCENTR. 32.2 g/dL (32.4-36.7); MEAN CELL VOLUME 97.8 fL (81.5-99.8); PLATELET CLUMPS FLAG 0 (0-99); PLATELET COUNT 338 10^3/uL (150-400); RED BLOOD CELL COUNT 3.18 10^6/uL (4.18-5.33); RED CELL DISTRIBUTION WIDTH 13.2 % (11.5-15.2)
--- NOTE | 2017-05-16 16:24 | GDS ---
[f rep st] DISCHARGE SUMMARY ADMITTING DIAGNOSIS: Debility, status post complications of left knee arthroplasty revision. DISCHARGE DIAGNOSIS: Debility, status post complications of left knee arthroplasty revision. OTHER DIAGNOSES: 1. Edema. 2. Hypomagnesemia. CONSULTATIONS: None. COMPLICATIONS: None. PROCEDURES: None. HISTORY/HOSPITAL COURSE: This patient was admitted from [facility]. She had been there for a revision of a total knee arthroplasty. There was an infection. She had a washout of the joint and was treated with antibiotics. She ultimately required a muscle flap and skin graft for closure. Her hospital stay was further complicated by encephalopathy with a possible aseptic meningitis. She had malnutrition and required tube feeding for part of her stay. There was a pneumoperitoneum of an unclear etiology, but presumably there was a gastric ulcer and she was treated with antibiotics as a precaution. There was acute kidney injury with a peak creatinine of 2.0; Lasix was held, and she had fluid administration. There was also paroxysmal atrial fibrillation and flutter. Eventually she was stabilized and was appropriate for inpatient rehabilitation. She did well in inpatient rehabilitation. Her initial functional independence measure was 56, which is consistent with needing considerable assistance in all aspects of mobility and activities of daily living at the halfway level. This was on 04/24/2017. She had steady improvement and by 05/11/2017, her functional independence measure was 106, which is consistent with independent living. She was independent in her room as of 05/10/2017, and at that time the goal which she had not accomplished was to be able to descend and then climb a 7 inch step which she needs to do to enter her home. She had subsequent improvement and was ready for discharge. She initially had massive edema bilaterally of the lower extremities, more so on the right side than the left. The left lower leg was wrapped in an Brayan wrap as part of her treatment for wound healing, which reduced her left lower extremity edema. She had adjustment of diuretics; given her low protein status , furosemide (which is protein bound) was discontinued, and she was started on bumetanide 1 mg daily. For 2 days she had additional metolazone, and she began to diurese. Overall during her stay, her weight went from 116.7 kg. to 99.4 kg , and her edema mostly resolved. Diuresis was improved with use of Brayan wrap on the right lower extremity as well as the left. Spironolactone was added, and ultimately she was able to maintain her weight and not regain fluid with bumetanide 0.25 mg daily and spironolactone 12.5 mg daily. She had electrolyte abnormalities with a low potassium. Further investigation revealed a very low magnesium and an elevated phosphate. PTH was normal and possibly inappropriately so; one would expect a higher PTH given the elevated phosphate. There also was hypocalcemia. She had oral and IV correction of magnesium, and it was hoped that these numbers would fully normalize with supplementation and with reduction of her diuretics. On the day of discharge, magnesium was 1.7 and had declined from 2.0 on the day before. Phosphate remained high at 6.9. Otherwise renal function and electrolytes were overall within normal limits. Creatinine was 1.1 and estimated GFR was 50. She was noted to have anemia. Iron studies were consistent with anemia of chronic disease. Initially, she had no improvement of her anemia. On 2016, hemoglobin was 8.4, and hematocrit was 26.2. She had improvement subsequently, and on 05/15/2017 hemoglobin was 10 and hematocrit was 31.1. Regarding protein calorie malnutrition, she had considerable improvement during her stay with a normal appetite. Regarding the anemia, she had inappropriately low reticulocytosis. She also had a positive stool Hemoccult. She continued on pantoprazole. Due to her history of paroxysmal atrial fibrillation, Apixaban was continued. OTHER LABORATORY AND STUDIES: During her stay she had a very minimally elevated D-dimer at 0.75 mg. this was not followed up with studies regarding possible thrombosis due to effectiveness of diuresis and no respiratory compromise or tachycardia. Liver function tests were overall within normal limits. Albumin had improved to 2.9 as of 04/27/2017. Iron studies revealed normal iron level at 46, TIBC was low at 177, and iron saturation was 26%. Vitamin B12 was normal at 4.28. Vitamin D level was normal at 30.2. Urine random magnesium on 05/13/2017 was less than 1.2, indicating no renal loss of magnesium. CONDITION UPON DISCHARGE: Good. ACTIVITY: Ad marlon. DIET: Regular. DATE OF NEXT APPOINTMENT: She will see her primary care provider, Flavia Watson MD, on 05/22/2017. She will be scheduling her own followups with the Orthopedics and Plastic surgery services at [facility] in [place]. She will have a cardiology followup in [place] to be scheduled by her as well, and a gastroenterology followup. MEDICATIONS AT DISCHARGE: 1. Oxycodone 5-10 mg p.o. q.4 hours p.r.n. 2. Spironolactone 12.5 mg p.o. daily. 3. Quetiapine 25 mg p.o. at bedtime. 4. Pantoprazole 20 mg p.o. b.i.d. 5. Multivitamin daily. 6. Aquaphor twice daily. 7. Magnesium oxide 400 mg p.o. t.i.d. 8. Calcium carbonate 500 mg p.o. t.i.d. 9. Bumetanide 0.25 mg p.o. daily. 10. Apixaban 5 mg p.o. b.i.d. 11. Acetaminophen 650 mg p.o. q.4 hours p.r.n. ISSUES TO BE ADDRESSED AT FOLLOWUP: 1. Functional status: She will continue physical and occupational therapies at home, and she can follow up with Dr. Watson regarding her progress. 2. Edema and hypomagnesemia: Advise repeat determination of a BMP and magnesium, and consider phosphorus and PTH as well. If she continues to have electrolyte abnormalities and inadequate PTH response, consider referral to Endocrinology for further evaluation regarding possible hypoparathyroidism. 3. Edema: Has improved greatly. Advised continuing regular weight checks and Brayan wraps bilaterally to the lower extremities as needed, depending on her edema. Etiology was not completely clear. Diastolic dysfunction might be contributing. She also had anasarca in the hospital and fluid resuscitation. 4. History of paroxysmal atrial fibrillation while she was very ill in the hospital. Continuing apixaban. She will follow up with Cardiology, and Cardiology can also consider whether there might be a component of heart failure contributing to her edema. 5. History of pneumoperitoneum, as well as hematochezia and anemia. She will follow up with Gastroenterology, and she should consider endoscopy. Copy requested to: Dr. Shaw Plastic Surgery [facility] /[id number]/MODL MTDD
== END 2017-05-15 15:40 | disposition home health service (06) | DRG 559 ==
LOC: BREH 15:33 → EEVIPCON 15:33 → BREH 05-10 12:06
PROVIDERS: ADMIT Physical Medicine & Rehabilitation; ATTEND Internal Medicine
PROC: F0636ZZ Communicative/Cognitive Integration Skills Treatment of Neurological System - Whole Body (ICD-10-PCS; principal; 2017-04-21)
PROC: F08Z7ZZ Vocational Activities and Functional Community or Work Reintegration Skills Treatment (ICD-10-PCS; principal; 2017-04-21)
PROC: F07M3ZZ Motor Function Treatment of Musculoskeletal System - Whole Body (ICD-10-PCS; principal; 2017-04-21)
PROC: 02HV33Z Insertion of Infusion Device into Superior Vena Cava, Percutaneous Approach (ICD-10-PCS; 2017-05-06)
DX: Z47.1 Aftercare following joint replacement surgery (principal); Z96.652 Presence of left artificial knee joint; E66.01 Morbid (severe) obesity due to excess calories; Z68.39 Body mass index [BMI] 39.0-39.9, adult; R41.89 Other symptoms and signs involving cognitive functions and awareness; R60.0 Localized edema; E43 Unspecified severe protein-calorie malnutrition; D64.89 Other specified anemias; E87.1 Hypo-osmolality and hyponatremia; I48.0 Paroxysmal atrial fibrillation; I48.92 Unspecified atrial flutter; K92.1 Melena; E83.42 Hypomagnesemia; I10 Essential (primary) hypertension; K66.8 Other specified disorders of peritoneum; E78.5 Hyperlipidemia, unspecified; Z96.651 Presence of right artificial knee joint; Z79.01 Long term (current) use of anticoagulants
CPT/HCPCS: 82607-90; 84134-90; 97110-GO; 97110-GP; 97112-GO; 97112-GP; 97116-GP; 97140-GO; 97163-GP; 97166-GO; 97530-GO; 97530-GP; 97535-GO; 97542-GP; C1751; J2997

== ENCOUNTER 2017-09-12 10:43 | Day surgery (SDC) | payer OTHER ==
[2017-09-12] MEDS ORDERED: LIDOCAINE 1% 300 MG/30 ML SDV SC ONE (10:47)
[2017-09-12] MEDS ORDERED: LIDOCAINE 1% 300 MG/30 ML SDV ONE (11:04)
--- NOTE | 2017-09-12 15:38 | PDHPUP ---
History & Physical Update H&P update statement: This history and physical update is based on an assessment of the patient which was completed after admission or registration (within 24 hours), but prior to the surgery/procedure. H&P update: H&P reviewed & patient examined, no change in patient's condition since H&P completed
--- NOTE | 2017-09-12 17:15 | EPPROC ---
Electrophysiology Procedure Note: LINQ monitor was placed in L parasternal area under sterile precautions and standard technique. No complications. Indication - to assess for atrial fibrillation. Patient Problems: Problems Problem Status Onset Palpitations Acute VRE (vancomycin-resistant Enterococci) Acute ~04/09/17 S/P total knee arthroplasty Acute Swelling of lower extremity Acute Morbid obesity Acute
== END 2017-09-12 16:30 | disposition home or self-care (01) ==
LOC: FCATH 10:43
PROVIDERS: ATTEND Internal Medicine Cardiovascular Disease
PROC: 0JH632Z Insertion of Monitoring Device into Chest Subcutaneous Tissue and Fascia, Percutaneous Approach (ICD-10-PCS; principal; 2017-09-12)
DX: I48.91 Unspecified atrial fibrillation (principal); I10 Essential (primary) hypertension; E78.00 Pure hypercholesterolemia, unspecified; E66.01 Morbid (severe) obesity due to excess calories; Z79.01 Long term (current) use of anticoagulants
CPT/HCPCS: C1764

== ENCOUNTER 2017-10-18 14:03 | Emergency (ER) | payer OTHER ==
--- NOTE | 2017-10-18 14:27 | EDPHY ---
H & P Stated Complaint: L Leg Pain Source: Patient Exam Limitations: No limitations - Personal History Current Tetanus Diphtheria and Acellular Pertussis (TDAP): Yes Tetanus Vaccine Date: 2014 - Medical/Surgical History Hx Asthma: No Hx Chronic Respiratory Disease: No Hx Diabetes: No Hx Cardiac Disease: No Hx Renal Disease: No Hx Cirrhosis: No Hx Alcoholism: No Hx HIV/AIDS: No Hx Splenectomy or Spleen Trauma: No Other PMH: renal hypertension, 7 spinal surgeries,2 knee replacements. Atrial Fib, hyperlipidemia, non functioning R kidney, anemia, sepsis - Social History Smoking Status: Never smoked Time Seen by Provider: 10/18/17 14:26 HPI/ROS: HPI: This is a 62-year-old female who presents with Chief Complaint: L Leg Pain Location: Left knee Quality: Pain Duration: 1-2 hr prior to arrival Signs and Symptoms: No bleeding, no radiation, no numbness, no weakness, no tingling, no incontinence, + decreased range of motion, + swelling, + pain Timing: Rapid onset Severity: Moderate- Severe Context: Patient has a history of bilateral knee replacements 12-15 years ago, status post ossification procedure, with wound dehiscence status post flat requiring 4 months of wound treatment followed by Dr. Champagne, orthopedics, at [facility] with rapid onset in the last 1-2 hours of left knee redness; warmth; stiffness. Pain worsened with range of motion. Accompanied by chills. Denies any recent trauma/injury. Patient had a complicated hospitalization in February with 1 month of delirium and encephalopathy etiology toxic. Modifying Factors: None Comment: ROS: see HPI Constitutional: No fever, + chills, no weight loss Eyes: No blurred vision Respiratory: No shortness of breath, no cough Cardiovascular: No chest pain Gastrointestinal: No nausea, no vomiting no diarrhea Genitourinary: No dysuria Extremities: No myalgias Neurologic: No weakness, no numbness Skin: No rashes Hematologic: No bruising, no bleeding MEDICAL/SURGICAL/SOCIAL HISTORY: Medical/surgical history: renal hypertension, 7 spinal surgeries, 2 knee replacements, Atrial Fib, hyperlipidemia, non functioning R kidney, anemia, sepsis Social history: Employed at [employer]. CONSTITUTIONAL: Well-developed well-nourished adult white female, awake and alert, no obvious distress HEENT: Atraumatic and normocephalic. NECK: supple, no midline tenderness, flexion 45 degrees, extension 45 degrees, right and left lateral flexion 45 degrees. No meningismus. Cardiovascular: Normal S1/S2, regular rate, regular rhythm, without murmur rub or gallop. PULMONARY/CHEST: Symmetrical and nontender. no crepitus. Clear to auscultation bilaterally. Good air movement. No accessory muscle usage. ABDOMEN: Soft, nondistended, nontender, no ecchymosis. PELVIC: no pain with rocking; bilateral hips flexion 125 degrees, extension 30 degrees, with no pain internal rotation and no pain external rotation. BACK: No midline tenderness, no paraspinous spasm, deep tendon reflexes 2/2, no pain with straight leg raise EXTREMITIES: 2/2 pulses, strength 5/5, left KNEE: Remote vertical incision; well-approximated; moderate effusion/erythema/warmth, mild medial and lateral joint line tenderness, full extension to 180, flexion to 90. No pain with varus and valgus exam. No pain with anterior drawer or posterior drawer test. DIP/PIP/MCP flexion/extension intact with good light touch sensation. no deformities, no clubbing, no cyanosis or edema. Negative Homans sign. NEUROLOGICAL: no focal neuro deficits. GCS 15. Light touch sensation intact. SKIN: Warm and dry, no erythema. no rash. Good capillary refill. (Carmita Schwab) Constitutional: Initial Vital Signs Temperature (C) 37.3 C 10/18/17 14:15 Heart Rate 110 H 10/18/17 14:15 Respiratory Rate 18 10/18/17 14:15 Blood Pressure 112/68 10/18/17 14:15 O2 Sat (%) 97 10/18/17 14:15 O2 Delivery Mode Nasal Cannula O2 (L/minute) 2 Allergies/Adverse Reactions: No Known Allergies Allergy (Unverified 05/01/17 16:33) Home Medications: Medication Instructions Recorded Acetaminophen [Tylenol 325mg (*)] 650 mg PO Q4HRS PRN tab 05/14/17 Alteplase [Cathflo Activase 2 mg 2 mg IVP PRN PRN #5 vial 05/14/17 (*)] Apixaban [Eliquis] 5 mg PO BID #60 tab 05/14/17 Bumetanide [Bumex (*)] 0.25 mg PO DAILY #30 tab 05/14/17 Calcium Carbonate [Tums 500MG (*)] 500 mg PO TID #90 tab.chew 05/14/17 Magnesium Oxide [Magnesium Oxide 400 mg PO TID #90 tab 05/14/17 400 mg (*)] Mineral Oil/Pet Hy-Phl [Aquaphor 1 christine TP BID jar 05/14/17 Ointment (*)] Multivitamins [Multivitamin (*)] 1 each PO DAILY tab 05/14/17 Pantoprazole Sodium [Protonix 40mg 20 mg PO BID #60 tab 05/14/17 (*)] QUEtiapine FUMARATE [Seroquel 25 25 mg PO HS #30 tab 05/14/17 mg (*)] Spironolactone [Aldactone 25 MG 12.5 mg PO DAILY 30 Days #15 tab 05/15/17 (*)] oxyCODONE IR [Oxycodone Ir (*)] 5 - 10 mg PO Q4 PRN #15 tab 05/15/17 Medical Decision Making - Diagnostics Imaging Results: Imaging Impressions Knee X-Ray 10/18/17 14:33 Impression: Postsurgical changes of left total knee arthroplasty. Lateral subluxation and lateral tilt to the patella. Suprapatellar joint effusion. Prepatellar bursitis and contusions with soft tissue calcification or radiopaque debris. PICC Line Insertion 10/18/17 15:24 Impression: Successful right upper extremity PICC placement. The catheter may be used immediately. ED Course/Re-evaluation: Labs, blood culture, lactic acid, IV fluids, IV medications, oral medications, left knee x-ray ordered Given 3 L normal saline, p.o. Percocet x 2 The x-ray my read shows effusion; hardware in place; calcification ED decision to consult for admission as concern for left knee joint infection with hardware involvement and/or sepsis. 1500: Spoke with Dr. Champagne who kindly agrees to accept patient for transfer and further care. He agrees to hold off on the antibiotics as if he has to go in he was to culture the hardware. Requests that patient's labs be sent and x- ray images be put on disc. Advised to call the access line for transfer at [phone]. 1525: contacted by RN. poor peripheral access. PICC line consult. 1535: Access line called back and gave bed assignment at [facility]; [facility] Bed 1 1600: WBC 13 K with left shift; Lactic acidosis; normal saline 30 mL/kg or 2.6 L ordered; CRP 65; creatinine 1.1 (baseline) 1640: Reassessed patient; PICC team not available until 1730. peripheral access 3rd attempt obtained by aide. 1 g of vancomycin ordered due to extended length of time in the emergency room and time to transfer. 1658: Called access line to give update. repeat vitals stable. Transport ETA now 1800 to [facility]. Only has peripheral access. This patient was seen under the supervision of my primary supervising physician. I evaluated care for this patient independently. Discussed this patient with Dr. Taylor who did see the patient. (Carmita Schwab) This patient was seen and examined by me. She presents with left knee pain and erythema, concerning for joint infection. On exam, Left knee-erythema, warmth and tenderness over the lower aspect of the anterior knee, joint effusion present, pain with ROM. I agree with the assessment and plan. She meets the severe sepsis protocol, with elevated lactate. IV fluids per the sepsis protocol initiated. Repeat lactate is 1.6. PICC line was placed prior to transport. BP normal throughout ED stay. (Etta Taylor) Differential Diagnosis: Differential diagnosis includes but is not limited to cellulitis, osteomyelitis , hardware infection, sepsis. (Carmita Schwab) - Data Points Laboratory Results: Laboratory Results 10/18/17 15:45 10/18/17 15:45 10/18/17 10/18/17 10/18/17 16:59 15:45 15:45 WBC 13.38 10^3/uL H 10^3/uL (3.80-9.50) RBC 3.78 10^6/uL L 10^6/uL (4.18-5.33) Hgb 12.0 g/dL L g/dL (12.6-16.3) Hct 35.8 % L % (38.0-47.0) MCV 94.7 fL fL (81.5-99.8) MCH 31.7 pg pg (27.9-34.1) MCHC 33.5 g/dL g/dL (32.4-36.7) RDW 13.4 % % (11.5-15.2) Plt Count 208 10^3/uL 10^3/uL (150-400) MPV 10.3 fL fL (8.7-11.7) Neut % (Auto) 93.1 % H % (39.3-74.2) Lymph % (Auto) 2.6 % L % (15.0-45.0) [place] % (Auto) 3.4 % L % (4.5-13.0) Eos % (Auto) 0.0 % L % (0.6-7.6) Baso % (Auto) 0.5 % % (0.3-1.7) Nucleat RBC Rel Count 0.0 % % (0.0-0.2) Absolute Neuts (auto) 12.45 10^3/uL H 10^3/uL (1.70-6.50) Absolute Lymphs (auto) 0.35 10^3/uL L 10^3/uL (1.00-3.00) Absolute Monos (auto) 0.45 10^3/uL 10^3/uL (0.30-0.80) Absolute Eos (auto) 0.00 10^3/uL L 10^3/uL (0.03-0.40) Absolute Basos (auto) 0.07 10^3/uL 10^3/uL (0.02-0.10) Absolute Nucleated RBC 0.00 10^3/uL 10^3/uL (0-0.01) Immature Gran % 0.4 % % (0.0-1.1) Immature Gran # 0.06 10^3/uL 10^3/uL (0.00-0.10) ESR 29 MM/HR MM/HR (0-30) VBG Lactic Acid 1.6 mmol/L D mmol/L (0.7-2.1) Sodium 134 mEq/L L mEq/L (135-145) Potassium 4.8 mEq/L mEq/L (3.5-5.2) Chloride 95 mEq/L L mEq/L (97-110) Carbon Dioxide 22 mEq/l mEq/l (22-31) Anion Gap 17 mEq/L H mEq/L (8-16) BUN 25 mg/dL H mg/dL (7-23) Creatinine 1.1 mg/dL H mg/dL (0.6-1.0) Estimated GFR 50 Glucose 124 mg/dL H mg/dL (70-100) Calcium 9.5 mg/dL mg/dL (8.5-10.4) C-Reactive Protein 65.5 mg/L H mg/L (<10.0) 10/18/17 15:45 WBC RBC Hgb Hct MCV MCH MCHC RDW Plt Count MPV Neut % (Auto) Lymph % (Auto) [place] % (Auto) Eos % (Auto) Baso % (Auto) Nucleat RBC Rel Count Absolute Neuts (auto) Absolute Lymphs (auto) Absolute Monos (auto) Absolute Eos (auto) Absolute Basos (auto) Absolute Nucleated RBC Immature Gran % Immature Gran # ESR VBG Lactic Acid 3.4 mmol/L H mmol/L (0.7-2.1) Sodium Potassium Chloride Carbon Dioxide Anion Gap BUN Creatinine Estimated GFR Glucose Calcium C-Reactive Protein Medications Given: Discontinued Medications Acetaminophen (Tylenol) 325 mg PO EDNOW ONE Stop: 10/18/17 17:11 Last Admin: 10/18/17 17:29 Dose: 325 mg Sodium Chloride (Ns) 1,000 mls @ 0 mls/hr IV ONCE ONE; Wide Open PRN Reason: Protocol Stop: 10/18/17 14:33 Last Admin: 10/18/17 16:45 Dose: 1,000 mls Sodium Chloride (Ns) 1,000 mls @ 0 mls/hr IV EDNOW ONE; Wide Open PRN Reason: Protocol Stop: 10/18/17 15:09 Last Admin: 10/18/17 16:45 Dose: 1,000 mls Sodium Chloride (Ns) 600 mls @ 0 mls/hr IV EDNOW ONE; Wide Open PRN Reason: Protocol Stop: 10/18/17 16:06 Last Admin: 10/18/17 16:45 Dose: 600 mls Vancomycin/Sodium Chloride (Vancomycin 1 Gm (Premix)) 250 mls @ 250 mls/hr IV EDNOW ONE PRN Reason: Protocol Stop: 10/18/17 17:37 Last Admin: 10/18/17 17:50 Dose: 250 mls Sodium Chloride (Ns) 2,600 mls @ 5,200 mls/hr 30 ml/kg infuse over 30 min ( 2600 ml) IV EDNOW ONE PRN Reason: Protocol Stop: 10/18/17 17:43 Last Admin: 10/18/17 18:08 Dose: Not Given Ibuprofen (Motrin) 400 mg PO EDNOW ONE Stop: 10/18/17 17:26 Last Admin: 10/18/17 17:29 Dose: 400 mg Oxycodone HCl (Oxycodone Ir) 5 mg PO EDNOW ONE Stop: 10/18/17 19:46 Last Admin: 10/18/17 19:45 Dose: 5 mg Oxycodone/Acetaminophen (Percocet 5/325) 2 tab PO EDNOW ONE Stop: 10/18/17 15:09 Last Admin: 10/18/17 15:58 Dose: 2 tab Departure - Departure Disposition: Acute Care [facility] Clinical Impression: Infection of prosthetic left knee joint Qualifiers: Encounter type: initial encounter Qualified Code(s): T84.54XA - Infection and inflammatory reaction due to internal left knee prosthesis, initial encounter Sepsis Qualifiers: Sepsis type: sepsis due to unspecified organism Qualified Code(s): A41.9 - Sepsis, unspecified organism CKD (chronic kidney disease) Qualifiers: Chronic kidney disease stage: stage 3 (moderate) Qualified Code(s): N18.3 - Chronic kidney disease, stage 3 (moderate) Condition: Fair
[2017-10-18] MEDS ORDERED: NS 1,000 ML IV ONE ×2 (14:32→15:08)
[2017-10-18] MEDS ORDERED: OXYCODONE/APAP 5/325 TAB PO ONE (15:08)
[2017-10-18] MEDS ORDERED: ALTEPLASE 2 MG VIAL IVP PRN (15:24)
[2017-10-18 16:04] LABS: PLATELET COUNT 208 10^3/uL (150-400)
[2017-10-18] MEDS ORDERED: NS 600 ML IV ONE (16:05)
[2017-10-18] MEDS ORDERED: IBUPROFEN 800 MG TAB PO ONE (16:38)
[2017-10-18] MEDS ORDERED: VANCOMYCIN HCL/NORMAL SALINE 250 ML IV ONE (16:38)
[2017-10-18] MEDS ORDERED: ACETAMINOPHEN 325 MG TAB PO ONE (17:10)
[2017-10-18] MEDS ORDERED: NS 2,600 ML IV ONE (17:14)
[2017-10-18] MEDS ORDERED: IBUPROFEN 200 MG TAB PO ONE ×2 (17:24→17:25)
[2017-10-18] MEDS ORDERED: oxyCODONE IR 5 MG TAB ONE (19:44)
[2017-10-18] MEDS ORDERED: oxyCODONE IR 5 MG TAB PO ONE (19:45)
[2017-10-18 19:52] VITALS: BP 102/66; PULSE 95; RESP 18; TEMP 99; O2SAT 95
== END 2017-10-18 19:48 | disposition short-term general hospital (02) ==
DX: T84.54XA Infection and inflammatory reaction due to internal left knee prosthesis, initial encounter (principal); A41.9 Sepsis, unspecified organism; N18.3 Chronic kidney disease, stage 3 (moderate); E86.9 Volume depletion, unspecified; Y79.2 Prosthetic and other implants, materials and accessory orthopedic devices associated with adverse incidents
CPT/HCPCS: 73564; 77001; 96361; 96365; 99285; C1751; J3370

== ENCOUNTER → 2018-03-02 | Outpatient (CLI) | payer OTHER | LOC: CIMAGING 12:40 | PROVIDERS: ATTEND Internal Medicine Nephrology | DX: R93.429 Abnormal radiologic findings on diagnostic imaging of unspecified kidney (principal); N26.1 Atrophy of kidney (terminal); N20.0 Calculus of kidney | CPT/HCPCS: 76770-PO ==

== ENCOUNTER 2018-03-16 09:53 | Day surgery (SDC) | payer OTHER ==
[2018-03-16] MEDS ORDERED: MEPERIDINE 25 MG/ML SYR IVP PRN (10:08)
[2018-03-16] MEDS ORDERED: fentaNYL 100 MCG/2 ML INJ IVP PRN (10:08)
[2018-03-16] MEDS ORDERED: MIDAZOLAM 2 MG/2 ML VIAL IVP PRN (10:08)
[2018-03-16] MEDS ORDERED: NALOXONE HCL 0.4 MG/ML INJ IVP PRN (10:08)
[2018-03-16] MEDS ORDERED: FLUMAZENIL 0.5 MG/5 ML MDV IVP PRN (10:08)
[2018-03-16] MEDS ORDERED: hydrALAZINE 20 MG/ML VIAL IVP PRN (10:08)
[2018-03-16] MEDS ORDERED: NS 1,000 ML IV SCH (10:15)
[2018-03-16 10:51] LABS: PLATELET COUNT 363 10^3/uL (150-400)
[2018-03-16 11:00] LABS: INR 0.95 (0.83-1.16); PROTIME(PATIENT) 12.9 SEC (12.0-15.0)
--- NOTE | 2018-03-16 11:41 | PDPROPOC ---
Sedation Plan of Care Sedation Plan of Care: vital signs stable, mental status noted, patient educated of risks, benefits, alternatives, patient can tolerate sedation ASA Classification: ASA 2 Planned drugs: fentanyl, midazolam Mallampati Score: Class 1 Mallampati Reference Image: Patient passed 3-3-2 rule?: Yes
--- NOTE | 2018-03-16 11:41 | PDGENHP ---
History & Physical Chief Complaint: CHRONIC RENAL DZ History of Present Illness: UNKNOWN CAUSE. BIOPSY NEEDED. Pertinent Past, Social, Family History: N/A. Relevant Physical Exam: NO PAIN OR DISCOMPFORT. Cardiorespiratory Assessment: RRR, CTA
[2018-03-16] MEDS ORDERED: LIDOCAINE 1% 300 MG/30 ML SDV ONE (12:15)
[2018-03-16] MEDS ORDERED: fentaNYL 100 MCG/2 ML INJ ONE (12:42)
[2018-03-16] MEDS ORDERED: MIDAZOLAM 2 MG/2 ML VIAL ONE (12:43)
[2018-03-16] MEDS ORDERED: ONDANSETRON 4 MG/2 ML VIAL IVP PRN (13:55)
[2018-03-16] MEDS ORDERED: OXYCODONE/APAP 5/325 TAB PO PRN (13:55)
[2018-03-16] MEDS ORDERED: ACETAMINOPHEN 325 MG TAB PO PRN (13:55)
--- NOTE | 2018-03-16 13:57 | PDRADPN ---
Radiology Procedure Note Date of Procedure: 03/16/18 Radiologist: Dee Romero Anesthesia: IV Sedation Pre-op Diagnosis: renal insufficiency Post-op Diagnosis: same Indication: sampling needed Procedure: CT guided renal biopsy Finding(s): cores obtained Inf/Abcess present in the surg proc area at time of surgery?: No
--- NOTE | 2018-03-16 18:10 | SOAPPROG ---
SOAP Progress Note Assessment/Plan: Assessment: stable post renal biopsy. Plan: d/c when ride arrives. 03/16/18 18:09 Subjective: no complaints. tolerating po. would like to wait till next set of labs for daughter to cone picker. Objective: Vital Signs Temp Pulse Resp BP Pulse Ox 37.5 C 70 16 126/74 H 98 03/16/18 10:51 03/16/18 10:51 03/16/18 17:00 03/16/18 17:00 03/16/18 16:30 Laboratory Results 03/16/18 16:30 03/16/18 10:30 03/15/18 03/16/18 03/17/18 05:59 05:59 05:59 Intake Total 100 Balance 100 PT 12.9 SEC (12.0-15.0) 03/16/18 10:30 INR 0.95 (0.83-1.16) 03/16/18 10:30 labs noted. site clean. ICD10 Worksheet Patient Problems: Problems Problem Status Onset Morbid obesity Acute Palpitations Acute S/P total knee arthroplasty Acute Swelling of lower extremity Acute VRE (vancomycin-resistant Enterococci) Acute ~04/09/17
[2018-03-16 20:51] VITALS: BP 113/64
== END 2018-03-16 19:22 | disposition home or self-care (01) ==
LOC: FIMAGING 09:53
PROVIDERS: ATTEND Internal Medicine Nephrology
PROC: 0TB13ZX Excision of Left Kidney, Percutaneous Approach, Diagnostic (ICD-10-PCS; principal; 2018-03-16 12:25)
DX: N18.9 Chronic kidney disease, unspecified (principal); D63.1 Anemia in chronic kidney disease; N17.8 Other acute kidney failure; E87.2 Acidosis; E87.6 Hypokalemia
CPT/HCPCS: 88305-90; 88313-90; 88346-90; 88348-90; J2250; J2310; J3010

== ENCOUNTER → 2018-04-27 | Outpatient (CLI) | payer OTHER | LOC: FIMAGING 15:09 | PROVIDERS: ATTEND Internal Medicine | DX: Z01.818 Encounter for other preprocedural examination (principal); J44.9 Chronic obstructive pulmonary disease, unspecified; M25.569 Pain in unspecified knee; N18.9 Chronic kidney disease, unspecified ==

== ENCOUNTER 2018-05-04 16:21 | Inpatient (IN) | payer OTHER ==
[2018-05-04] MEDS ORDERED: CYCLOBENZAPRINE 10 MG TAB PO PRN (17:38)
[2018-05-04] MEDS ORDERED: ONDANSETRON DISINTEGRATING 4 MG TAB PO PRN ×2 (17:38→19:40)
[2018-05-04] MEDS ORDERED: HYDROmorphONE/DILAUDID 2 MG TAB PO PRN ×2 (17:38→18:34)
[2018-05-04] MEDS ORDERED: BISACODYL 10 MG SUPP PR PRN ×2 (17:38→19:37)
--- NOTE | 2018-05-04 19:43 | GHP ---
POST ADMISSION PHYSICIAN EVALUATION AND REHABILITATION TREATMENT PLAN DATE OF ADMISSION: 05/04/2018 DATE OF EVALUATION: 05/04/2018 TIME OF EVALUATION: 1750 REFERRING FACILITY: [facility]. REFERRING PHYSICIAN: Dr. Champagne IMPAIRMENT GROUP: [id number]. DATE OF ONSET: 05/01/2018. CONSULTING PHYSICIANS: She was managed also by the Hospitalist Service. REHABLITATION DIAGNOSIS: Debility status post total knee arthroplasty. ETIOLOGIC DIAGNOSIS: Unilateral knee replacement. DATE OF SURGERY: 05/01/2018. HISTORY OF PRESENT ILLNESS: This patient has a history of a left total knee arthroplasty which was complicated by an infection with beta-hemolytic strep. She subsequently needed to have removal of hardware and placement of an antibiotic spacer. She has been very limited in her mobility since that was done in November of this year. Ultimately, she returned to the hospital for a left total knee arthroplasty. She had an intraoperative fracture of the left periprosthetic femur and so she is toe-touch weightbearing on the left lower extremity. She had postoperative anemia and required a transfusion. She has chronic renal failure stage 4 and is on erythropoietin every 2 weeks. She was medically stabilized and ready for transfer to inpatient rehabilitation. OTHER STUDIES AND LABS: I do not have a full list. Hemoglobin improved from 7.7 prior to transfusion on 05/02/2018, to 8.8 after transfusion. Her baseline creatinine is 2.5 and on the day of discharge, creatinine was 2.11. She had hypomagnesemia and hypokalemia. The potassium was repleted to normal. PRECAUTIONS: She is a fall risk, and she has isolation precautions with VRE in her urine last summer, but less than a year ago. She has orthopedic precautions with toe-touch weightbearing on the left lower extremity. ACTIVE COMORBIDITIES: She has no active tier 1, tier 2, or tier 3 comorbidities. PAST MEDICAL HISTORY: 1. Chronic renal insufficiency stage IV with a history of tubular interstitial nephritis. 2. Encephalopathy with possible aseptic meningitis. 3. Urinary tract infection with vancomycin-resistant Enterococcus which was asymptomatic and not treated with antibiotics. She had a Colón catheter when she developed the infection. 4. Paroxysmal atrial fibrillation. 5. Anasarca. 6. Malnutrition. 7. Bilateral footdrop with neuropathy which she reports was a consequence of her . 8. History of morbid obesity, but she has had considerable weight loss. 9. History of alcohol abuse and dependence. 10. Anemia. 11. Hypertension. 12. Dyslipidemia. 13. Nonfunctional right kidney due to history of vesicoureteral reflux. 14. Adjustment disorder with depressed mood. PAST SURGICAL HISTORY: 1. section. 2. Bilateral total knee arthroplasty. 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 Wound infection and eventual placement of antibiotic spacer. 3. Laminectomy and foraminotomy, L1 through S1. 4. Tonsillectomy. 5. Bilateral ureteral reimplantation. PRE-HOSPITAL MEDICATIONS: I do not have a list. ADMISSION MEDICATIONS: 1. Acetaminophen 1000 mg p.o. q.8 hours. 2. Apixaban 2.5 mg p.o. twice daily. 3. Bisacodyl 10 mg [place] daily p.r.n. 4. Calcium carbonate 1000 mg p.o. at bedtime. 5. Cyclobenzaprine 10 mg p.o. three times daily p.r.n. 6. Ferrous sulfate 325 mg p.o. daily. 7. Hydromorphone 2-4 mg q.4 hours p.r.n. 8. Magnesium oxide 200 mg p.o. daily. 9. Multivitamin 1 p.o. daily. 10. Ondansetron 4 mg q.8 hours p.r.n. 11. Polyethylene glycol 17 g p.o. daily. 12. Potassium chloride 20 mEq p.o. daily. 13. Quetiapine 25 mg p.o. at bedtime. 14. Senna/docusate 1 p.o. daily. 15. Sertraline 100 mg p.o. daily. 16. Sodium bicarbonate 650 mg p.o. daily. 17. Tramadol 50 mg p.o. q.8 hours. ALLERGIES: There are no known drug allergies, though she may have had an adverse reaction with delirium to amiodarone. PSYCHOSOCIAL HISTORY: She lives in her own home with family, in a single-level home with 2 steps to enter. She has worked as an RN. She uses occasional alcohol. FAMILY HISTORY: Noncontributory. REVIEW OF SYSTEMS: She has pain to palpation of the medial left knee, and she has some pain with movement of the leg and knee. She has slept well for the last 2 nights, however. Pain was not interfering. She has been on an infusion of ropivacaine into the knee joint which was discontinued today prior to her discharge. She denies recent weight change, though she has had considerable weight loss over the last several years. She denies fevers or chills, feeling hot or cold, cough or dyspnea, nausea or vomiting. She has an improved appetite. She has constipation for 5 days, but notes flatulence and denies abdominal pain. She notes some swelling to the left knee, but otherwise denies joint pain or joint swelling. She denies urinary frequency or dysuria. She is in good spirits. Otherwise, a 10-point review of systems is negative. PHYSICAL EXAMINATION: VITAL SIGNS: Blood pressure is 112/72, heart rate is 66 , respiratory rate is 16, oxygen saturation is 98% on room air, temperature is 37. Her weight is 79.8 kg for a body mass index of 27.6. GENERAL: This is an overweight-appearing woman sitting up in a wheelchair, dressed in street clothes , cooperative and in no acute distress. HEENT: Extraocular movements are intact. Pupils are equal, round, reactive to light. Mucous membranes are moist. Dentition is in good condition. NECK: Supple. HEART: There is a regular rate and rhythm with no murmurs, rubs, or gallops. LUNGS: Clear to auscultation bilaterally. ABDOMEN: Soft, nontender, nondistended with hypoactive bowel sounds and no hepatosplenomegaly. EXTREMITIES: There is no cyanosis or clubbing. There is edema to the left lower extremity and around the left knee joint. She is tender to palpation on the medial distal left knee joint. NEUROLOGIC: She is alert and oriented x3. Cranial nerves 2-12 are grossly intact. There is no focal weakness though she was not tested for footdrop and sensation is intact to light touch. CURRENT LEVEL OF FUNCTION PER THE PRE-ADMISSION SCREEN: Regarding diet, feeding , and swallowing, she is on a regular diet. She needed assistance for bathing and toileting. She needed standby assist for bed mobility with the head of the bed elevated. Transfers required minimal assist for [id number] with the bed height raised. She used a front-wheeled walker. Balance required contact guard. Endurance was fair. She ambulated with minimal assist and a front- wheeled walker. She had difficulty maintaining toe-touch weightbearing and needed increased assistance from therapy and voice cues to take steps from bed to chair. She was noted to have a partial deficit in the left lower extremity to sensation and proprioception, and she had difficulty lifting the left lower extremity to maintain her weightbearing precautions. On today's exam, there is no significant change from the pre-admission screen. IMPRESSION: This is a 63-year-old woman with multiple medical problems and prolonged course of issues regarding her left total knee arthroplasty including heterotopic ossification and surgery for that, infection and eventually septic joint requiring hardware removal and antibiotic spacer. Finally, she was able to have the spacer removed and total knee joint replacement. She suffered a periprosthetic femur fracture during surgery, and is now touchdown weightbearing on the left lower extremity. She has had pain control with an intra-articular infusion of ropivacaine which was discontinued today. The ropivacaine may act for as long as 15 hours so she may have increased pain overnight tonight. Otherwise for pain control, will continue tramadol and hydromorphone. It is unclear to me the role of cyclobenzaprine, but she can try that on a p.r.n. basis. She has constipation, and is prescribed appropriate laxatives. Otherwise, despite multiple medical complexities, she is overall stable and ready to participate in inpatient rehabilitation. Her goal is to complete a rehabilitation stay and then return home with her family and home health care as needed. For a safe discharge, it is anticipated that she will achieve modified independence for grooming, dressing, transfers, and ambulation with the least restrictive device. She will likely require assistance for bathing for safety and for household management, shopping, and possibly meal prep. She will have therapy with physical therapy and occupational therapy for 90 minutes per day for each discipline on 5-7 days of the week. Her expected duration of stay is 7-10 days. It is anticipated that upon discharge she will continue to benefit from home health services including nursing, occupational therapy, and physical therapy. PLAN: 1. Debility status post total knee arthroplasty and periprosthetic femur fracture with a prolonged history of inactivity due to hardware removal from prior total knee and presence of an antibiotic spacer. PT and OT to optimize mobility and activities of daily living toward the modified independent level. 2. Pain management. Continue hydromorphone at 2-4 mg q.4 hours p.r.n. I will change the frequency to q.3 hours p.r.n., and continue tramadol and cyclobenzaprine. She will have serial assessment of pain. If she has difficulty with sleep overnight due to pain, consider initiation of long-acting morphine at bedtime. 3. Chronic renal insufficiency stage IV. This has been stable through her hospitalization and surgery. Will recheck labs on May 08, after the holiday weekend. 4. Anemia, status post transfusion. We will recheck labs on May 08. Continue ferrous sulfate. Continue erythropoietin though I do not see that currently ordered. Will investigate further regarding her dose and timing. She says she receives it every 2 weeks. 5. Hypokalemia and hypomagnesemia. Continue supplements and recheck labs on May 08. 6. Paroxysmal atrial fibrillation. Continue apixaban which will also suffice for DVT prophylaxis. 7. Constipation. With the recent onset of flatulence and with the returned appetite, expect that her bowel movements will return. Continue laxatives and consider titrating if necessary. 8. Adjustment disorder with depressed mood. She has benefitted from the prescription of sertraline, and this will be continued. 9. Prophylaxis. Apixaban will suffice for DVT prophylaxis. She has no need for GI prophylaxis. 10. Followup. She will have followup with orthopedic surgeon, Dr. Joao Champagne, soon after her discharge from inpatient rehabilitation. She will follow up with her primary care provider, Dr. Watson, after her discharge, and she will follow up with Nephrology, Dr. Garcia, per her prior visit schedule before her hospitalization. /[id number]/MODL MTDD
[2018-05-04] MEDS ORDERED: APIXABAN 2.5 MG TAB PO SCH (21:00)
[2018-05-04] MEDS ORDERED: CALCIUM CARBONATE 500 MG CHEWABLE TAB PO SCH (21:00)
[2018-05-04] MEDS ORDERED: QUEtiapine FUMARATE 25 MG TAB PO SCH (21:00)
[2018-05-04] MEDS: CALCIUM CARBONATE 500 MG CHEWABLE TAB PO SCH (21:35)
[2018-05-04] MEDS: ACETAMINOPHEN 500 MG TAB PO SCH (21:35)
[2018-05-04] MEDS: HYDROmorphONE/DILAUDID 2 MG TAB PO PRN (21:36)
[2018-05-04] MEDS: traMADol 50 MG TAB PO SCH (21:37)
[2018-05-04] MEDS: APIXABAN 2.5 MG TAB PO SCH (21:37)
[2018-05-04] MEDS: QUEtiapine FUMARATE 25 MG TAB PO SCH (21:37)
[2018-05-04] MEDS ORDERED: traMADol 50 MG TAB PO SCH (22:00)
[2018-05-04] MEDS ORDERED: ACETAMINOPHEN 500 MG TAB PO SCH (22:00)
[2018-05-05] MEDS: HYDROmorphONE/DILAUDID 2 MG TAB PO PRN ×4 (02:24→21:08)
[2018-05-05] MEDS: ACETAMINOPHEN 500 MG TAB PO SCH ×3 (06:04→22:27)
[2018-05-05] MEDS: traMADol 50 MG TAB PO SCH ×3 (06:04→22:27)
[2018-05-05] MEDS: FERROUS SULFATE 325 MG TAB PO SCH (07:43)
[2018-05-05] MEDS: SERTRALINE HCL 100 MG TAB PO SCH (07:44)
[2018-05-05] MEDS: POTASSIUM CL 20 MEQ TAB PO SCH (07:45)
[2018-05-05] MEDS: MAGNESIUM OXIDE 400 MG TAB PO SCH (07:45)
[2018-05-05] MEDS: MULTIVITAMINS 1 EACH TAB PO SCH (07:45)
[2018-05-05] MEDS: APIXABAN 2.5 MG TAB PO SCH ×2 (07:46→21:09)
[2018-05-05] MEDS: SENNOSIDES/DOCUSATE SODIUM TAB PO SCH (07:46)
[2018-05-05] MEDS: SODIUM BICARBONATE 650 MG TAB PO SCH (07:47)
[2018-05-05] MEDS: POLYETHYLENE GLYCOL 3350 17 GM PKT PO SCH (07:47)
[2018-05-05] MEDS: CYCLOBENZAPRINE 10 MG TAB PO PRN ×2 (08:10→21:09)
[2018-05-05] MEDS ORDERED: SENNOSIDES/DOCUSATE SODIUM TAB PO SCH (09:00)
[2018-05-05] MEDS ORDERED: FERROUS SULFATE 325 MG TAB PO SCH ×2 (09:00)
[2018-05-05] MEDS ORDERED: MULTIVITAMINS 1 EACH TAB PO SCH (09:00)
[2018-05-05] MEDS ORDERED: POLYETHYLENE GLYCOL 3350 17 GM PKT PO SCH (09:00)
[2018-05-05] MEDS ORDERED: POTASSIUM CL 20 MEQ TAB PO SCH (09:00)
[2018-05-05] MEDS ORDERED: MAGNESIUM OXIDE 400 MG TAB PO SCH (09:00)
[2018-05-05] MEDS ORDERED: SERTRALINE HCL 100 MG TAB PO SCH (09:00)
[2018-05-05] MEDS ORDERED: PNEUMOCOCCAL 0.5ML VACCINE VIAL IM ONE (12:03)
--- NOTE | 2018-05-05 16:02 | HOSPPROG ---
Hospitalist Progress Note Assessment/Plan: * s/p Left TKA with intraoperative femur fracture * toe touch weight bearing left leg * cont PT/OT * previous L TKA hardware infection * CRF Stage 4 * repeat labs in a couple days *chronic anemia * had transfusion perioperatively * repeat labs in a couple days *PAF * on oral anticoagulation * has linq monitor *HTN * chronic metabolic acidosis/hypokalemia * DVT proph * oral anticoagulation Subjective: pain with any movemeny but bearable. no new complaints Objective: Vital Signs Temp Pulse Resp BP Pulse Ox 36.6 C 61 16 123/73 H 98 05/05/18 05:26 05/05/18 05:26 05/05/18 05:26 05/05/18 05:26 05/05/18 05:26 05/04/18 05/05/18 05/06/18 05:59 05:59 05:59 Intake Total 800 Output Total 200 Balance 600 - Physical Exam Constitutional: no apparent distress, appears nourished, not in pain Eyes: anicteric sclera, EOMI Ears, Nose, Mouth, Throat: moist mucous membranes Cardiovascular: regular rate and rhythym Respiratory: no respiratory distress, no rales or rhonchi Skin: warm Musculoskeletal: other (edemal left leg) Neurologic: AAOx3 Psychiatric: interacting appropriately, not anxious, not encephalopathic, thought process linear ICD10 Worksheet Patient Problems: Problems Problem Status Onset Morbid obesity Acute Palpitations Acute Renal disease Acute S/P total knee arthroplasty Acute Swelling of lower extremity Acute VRE (vancomycin-resistant Enterococci) Acute ~04/09/17
[2018-05-05] MEDS: CALCIUM CARBONATE 500 MG CHEWABLE TAB PO SCH (21:09)
[2018-05-05] MEDS: QUEtiapine FUMARATE 25 MG TAB PO SCH (21:09)
[2018-05-06] MEDS: HYDROmorphONE/DILAUDID 2 MG TAB PO PRN ×3 (02:32→16:27)
[2018-05-06] MEDS: traMADol 50 MG TAB PO SCH ×3 (05:59→21:14)
[2018-05-06] MEDS: ACETAMINOPHEN 500 MG TAB PO SCH ×3 (05:59→21:14)
[2018-05-06] MEDS: MAGNESIUM OXIDE 400 MG TAB PO SCH (08:04)
[2018-05-06] MEDS: MULTIVITAMINS 1 EACH TAB PO SCH (08:04)
[2018-05-06] MEDS: APIXABAN 2.5 MG TAB PO SCH ×2 (08:04→21:14)
[2018-05-06] MEDS: SENNOSIDES/DOCUSATE SODIUM TAB PO SCH (08:04)
[2018-05-06] MEDS: SERTRALINE HCL 100 MG TAB PO SCH (08:04)
[2018-05-06] MEDS: FERROUS SULFATE 325 MG TAB PO SCH (08:04)
[2018-05-06] MEDS: POLYETHYLENE GLYCOL 3350 17 GM PKT PO SCH (08:05)
[2018-05-06] MEDS: POTASSIUM CL 20 MEQ TAB PO SCH (08:05)
[2018-05-06] MEDS: SODIUM BICARBONATE 650 MG TAB PO SCH (08:05)
[2018-05-06] MEDS: CALCIUM CARBONATE 500 MG CHEWABLE TAB PO SCH (10:06)
--- NOTE | 2018-05-06 11:46 | HOSPPROG ---
Hospitalist Progress Note Assessment/Plan: * s/p Left TKA with intraoperative femur fracture * toe touch weight bearing left leg * cont PT/OT * previous L TKA hardware infection * CRF Stage 4 * repeat labs in a couple days *chronic anemia * had transfusion perioperatively * repeat labs in a couple days *PAF * on oral anticoagulation * has linq monitor *HTN * chronic metabolic acidosis/hypokalemia * DVT proph * oral anticoagulation Subjective: no new complaint or issues. pain there but well controlled Objective: Vital Signs Temp Pulse Resp BP Pulse Ox 36.7 C 68 18 101/71 96 05/06/18 08:00 05/06/18 08:00 05/06/18 08:00 05/06/18 08:00 05/06/18 08:00 05/05/18 05/06/18 05/07/18 05:59 05:59 05:59 Intake Total 800 450 Output Total 200 620 Balance 600 -170 - Physical Exam Constitutional: no apparent distress, appears nourished, not in pain Eyes: anicteric sclera Ears, Nose, Mouth, Throat: hearing normal Cardiovascular: edema (left leg) Respiratory: no respiratory distress Skin: warm Neurologic: AAOx3 Psychiatric: interacting appropriately, not anxious, not encephalopathic, thought process linear ICD10 Worksheet Patient Problems: Problems Problem Status Onset Morbid obesity Acute Palpitations Acute Renal disease Acute S/P total knee arthroplasty Acute Swelling of lower extremity Acute VRE (vancomycin-resistant Enterococci) Acute ~04/09/17
[2018-05-06] MEDS ORDERED: CALCIUM CARBONATE 500 MG CHEWABLE TAB PO PRN (12:05)
[2018-05-06] MEDS: QUEtiapine FUMARATE 25 MG TAB PO SCH (21:14)
[2018-05-07] MEDS: HYDROmorphONE/DILAUDID 2 MG TAB PO PRN ×4 (00:14→19:09)
[2018-05-07] MEDS: CYCLOBENZAPRINE 10 MG TAB PO PRN ×2 (00:14→22:28)
[2018-05-07] MEDS: CALCIUM CARBONATE 500 MG CHEWABLE TAB PO SCH ×2 (00:18→21:13)
[2018-05-07] MEDS: ACETAMINOPHEN 500 MG TAB PO SCH ×3 (06:03→21:12)
[2018-05-07] MEDS: traMADol 50 MG TAB PO SCH ×3 (06:03→21:12)
[2018-05-07] MEDS: POTASSIUM CL 20 MEQ TAB PO SCH (07:48)
[2018-05-07] MEDS: SERTRALINE HCL 100 MG TAB PO SCH (07:48)
[2018-05-07] MEDS: MULTIVITAMINS 1 EACH TAB PO SCH (07:48)
[2018-05-07] MEDS: SENNOSIDES/DOCUSATE SODIUM TAB PO SCH (07:48)
[2018-05-07] MEDS: MAGNESIUM OXIDE 400 MG TAB PO SCH (07:49)
[2018-05-07] MEDS: FERROUS SULFATE 325 MG TAB PO SCH (07:49)
[2018-05-07] MEDS: APIXABAN 2.5 MG TAB PO SCH ×2 (07:50→21:12)
[2018-05-07] MEDS: POLYETHYLENE GLYCOL 3350 17 GM PKT PO SCH (07:50)
[2018-05-07] MEDS: SODIUM BICARBONATE 650 MG TAB PO SCH (08:03)
--- NOTE | 2018-05-07 17:03 | HOSPPROG ---
Hospitalist Progress Note Assessment/Plan: * s/p Left TKA with intraoperative femur fracture * toe touch weight bearing left leg * cont PT/OT * previous L TKA hardware infection * CRF Stage 4 * repeat labs tomorrow *chronic anemia * had transfusion perioperatively * repeat labs tomorrow *PAF * on oral anticoagulation * has linq monitor *HTN * chronic metabolic acidosis/hypokalemia * DVT proph * oral anticoagulation Subjective: no new complaints.; rehab going well Objective: Vital Signs Temp Pulse Resp BP Pulse Ox 36.8 C 66 16 125/79 H 97 05/06/18 21:00 05/07/18 09:00 05/07/18 09:00 05/07/18 09:00 05/07/18 09:00 05/06/18 05/07/18 05/08/18 05:59 05:59 05:59 Intake Total 450 800 240 Output Total 620 Balance -170 800 240 - Physical Exam Constitutional: no apparent distress, appears nourished, not in pain Eyes: anicteric sclera Cardiovascular: edema (left leg) Respiratory: no respiratory distress Neurologic: AAOx3 Psychiatric: interacting appropriately, not anxious, not encephalopathic, thought process linear ICD10 Worksheet Patient Problems: Problems Problem Status Onset Morbid obesity Acute Palpitations Acute Renal disease Acute S/P total knee arthroplasty Acute Swelling of lower extremity Acute VRE (vancomycin-resistant Enterococci) Acute ~04/09/17
[2018-05-07] MEDS: QUEtiapine FUMARATE 25 MG TAB PO SCH (21:12)
[2018-05-08] MEDS: HYDROmorphONE/DILAUDID 2 MG TAB PO PRN ×3 (01:32→12:34)
[2018-05-08] MEDS: ACETAMINOPHEN 500 MG TAB PO SCH ×3 (06:46→20:59)
[2018-05-08] MEDS: traMADol 50 MG TAB PO SCH ×3 (06:46→20:59)
[2018-05-08] MEDS: POTASSIUM CL 20 MEQ TAB PO SCH (08:56)
[2018-05-08] MEDS: SENNOSIDES/DOCUSATE SODIUM TAB PO SCH (08:56)
[2018-05-08] MEDS: MAGNESIUM OXIDE 400 MG TAB PO SCH (08:56)
[2018-05-08] MEDS: SERTRALINE HCL 100 MG TAB PO SCH (08:56)
[2018-05-08] MEDS: MULTIVITAMINS 1 EACH TAB PO SCH (08:56)
[2018-05-08] MEDS: FERROUS SULFATE 325 MG TAB PO SCH (08:57)
[2018-05-08] MEDS: APIXABAN 2.5 MG TAB PO SCH ×2 (08:57→20:57)
[2018-05-08] MEDS: POLYETHYLENE GLYCOL 3350 17 GM PKT PO SCH (10:15)
--- NOTE | 2018-05-08 11:47 | PDOREHIP ---
Admission [facility] - Admission - 3 Day Assessment Period Admission Date/Day 1: 05/04/18 Day 2: 05/05/18 Day 3: 05/06/18 - Active Diagnoses Comorbidities and Co-existing Conditions at Admission: 49614. None of the Above - Skin Conditions Unhealed Pressure Ulcer (1 or more/Stage 1 or >)-Admission: 0. No
[2018-05-08 12:08] LABS: PLATELET COUNT 362 10^3/uL (150-400)
--- NOTE | 2018-05-08 12:53 | SOAPPROG ---
SOAP Progress Note Assessment/Plan: Assessment: Debility status post total knee arthroplasty and periprosthetic femur fracture with a prolonged history of inactivity due to hardware removal from prior total knee and presence of an antibiotic spacer. * PT and OT to optimize mobility and activities of daily living toward the modified independent level. Pain management. Continue hydromorphone at 2-4 mg q.3 hours p.r.n., and continue tramadol and cyclobenzaprine. Chronic renal insufficiency stage IV. Stable on labs 05/08/2018. Anemia, status post transfusion. * Hemoglobin 8.6 on 05/08/2018, very slightly lower than in the hospital. * Continue erythropoietin, next due on 05/10/2018. * Check reticulocyte count and iron panel; add on to labs 05/08/2018. Hypokalemia and hypomagnesemia. * Potassium is stable. Check magnesium level; at onto labs 05/08/2018. Paroxysmal atrial fibrillation. Continue apixaban which will also suffice for DVT prophylaxis. Constipation. Resolved. Continue laxatives. History of a VRE in urine. She reports last positive culture was in November 2017. She will need to remain on contact isolation for 1 full year since then. Adjustment disorder with depressed mood. She has benefitted from the prescription of sertraline, and this will be continued. Prophylaxis. Apixaban will suffice for DVT prophylaxis. She has no need for GI prophylaxis. FOLLOW-UP: She will have followup with orthopedic surgeon, Dr. Joao Champagne, soon after her discharge from inpatient rehabilitation. She will follow up with her primary care provider, Dr. Watson, after her discharge, and she will follow up with Nephrology, Dr. Garcia, per her prior visit schedule before her hospitalization. 05/08/18 13:07 Subjective: Complains of right shoulder pain she reports that OT thinks it might be a rotator cuff issue. When she wakes at night to urinate she notes increased pain and takes a dose of hydromorphone. She reattains sleep within 5 min. Otherwise no complaints. No fevers or chills, no cough or dyspnea. Left medial knee still feels tender and hot. Objective: Vital Signs Temp Pulse Resp BP Pulse Ox 36.9 C 72 18 113/78 94 05/08/18 08:00 05/08/18 08:00 05/08/18 08:00 05/08/18 08:00 05/08/18 08:00 Laboratory Results 05/08/18 06:00 05/08/18 06:00 05/07/18 05/08/18 05/09/18 05:59 05:59 05:59 Intake Total 800 415 Balance 800 415 Physical Exam - Physical Exam General Appearance: WD/WN, alert, no apparent distress Respiratory: No respiratory distress, No accessory muscle use Skin: normal color, warm/dry Extremities: swelling (1+ edema left pretibial.), No calf tenderness Neuro/Psych: no motor/sensory deficits, alert, normal mood/affect, oriented x 3 ICD10 Worksheet Patient Problems: Problems Problem Status Onset Morbid obesity Acute Palpitations Acute Renal disease Acute S/P total knee arthroplasty Acute Swelling of lower extremity Acute VRE (vancomycin-resistant Enterococci) Acute ~04/09/17
[2018-05-08] MEDS: SODIUM BICARBONATE 650 MG TAB PO SCH (14:15)
[2018-05-08] MEDS: CALCIUM CARBONATE 500 MG CHEWABLE TAB PO SCH (20:57)
[2018-05-08] MEDS: QUEtiapine FUMARATE 25 MG TAB PO SCH (20:57)
[2018-05-09] MEDS: CYCLOBENZAPRINE 10 MG TAB PO PRN ×2 (00:42→23:25)
[2018-05-09] MEDS: HYDROmorphONE/DILAUDID 2 MG TAB PO PRN (04:10)
[2018-05-09] MEDS: traMADol 50 MG TAB PO SCH ×3 (06:27→21:06)
[2018-05-09] MEDS: ACETAMINOPHEN 500 MG TAB PO SCH ×3 (06:27→21:06)
[2018-05-09] MEDS: SODIUM BICARBONATE 650 MG TAB PO SCH (08:42)
[2018-05-09] MEDS: MULTIVITAMINS 1 EACH TAB PO SCH (08:43)
[2018-05-09] MEDS: MAGNESIUM OXIDE 400 MG TAB PO SCH (08:43)
[2018-05-09] MEDS: POTASSIUM CL 20 MEQ TAB PO SCH (08:44)
[2018-05-09] MEDS: SERTRALINE HCL 100 MG TAB PO SCH (08:44)
[2018-05-09] MEDS: SENNOSIDES/DOCUSATE SODIUM TAB PO SCH (08:44)
[2018-05-09] MEDS: APIXABAN 2.5 MG TAB PO SCH ×2 (08:44→21:06)
[2018-05-09] MEDS: FERROUS SULFATE 325 MG TAB PO SCH (08:44)
[2018-05-09] MEDS: POLYETHYLENE GLYCOL 3350 17 GM PKT PO SCH (08:45)
--- NOTE | 2018-05-09 10:40 | SOAPPROG ---
SOAP Progress Note Assessment/Plan: Assessment: Debility status post total knee arthroplasty and periprosthetic femur fracture with a prolonged history of inactivity due to hardware removal from prior total knee and presence of an antibiotic spacer. * Initial functional independence measure is 90 on 05/09/2018. She transfers standby assist to contact guard assist using a front wheeled walker; more difficulty transferring from a low surface. She has ambulated 10-30 feet with a front wheeled walker. She is inconsistent with weight-bearing. She climbed and descended a 2" step with a front wheeled walker. She accomplished a car transfer with contact guard assist. She is independent with grooming and hygiene seated in wheelchair but she will need to be standing at home. She needed close standby assist to contact guard assist studying for any activities which require standing. Upper body dressing was done with setup, lower body with contact guard to minimal assist. Bath transfer required contact guard assistance. She needed minimal assistance for bathing. She has biceps tendinitis of the right shoulder. * Continue PT and OT to optimize mobility and activities of daily living toward the modified independent level. Pain management. Continue hydromorphone at 2-4 mg q.3 hours p.r.n., and continue tramadol and cyclobenzaprine. Right biceps tendinitis. Modalities per PT and O T. Continue pain control. Ice after activities. Chronic renal insufficiency stage IV. Stable on labs 05/08/2018. Anemia, status post transfusion. * Hemoglobin 8.6 on 05/08/2018, very slightly lower than in the hospital. * Continue erythropoietin, next due on 05/10/2018. * Continues iron-deficient on labs 05/09/2018. Hypokalemia and hypomagnesemia. * Potassium is stable. Magnesium level is normal on 05/08/2018. * Discontinue potassium and magnesium supplements. Recheck labs in several days. Paroxysmal atrial fibrillation. Continue apixaban which will also suffice for DVT prophylaxis. Constipation. Resolved. Continue laxatives. History of a VRE in urine. She reports last positive culture was in November 2017. She will need to remain on contact isolation for 1 full year since then. Adjustment disorder with depressed mood. She has benefitted from the prescription of sertraline, and this will be continued. Prophylaxis. Apixaban will suffice for DVT prophylaxis. She has no need for GI prophylaxis. DISPOSITION: Attended staffing, 15 min. Discussed with case management, dietitian, nursing, PT, OT. Plans to return home. She has assistance from her son who is moved in with her. She also has caregiver responsibilities for her mother who has dementia. There are 3 steps to enter. She will need to be able to ambulate in the home safely and be compliant with touchdown weight-bearing. She will need to negotiate unlevel surfaces to enter and exit the home. Tentative discharge date set for 05/14/2018. FOLLOW-UP: She will have followup with orthopedic surgeon, Dr. Joao Champagne, soon after her discharge from inpatient rehabilitation. She will follow up with her primary care provider, Dr. Watson, after her discharge, and she will follow up with Nephrology, Dr. Garcia, per her prior visit schedule before her hospitalization. 05/09/18 10:40 Subjective: No complaints. Pain adequately controlled. Sleeping well. Bowels moving. No cough or dyspnea, no fevers or chills. Objective: Vital Signs Temp Pulse Resp BP Pulse Ox 36.6 C 72 16 149/99 H 96 05/09/18 06:34 05/09/18 06:34 05/09/18 06:34 05/09/18 06:34 05/09/18 06:34 Laboratory Results 05/08/18 06:00 05/08/18 06:00 05/08/18 05/09/18 05/10/18 05:59 05:59 05:59 Intake Total 415 1300 Balance 415 1300 - Time Spent With Patient Time Spent With Patient: Greater than 15 min floor time today, including more than 50% of time in coordination of care during staffing, and counseling patient. Physical Exam - Physical Exam General Appearance: WD/WN, alert, no apparent distress Respiratory: No respiratory distress, No accessory muscle use Skin: normal color, warm/dry, other (Incision with hermilo, clean dry and intact.) Extremities: No calf tenderness Neuro/Psych: no motor/sensory deficits, alert, normal mood/affect, oriented x 3 ICD10 Worksheet Patient Problems: Problems Problem Status Onset Morbid obesity Acute Palpitations Acute Renal disease Acute S/P total knee arthroplasty Acute Swelling of lower extremity Acute VRE (vancomycin-resistant Enterococci) Acute ~04/09/17
[2018-05-09] MEDS: QUEtiapine FUMARATE 25 MG TAB PO SCH (21:05)
[2018-05-09] MEDS: CALCIUM CARBONATE 500 MG CHEWABLE TAB PO SCH (21:05)
[2018-05-10] MEDS: HYDROmorphONE/DILAUDID 2 MG TAB PO PRN (04:19)
[2018-05-10] MEDS: ACETAMINOPHEN 500 MG TAB PO SCH ×3 (06:46→20:43)
[2018-05-10] MEDS: traMADol 50 MG TAB PO SCH ×3 (06:46→20:44)
[2018-05-10] MEDS: SODIUM BICARBONATE 650 MG TAB PO SCH (08:20)
[2018-05-10] MEDS: MULTIVITAMINS 1 EACH TAB PO SCH (08:21)
[2018-05-10] MEDS: SERTRALINE HCL 100 MG TAB PO SCH (08:21)
[2018-05-10] MEDS: APIXABAN 2.5 MG TAB PO SCH ×2 (08:21→20:43)
[2018-05-10] MEDS: FERROUS SULFATE 325 MG TAB PO SCH (08:21)
[2018-05-10] MEDS: SENNOSIDES/DOCUSATE SODIUM TAB PO SCH (08:50)
[2018-05-10] MEDS: POLYETHYLENE GLYCOL 3350 17 GM PKT PO SCH (08:50)
--- NOTE | 2018-05-10 09:03 | SOAPPROG ---
TORI Progress Note Assessment/Plan: 63-year-old woman with multiple comorbidities including chronic renal failure now status post a total knee arthroplasty revision on 05/01/2018 related to a periprosthetic femur fracture and prior antibiotic spacer. Impairments in mobility and self-care. Today's update: Concerned that the left leg swelling is related to formation of a DVT. She is certainly at high risk given her diagnoses and history as well as current immobility, however this is mitigated by long-term use of apixaban. Her risk a slightly increased because she had the apixaban held surrounding her surgery. The timing of the swelling, last Monday, compared with the timing of apixaban being held earlier in the week makes formation of a DVT less likely. In consideration of all this, it would be appropriate to obtain a D-dimer. If positive, would proceed to unilateral ultrasound to evaluate for DVT. If negative, would stop workup. Regarding her other medical issues, she is not endorsing any symptoms of delirium, no new swelling other than the leg as discussed above, pain management is adequate. Her mood is good. A total of 35 min was spent on the floor in the care of the patient, the majority of which was spent in counseling coordination of care regarding the diagnosis and potential treatment plan for a DVT if that was contributing to her leg swelling. Additional issues reviewed without change today include right biceps tendinosis , chronic renal insufficiency stage IV, anemia status post transfusion, hypokalemia and hypomagnesemia, history of VRE in the urine, constipation. She will need follow up with Orthopedic surgery, Dr. Champagne after discharge from inpatient rehab. Primary care providers Dr. Watson, nephrology Dr. Garcia. Plan to discharge home with assistance from her son. He is to be adherent to touchdown weight-bearing on affected leg. 05/10/18 08:58 05/10/18 09:05 Subjective: Chief complaint: Left leg swelling No acute events overnight. Patient denies any new shortness of breath or chest pain, no new numbness, tingling, or weakness. She endorses that she had left leg swelling that initially started on the Monday after admission. She states that she did not have swelling earlier in the week that was closer to her surgery, but she did have a period of time on Monday evening when her leg was in a more dependent position both during the transfer to inpatient rehab as well as when she was on inpatient rehab. She believes that this is the likely cause of her left leg swelling. She recalls the time that she was last in inpatient rehabilitation and had bilateral leg swelling without DVT that was fluid related. In this case her right leg does not have any swelling that she has noticed. She does not note any significant new pain or redness or swelling around the incision. Denies any confusion or nighttime delirium. Endorses that she has been having difficulty keeping her precautions because of comorbid shoulder pain, working with therapies on this issue. Objective: Vital Signs Temp Pulse Resp BP Pulse Ox 36.8 C 77 18 146/89 H 95 05/10/18 07:21 05/10/18 07:21 05/10/18 07:21 05/10/18 07:21 05/10/18 07:21 Laboratory Results 05/08/18 06:00 05/08/18 06:00 05/09/18 05/10/18 05/11/18 05:59 05:59 05:59 Intake Total 1300 1400 Balance 1300 1400 Physical Exam - Physical Exam General Appearance: WD/WN, alert, no apparent distress EENT: No scleral icterus (R), No scleral icterus (L) Respiratory: lungs clear, normal breath sounds, No respiratory distress, No accessory muscle use Cardiac/Chest: normal peripheral pulses, regular rate, rhythm, edema (Left leg 2 + pitting edema, no edema on the right) Skin: normal color, warm/dry, other (Incision is open to air with hermilo in place. Clean dry and intact. No surrounding warmth, erythema, or discharge), No cyanosis Extremities: non-tender, No calf tenderness, No Sandy's sign Neuro/Psych: alert, normal mood/affect ICD10 Worksheet Patient Problems: Problems Problem Status Onset Morbid obesity Acute Palpitations Acute Renal disease Acute S/P total knee arthroplasty Acute Swelling of lower extremity Acute VRE (vancomycin-resistant Enterococci) Acute ~04/09/17
[2018-05-10] MEDS ORDERED: EPOETIN ALFA 10,000 UNIT/ML VIAL SC SCH ×2 (14:00)
[2018-05-10] MEDS: CALCIUM CARBONATE 500 MG CHEWABLE TAB PO SCH (20:43)
[2018-05-10] MEDS: QUEtiapine FUMARATE 25 MG TAB PO SCH (20:44)
[2018-05-10] MEDS: CYCLOBENZAPRINE 10 MG TAB PO PRN (22:59)
[2018-05-11] MEDS: traMADol 50 MG TAB PO SCH ×3 (05:06→21:19)
[2018-05-11] MEDS: ACETAMINOPHEN 500 MG TAB PO SCH ×3 (05:06→21:19)
[2018-05-11] MEDS: CYCLOBENZAPRINE 10 MG TAB PO PRN ×3 (05:06→23:07)
[2018-05-11] MEDS ORDERED: POLYETHYLENE GLYCOL 3350 17 GM PKT PO PRN (09:07)
[2018-05-11] MEDS ORDERED: SENNOSIDES/DOCUSATE SODIUM TAB PO PRN (09:07)
[2018-05-11] MEDS: SODIUM BICARBONATE 650 MG TAB PO SCH (09:45)
[2018-05-11] MEDS: MULTIVITAMINS 1 EACH TAB PO SCH (09:45)
[2018-05-11] MEDS: FERROUS SULFATE 325 MG TAB PO SCH (09:45)
[2018-05-11] MEDS: APIXABAN 2.5 MG TAB PO SCH ×2 (09:45→21:20)
[2018-05-11] MEDS: SERTRALINE HCL 100 MG TAB PO SCH (09:45)
[2018-05-11] MEDS: POLYETHYLENE GLYCOL 3350 17 GM PKT PO SCH (09:50)
[2018-05-11] MEDS: SENNOSIDES/DOCUSATE SODIUM TAB PO SCH (09:50)
--- NOTE | 2018-05-11 11:36 | SOAPPROG ---
SOAP Progress Note Assessment/Plan: Assessment: Debility status post total knee arthroplasty and periprosthetic femur fracture with a prolonged history of inactivity due to hardware removal from prior total knee and presence of an antibiotic spacer. * Initial functional independence measure is 90 on 05/09/2018. She transfers standby assist to contact guard assist using a front wheeled walker; more difficulty transferring from a low surface. She has ambulated 10-30 feet with a front wheeled walker. She is inconsistent with weight-bearing. She climbed and descended a 2" step with a front wheeled walker. She accomplished a car transfer with contact guard assist. She is independent with grooming and hygiene seated in wheelchair but she will need to be standing at home. She needed close standby assist to contact guard assist studying for any activities which require standing. Upper body dressing was done with setup, lower body with contact guard to minimal assist. Bath transfer required contact guard assistance. She needed minimal assistance for bathing. She has biceps tendinitis of the right shoulder. * Continue PT and OT to optimize mobility and activities of daily living toward the modified independent level. Pain management. Continue hydromorphone at 2-4 mg q.3 hours p.r.n. (none used since yesterday, 05/10/2018), and continue tramadol scheduled 50 mg q.8 hours, and cyclobenzaprine as needed. Continue acetaminophen scheduled 1000 mg three times daily. Right biceps tendinitis. Modalities per PT and O T. Continue pain control. Ice after activities. Chronic renal insufficiency stage IV. Stable on labs 05/08/2018. Anemia, status post transfusion. * Hemoglobin 8.6 on 05/08/2018, very slightly lower than in the hospital. * Continue erythropoietin, next due on 05/10/2018. * Continues iron-deficient on labs 05/09/2018. Hypokalemia and hypomagnesemia. * Potassium is stable. Magnesium level is normal on 05/08/2018. * Discontinue potassium and magnesium supplements. Recheck labs in several days. Paroxysmal atrial fibrillation. Continue apixaban which will also suffice for DVT prophylaxis. Constipation. Resolved. Continue laxatives. History of a VRE in urine. She reports last positive culture was in November 2017. She will need to remain on contact isolation for 1 full year since then. Adjustment disorder with depressed mood. She has benefitted from the prescription of sertraline, and this will be continued. Prophylaxis. Apixaban will suffice for DVT prophylaxis. She has no need for GI prophylaxis. DISPOSITION: She has assistance from her son who is moved in with her. She also has caregiver responsibilities for her mother who has dementia. There are 3 steps to enter. She will need to be able to ambulate in the home safely and be compliant with touchdown weight-bearing. She will need to negotiate unlevel surfaces to enter and exit the home. Tentative discharge date set for 2017. FOLLOW-UP: She will have followup with orthopedic surgeon, Dr. Joao Champagne, soon after her discharge from inpatient rehabilitation. She will follow up with her primary care provider, Dr. Watson, after her discharge, and she will follow up with Nephrology, Dr. Garcia, per her prior visit schedule before her hospitalization. 05/11/18 11:59 Subjective: No complaints. Still has some pain proximal medial over left tibia. Right shoulder pain is improving. No fevers or chills, no cough or dyspnea. Objective: Vital Signs Temp Pulse Resp BP Pulse Ox 36.4 C 70 16 138/92 H 92 05/11/18 05:40 05/11/18 05:40 05/11/18 05:40 05/11/18 05:40 05/11/18 05:40 Laboratory Results 05/08/18 06:00 05/08/18 06:00 05/10/18 05/11/18 05/12/18 05:59 05:59 05:59 Intake Total 1400 1340 240 Balance 1400 1340 240 Physical Exam - Physical Exam General Appearance: WD/WN, alert, no apparent distress Respiratory: normal breath sounds, No crackles, No rhonchi, No wheezing Cardiac/Chest: regular rate, rhythm, No diastolic murmur, No systolic murmur Skin: normal color, warm/dry, other (Left knee incision with hermilo present, clean dry and intact.) Neuro/Psych: no motor/sensory deficits, alert, normal mood/affect, oriented x 3 ICD10 Worksheet Patient Problems: Problems Problem Status Onset Morbid obesity Acute Palpitations Acute Renal disease Acute S/P total knee arthroplasty Acute Swelling of lower extremity Acute VRE (vancomycin-resistant Enterococci) Acute ~04/09/17
[2018-05-11] MEDS: CALCIUM CARBONATE 500 MG CHEWABLE TAB PO SCH (21:20)
[2018-05-11] MEDS: QUEtiapine FUMARATE 25 MG TAB PO SCH (21:20)
[2018-05-12] MEDS: traMADol 50 MG TAB PO SCH ×3 (06:14→22:45)
[2018-05-12] MEDS: ACETAMINOPHEN 500 MG TAB PO SCH ×3 (06:14→22:45)
[2018-05-12] MEDS: SODIUM BICARBONATE 650 MG TAB PO SCH (07:30)
[2018-05-12] MEDS: APIXABAN 2.5 MG TAB PO SCH ×2 (07:31→21:34)
[2018-05-12] MEDS: MULTIVITAMINS 1 EACH TAB PO SCH (07:31)
[2018-05-12] MEDS: SERTRALINE HCL 100 MG TAB PO SCH (07:31)
[2018-05-12] MEDS: FERROUS SULFATE 325 MG TAB PO SCH (07:31)
[2018-05-12 16:41] LABS: PLATELET COUNT 395 10^3/uL (150-400)
--- NOTE | 2018-05-12 16:58 | SOAPPROG ---
SOAP Progress Note Assessment/Plan: Assessment: Debility status post total knee arthroplasty and periprosthetic femur fracture with a prolonged history of inactivity due to hardware removal from prior total knee and presence of an antibiotic spacer. * Initial functional independence measure is 90 on 05/09/2018. She transfers standby assist to contact guard assist using a front wheeled walker; more difficulty transferring from a low surface. She has ambulated 10-30 feet with a front wheeled walker. She is inconsistent with weight-bearing. She climbed and descended a 2" step with a front wheeled walker. She accomplished a car transfer with contact guard assist. She is independent with grooming and hygiene seated in wheelchair but she will need to be standing at home. She needed close standby assist to contact guard assist studying for any activities which require standing. Upper body dressing was done with setup, lower body with contact guard to minimal assist. Bath transfer required contact guard assistance. She needed minimal assistance for bathing. She has biceps tendinitis of the right shoulder. * Continue PT and OT to optimize mobility and activities of daily living toward the modified independent level. Pain management. Continue hydromorphone at 2-4 mg q.3 hours p.r.n. (none used since 05/10/2018), and continue tramadol scheduled 50 mg q.8 hours, and cyclobenzaprine as needed. Continue acetaminophen scheduled 1000 mg three times daily. Right biceps tendinitis. Modalities per PT and O T. Continue pain control. Ice after activities. Chronic renal insufficiency stage IV. Stable on labs 05/08/2018 and 05/12/2018. Anemia, status post transfusion. * Hemoglobin 8.6 on 05/08/2018, very slightly lower than in the hospital. Improving on labs 05/12/2018. * Continue erythropoietin, next due on 05/24/2018. * Continues iron-deficient on labs 05/09/2018. Hypokalemia and hypomagnesemia. * Potassium is stable. Magnesium level is normal on 05/08/2018. * Discontinued potassium and magnesium supplements. Magnesium dropped from 1.9 to 1.6. Will resume magnesium oxide 200 mg daily. Paroxysmal atrial fibrillation. Continue apixaban which will also suffice for DVT prophylaxis. Constipation. Resolved. Continue laxatives. History of a VRE in urine. She reports last positive culture was in November 2017. She will need to remain on contact isolation for 1 full year since then. Adjustment disorder with depressed mood. She has benefitted from the prescription of sertraline, and this will be continued. Prophylaxis. Apixaban will suffice for DVT prophylaxis. She has no need for GI prophylaxis. She had elevated D-dimer on 05/10/2018, but bilateral lower extremity ultrasound was negative for DVT. DISPOSITION: She has assistance from her son who is moved in with her. She also has caregiver responsibilities for her mother who has dementia. There are 3 steps to enter. She will need to be able to ambulate in the home safely and be compliant with touchdown weight-bearing. She will need to negotiate unlevel surfaces to enter and exit the home. Tentative discharge date set for 2017. FOLLOW-UP: She will have followup with orthopedic surgeon, Dr. Joao Champagne, soon after her discharge from inpatient rehabilitation. She will follow up with her primary care provider, Dr. Watson, after her discharge, and she will follow up with Nephrology, Dr. Garcia, per her prior visit schedule before her hospitalization. 05/12/18 16:48 Subjective: No complaints. Not in pain. No cough or dyspnea, no fevers chills. Reports that her medial left knee is less tender. Objective: Vital Signs Temp Pulse Resp BP Pulse Ox 36.8 C 70 14 149/93 H 93 05/12/18 08:00 05/12/18 08:00 05/12/18 08:00 05/12/18 08:00 05/12/18 08:00 Laboratory Results 05/12/18 15:00 05/12/18 12:40 05/11/18 05/12/18 05/13/18 05:59 05:59 05:59 Intake Total 1340 740 480 Balance 1340 740 480 Physical Exam - Physical Exam General Appearance: WD/WN, alert, no apparent distress Respiratory: No respiratory distress, No accessory muscle use Skin: normal color, warm/dry, other (Incision with hermilo, clean dry intact.) Neuro/Psych: no motor/sensory deficits, alert, normal mood/affect, oriented x 3 ICD10 Worksheet Patient Problems: Problems Problem Status Onset Morbid obesity Acute Palpitations Acute Renal disease Acute S/P total knee arthroplasty Acute Swelling of lower extremity Acute VRE (vancomycin-resistant Enterococci) Acute ~04/09/17
[2018-05-12] MEDS: LOPERAMIDE HCL 2 MG CAP PO PRN ×2 (17:09→17:10)
[2018-05-12] MEDS: CALCIUM CARBONATE 500 MG CHEWABLE TAB PO SCH (21:34)
[2018-05-12] MEDS: QUEtiapine FUMARATE 25 MG TAB PO SCH (22:45)
[2018-05-12] MEDS: CYCLOBENZAPRINE 10 MG TAB PO PRN (22:49)
[2018-05-13] MEDS: traMADol 50 MG TAB PO SCH ×3 (06:42→23:00)
[2018-05-13] MEDS: ACETAMINOPHEN 500 MG TAB PO SCH ×3 (06:43→23:01)
[2018-05-13] MEDS: MULTIVITAMINS 1 EACH TAB PO SCH (08:39)
[2018-05-13] MEDS: FERROUS SULFATE 325 MG TAB PO SCH (08:39)
[2018-05-13] MEDS: SODIUM BICARBONATE 650 MG TAB PO SCH (08:39)
[2018-05-13] MEDS: SERTRALINE HCL 100 MG TAB PO SCH (08:39)
[2018-05-13] MEDS: APIXABAN 2.5 MG TAB PO SCH ×2 (08:40→21:55)
[2018-05-13] MEDS: CYCLOBENZAPRINE 10 MG TAB PO PRN ×2 (08:50→23:48)
[2018-05-13] MEDS ORDERED: MAGNESIUM OXIDE 400 MG TAB PO SCH ×2 (09:00→12:20)
--- NOTE | 2018-05-13 12:07 | SOAPPROG ---
SOAP Progress Note Assessment/Plan: Assessment: Debility status post total knee arthroplasty and periprosthetic femur fracture with a prolonged history of inactivity due to hardware removal from prior total knee and presence of an antibiotic spacer. * Initial functional independence measure is 90 on 05/09/2018. She transfers standby assist to contact guard assist using a front wheeled walker; more difficulty transferring from a low surface. She has ambulated 10-30 feet with a front wheeled walker. She is inconsistent with weight-bearing. She climbed and descended a 2" step with a front wheeled walker. She accomplished a car transfer with contact guard assist. She is independent with grooming and hygiene seated in wheelchair but she will need to be standing at home. She needed close standby assist to contact guard assist steadying for any activities which require standing. Upper body dressing was done with setup, lower body with contact guard to minimal assist. Bath transfer required contact guard assistance. She needed minimal assistance for bathing. She has biceps tendinitis of the right shoulder. * Continue PT and OT to optimize mobility and activities of daily living toward the modified independent level. Pain management. Continue hydromorphone at 2-4 mg q.3 hours p.r.n. (none used since 05/10/2018), and continue tramadol scheduled 50 mg q.8 hours, and cyclobenzaprine as needed. Continue acetaminophen scheduled 1000 mg three times daily. Right biceps tendinitis. Modalities per PT and O T. Continue pain control. Ice after activities. Chronic renal insufficiency stage IV. Stable on labs 05/08/2018 and 05/12/2018. Anemia, status post transfusion. * Hemoglobin 8.6 on 05/08/2018, very slightly lower than in the hospital. Improving on labs 05/12/2018. * Continue erythropoietin, next due on 05/24/2018. * Continues iron-deficient on labs 05/09/2018. Hypokalemia and hypomagnesemia. * Potassium is stable. Magnesium level is normal on 05/08/2018. * Discontinued potassium and magnesium supplements. Magnesium dropped from 1.9 to 1.6. Will resume magnesium oxide 200 mg daily starting 05/13/2018. Paroxysmal atrial fibrillation. Continue apixaban which will also suffice for DVT prophylaxis. Constipation. Resolved. Continue laxatives. History of a VRE in urine. She reports last positive culture was in November 2017. She will need to remain on contact isolation for 1 full year since then. Adjustment disorder with depressed mood. She has benefitted from the prescription of sertraline, and this will be continued. Prophylaxis. Apixaban will suffice for DVT prophylaxis. She has no need for GI prophylaxis. She had elevated D-dimer on 05/10/2018, but bilateral lower extremity ultrasound was negative for DVT. DISPOSITION: She has assistance from her son who is moved in with her. She also has caregiver responsibilities for her mother who has dementia. There are 3 steps to enter. She will need to be able to ambulate in the home safely and be compliant with touchdown weight-bearing. She will need to negotiate unlevel surfaces to enter and exit the home. Tentative discharge date set for 2017. FOLLOW-UP: She will have followup with orthopedic surgeon, Dr. Joao Champagne, soon after her discharge from inpatient rehabilitation. She will follow up with her primary care provider, Dr. Watson, after her discharge, and she will follow up with Nephrology, Dr. Garcia, per her prior visit schedule before her hospitalization. 05/13/18 12:05 Subjective: No complaints. Feels ready to go home tomorrow. Objective: Vital Signs Temp Pulse Resp BP Pulse Ox 37.1 C 67 14 143/103 H 96 05/13/18 07:47 05/13/18 07:47 05/13/18 07:47 05/13/18 07:47 05/13/18 07:47 Laboratory Results 05/12/18 15:00 05/12/18 12:40 05/12/18 05/13/18 05/14/18 05:59 05:59 05:59 Intake Total 740 980 360 Balance 740 980 360 Physical Exam - Physical Exam General Appearance: WD/WN, alert, no apparent distress Respiratory: No respiratory distress, No accessory muscle use Skin: normal color, warm/dry, other (Left knee incision clean dry and intact.) Neuro/Psych: no motor/sensory deficits, alert, normal mood/affect, oriented x 3 , other (Observed transferring from PT mat to wheelchair using front wheeled walker needing no assistance.) ICD10 Worksheet Patient Problems: Problems Problem Status Onset Morbid obesity Acute Palpitations Acute Renal disease Acute S/P total knee arthroplasty Acute Swelling of lower extremity Acute VRE (vancomycin-resistant Enterococci) Acute ~04/09/17
--- NOTE | 2018-05-13 12:13 | PDOREHIP ---
Admission [facility] - Admission - 3 Day Assessment Period Admission Date/Day 1: 05/04/18 Day 2: 05/05/18 Day 3: 05/06/18 Discharge [facility] - Discharge - 3 Day Assessment Period 2 Days Prior to Anticipated Discharge Date: 05/12/18 1 Day Prior to Anticipated Discharge Date: 05/13/18 Anticipated Discharge Date: 05/14/18 - Discharge Skin Conditions Unhealed Pressure Ulcer (1 or more/Stage 1 or >)-Discharge: 0. No
[2018-05-13] MEDS: CALCIUM CARBONATE 500 MG CHEWABLE TAB PO SCH (21:55)
[2018-05-13] MEDS: QUEtiapine FUMARATE 25 MG TAB PO SCH (23:01)
[2018-05-14] MEDS: ACETAMINOPHEN 500 MG TAB PO SCH ×2 (06:44→14:06)
[2018-05-14] MEDS: traMADol 50 MG TAB PO SCH ×2 (06:45→14:06)
[2018-05-14] MEDS: SERTRALINE HCL 100 MG TAB PO SCH (08:23)
[2018-05-14] MEDS: APIXABAN 2.5 MG TAB PO SCH (08:23)
[2018-05-14] MEDS: MULTIVITAMINS 1 EACH TAB PO SCH (08:23)
[2018-05-14] MEDS: FERROUS SULFATE 325 MG TAB PO SCH (08:23)
[2018-05-14] MEDS: SODIUM BICARBONATE 650 MG TAB PO SCH (08:23)
[2018-05-14 08:26] VITALS: BP 130/74
[2018-05-14] MEDS: CYCLOBENZAPRINE 10 MG TAB PO PRN (10:46)
--- NOTE | 2018-05-14 14:39 | GDS ---
ADMITTING DIAGNOSIS: Debility status post left total knee replacement. DISCHARGE DIAGNOSIS: Debility status post left total knee replacement. OTHER DISCHARGE DIAGNOSES: 1. Right biceps tendinitis. 2. Chronic renal insufficiency stage IV. 3. Anemia, iron deficient. CONSULTATIONS: There were none. COMPLICATIONS: There were none. PROCEDURES: There were none. HISTORY AND HOSPITAL COURSE: This patient was admitted from [facility] where she had a knee replacement by Dr. Champagne on 05/01/2018. She had a previous left total knee arthroplasty, but had developed an infection and hardware needed to be removed. An antibiotic spacer was placed and she spent several months with the antibiotic spacer in place until she was ready for knee replacement. She had an intraoperative fracture of the left periprosthetic femur and was toe-touch weightbearing on the left lower extremity. There was postoperative anemia which required a transfusion. She was otherwise medically stable and ready for inpatient rehabilitation. She did well in rehabilitation. As of 05/09/2018, her functional independence measure was 90 which is consistent with assisted living level of care. At that time, her transfers required standby assist to contact guard assist using a front-wheeled walker and it was harder for her transfer from a low surface. She had ambulated 10-30 feet with a front-wheeled walker. She climbed and descended a 2 inch step with a front-wheeled walker. She accomplished a car transfer with contact guard assist. She was independent with grooming and hygiene seated in the wheelchair. She needed close standby to contact guard assist for any activities which required standing. Upper body dressing was done with set up and lower body with contact guard to minimal assist. Bath transfer required contact guard assist. Bathing required minimal assist. She continued to functionally improve and by the day of discharge, her transfers were done with modified independence using a front-wheeled walker. A car transfer required only standby assist using the front-wheeled walker. She had walked 50 feet with modified independence using a front-wheeled walker and outdoors on a sidewalk for 25 feet with standby assist. She was able to propel a wheelchair 500 feet with modified independence. She was able to negotiate a 4 inch step with front wheeled walker and standby assist. She had fatigue and would become inconsistent with her toe-touch weightbearing restriction when she was fatigued. Regarding activities of daily living, she was independent for grooming and hygiene sitting at the sink. She had modified independence for lower body dressing and full independence for upper body dressing. She had modified independence for toileting. She had modified independence for toilet transfers. Pain management initially required hydromorphone, but she had not used any hydromorphone since 05/10/2018. She was continuing with tramadol which was scheduled at 50 mg q.8 hours. She has occasional cyclobenzaprine and she was using acetaminophen scheduled at 1000 mg 3 times a day. Regarding right biceps tendinitis, this initially was limiting as she had to support considerable weight to maintain toe-touch weightbearing using a front- wheeled walker. It improved during the course of her stay. She was using icing after activities. She has chronic renal insufficiency stage IV, and this remains stable on serial laboratory testing. On 05/12/2018, her creatinine was 1.9 and her estimated GFR was 27. She had anemia postoperatively. She had transfusions in the hospital. She was iron deficient when tested on 05/08/2018, with an iron of 44, a TIBC of 261, and iron saturation of 17%. She was continued on iron replacement. She received a scheduled dose of erythropoietin. Her anemia improved slightly. On 05/12/2018, her hemoglobin was 9 and her hematocrit was 28.8. DISCHARGE PLAN: Condition upon discharge is good. Discharge destination is home where she will have assistance from her son who is living with her. ACTIVITY: Ad marlon though her endurance is limited and she is to maintain toe- touch weightbearing on the left lower extremity. DIET: Regular. MEDICATIONS ON DISCHARGE: 1. Apixaban 2.5 mg p.o. twice daily for paroxysmal atrial fibrillation. 2. Cyclobenzaprine 10 mg p.o. three times daily p.r.n. muscle spasms. 3. Erythropoietin 10,000 units subcutaneous q.14 days with the next dose due . 4. Ferrous sulfate 325 mg p.o. daily. 5. Loperamide 2 mg p.o. four times daily p.r.n. diarrhea. 6. Magnesium oxide 200 mg p.o. daily. 7. Quetiapine 25 mg p.o. at bedtime. 8. Sertraline 100 mg p.o. daily. 9. Sodium bicarbonate 650 mg p.o. daily. 10. Tramadol 50 mg p.o. q.8 hours. ISSUES TO BE ADDRESSED AT FOLLOWUP: 1. Functional status with toe-touch weightbearing on the left lower extremity. She will continue therapies at home. She can follow up with her primary care provider regarding her progress. She has an appointment with orthopedic surgeon , Dr. Joao Champagne on 05/23/2018, at 2:30 p.m. regarding weightbearing status and the periprosthetic fracture. 2. Chronic renal insufficiency stage IV, stable on labs. She has an appointment with white sugar syrup operator, Dr. Chauncey Garcia on 05/24/2018. 3. Anemia. She should continue iron sulfate for at least a month following her surgery, which would be through June 01. She can follow up with her primary care provider regarding repeat labs for blood counts and iron status. 4. Hypokalemia and hypomagnesemia. Her potassium was stable and potassium supplement was discontinued on 05/08/2018. Magnesium was discontinued, but dropped from 1.9 to 1.6 and magnesium sulfate was resumed on 05/13/2018. She can follow up with Nephrology. 5. Paroxysmal atrial fibrillation. Continue apixaban, which also suffice for DVT prophylaxis. Copy requested to: Dr. Joao Champagne /[id number]/MODL MTDD
[2018-05-14] MEDS: LOPERAMIDE HCL 2 MG CAP PO PRN (14:44)
== END 2018-05-14 15:01 | disposition home or self-care (01) | DRG 560 ==
LOC: BREH 16:40
PROVIDERS: ADMIT Internal Medicine; ATTEND Internal Medicine
PROC: F08Z4ZZ Home Management Treatment (ICD-10-PCS; principal; 2018-05-04)
PROC: F07M3ZZ Motor Function Treatment of Musculoskeletal System - Whole Body (ICD-10-PCS; principal; 2018-05-04)
DX: Z47.1 Aftercare following joint replacement surgery (principal); Z96.652 Presence of left artificial knee joint; I12.9 Hypertensive chronic kidney disease with stage 1 through stage 4 chronic kidney disease, or unspecified chronic kidney disease; N18.4 Chronic kidney disease, stage 4 (severe); T83.518A Infection and inflammatory reaction due to other urinary catheter, initial encounter; Z16.21 Resistance to vancomycin; E46 Unspecified protein-calorie malnutrition; I48.0 Paroxysmal atrial fibrillation; R60.1 Generalized edema; M21.371 Foot drop, right foot; M21.372 Foot drop, left foot; G62.9 Polyneuropathy, unspecified; E66.9 Obesity, unspecified; F10.20 Alcohol dependence, uncomplicated; E78.5 Hyperlipidemia, unspecified; F43.21 Adjustment disorder with depressed mood; K59.00 Constipation, unspecified; D50.9 Iron deficiency anemia, unspecified; E87.6 Hypokalemia; E83.42 Hypomagnesemia
CPT/HCPCS: 97110-GO; 97110-GP; 97112-GO; 97116-GP; 97161-GP; 97166-GO; 97530-GO; 97530-GP; 97535-GO; 97542-GP; G0009; J0885

== ENCOUNTER → 2018-08-03 | Outpatient (CLI) | payer OTHER | LOC: CIMAGING 14:52 | DX: Z12.31 Encounter for screening mammogram for malignant neoplasm of breast (principal) ==

== ENCOUNTER 2018-09-05 07:17 | Day surgery (SDC) | payer OTHER ==
[2018-09-05] MEDS ORDERED: NS 1,000 ML IV ONE (07:35)
--- NOTE | 2018-09-05 08:48 | PDGENHP ---
History and Physical - Chief Complaint Screening colonoscopy - History of Present Illness pleasant 63 yr old with hx of ESRD and Afib presents for screening colonoscopy. Undergoing renal Tx work-up. No personal or family hx of colon cancer or polyps. Has been OFF eliquis 7d. History Information - Allergies/Home Medication List Allergies/Adverse Reactions: No Known Allergies Allergy (Verified 04/19/18 12:45) Home Medications: Multivitamins [Multivitamin (*)] 1 each PO DAILY 05/04/18 [Last Taken 09/04/18] Slow-Mag 08/27/18 [Last Taken 09/04/18] I have personally reviewed and updated: family history, medical history, social history, surgical history Past Medical History: ESRD, Afib, spine/ortho surgeries - Past Medical History atrial fibrillation, ESRD - Surgical History Reports: no pertinent surgical hx - Family History Additional family history: no hx of colon cancer - Social History Smoking Status: Never smoked Alcohol Use: Occasionally Review of Systems Review of Systems: ROS: 10pt was reviewed & negative except for what was stated in HPI & below Physical Exam Physical Exam: Temp Pulse Resp BP Pulse Ox 36.7 C 77 18 166/98 H 96 09/05/18 07:44 09/05/18 07:44 09/05/18 07:44 09/05/18 07:44 09/05/18 07:44 Constitutional: no apparent distress Eyes: PERRL Ears, Nose, Mouth, Throat: moist mucous membranes Cardiovascular: regular rate and rhythym Respiratory: no respiratory distress Gastrointestinal: normoactive bowel sounds Skin: warm Neurologic: AAOx3 Psychiatric: interacting appropriately Assessment & Plan Assessment: 1. Screening colonoscopy Plan: 1. Colonoscopy 2. Resumption of anticoagulation pending #1.
--- NOTE | 2018-09-05 09:15 | PDANEPAE ---
ANE History of Present Illness colonoscopy for routine screening for organ transplant ANE Past Medical History - Cardiovascular History Hx Hypertension: Yes Hx Arrhythmias: Yes Hx Chest Pain: No Hx Coronary Artery / Peripheral Vascular Disease: No Hx CHF / Valvular Disease: No Hx Palpitations: No Cardiovascular History Comment: afib. hypercholesterolemia. linq monitor placed with mariam 09/22/17. eliquis stopped 04/16/18 - Pulmonary History Hx COPD: No Hx Asthma/Reactive Airway Disease: No Hx Recent Upper Respiratory Infection: No Hx Oxygen in Use at Home: No Hx Sleep Apnea: No Sleep Apnea Screening Result - Last Documented: Negative - Neurologic History Hx Cerebrovascular Accident: No Hx Seizures: No Hx Dementia: No Neurologic History Comment: Encephalopathy and mennigitis from sepsis s/p left knee surgery 02/2017. hospitalized at [facility] - Endocrine History Hx Diabetes: No - Renal History Hx Renal Disorders: Yes Renal History Comment: CKD requiring dialysis. hx of kidney stones. R. kidney no longer functioning due to ureteral reflux as young adolescent - Liver History Hx Hepatic Disorders: No - Neurological & Psychiatric Hx Hx Neurological and Psychiatric Disorders: Yes Neurological / Psychiatric History Comment: situational depression d/t a year of medical issues - Cancer History Hx Cancer: No - Congenital Disorder History Hx Congenital Disorders: Yes Congenital History Comment: ureteral reflux - GI History Hx Gastrointestinal Disorders: No - Other Health History Other Health History: hx of anemia - Chronic Pain History Chronic Pain: No - Surgical History Prior Surgeries: 03/16/18 renal bx with Mao. November 2017 L. knee sx. Oct 19, 2017 washing L. knee. 09/12/17 linq monitor placed with Mariam. 02/2017 L. knee surgery. 02/18 another L. knee washing 2016 l. knee graft. 7 spinal surgeries [id number], 1975 reimplantation of ureters ANE Review of Systems Review of Systems: - Exercise capacity METS (RN): 2 METS ANE Patient History - Allergies Allergies/Adverse Reactions: No Known Allergies Allergy (Verified 04/19/18 12:45) - Home Medications Home Medications: Multivitamins [Multivitamin (*)] 1 each PO DAILY 05/04/18 [Last Taken 09/04/18] Slow-Mag 08/27/18 [Last Taken 09/04/18] - NPO status NPO Since - Liquids (Date): 09/05/18 NPO Since - Liquids (Time): 05:30 NPO Since - Solids (Date): 09/04/18 NPO Since - Solids (Time): 23:00 - Smoking Hx Smoking Status: Never smoked - Alcohol Use Alcohol Use: Occasionally - Family Anes Hx Family Hx Anesthesia Complications: none ANE Labs/Vital Signs - Vital Signs Blood Pressure: 166/98 Heart Rate: 77 Respiratory Rate: 18 O2 Sat (%): 96 Height: 170.18 cm Weight: 80.739 kg ANE Physical Exam - Airway Neck exam: FROM Mallampati Score: Class 1 Mouth exam: normal dental/mouth exam - Pulmonary Pulmonary: no respiratory distress - Cardiovascular Cardiovascular: regular rate and rhythym - ASA Status ASA Status: III ANE Anesthesia Plan Anesthesia Plan: GA with mask Total IV Anesthesia: Yes
[2018-09-05] MEDS ORDERED: PROPOFOL/EMULSION 500 MG/50 ML BOTTLE IV ONE (09:17)
[2018-09-05] MEDS ORDERED: fentaNYL 100 MCG/2 ML INJ ONE (09:28)
[2018-09-05] MEDS ORDERED: LR 500 ML IV PRN (09:40)
[2018-09-05] MEDS ORDERED: ONDANSETRON 4 MG/2 ML VIAL IVP PRN (09:40)
[2018-09-05] MEDS ORDERED: DEXAMETHASONE 4 MG/ML VIAL IVP PRN (09:40)
[2018-09-05] MEDS ORDERED: ACETAMINOPHEN 500 MG TAB PO PRN (09:40)
[2018-09-05] MEDS ORDERED: fentaNYL 100 MCG/2 ML INJ IVP PRN (09:40)
[2018-09-05] MEDS ORDERED: NALOXONE HCL 0.4 MG/ML INJ IVP PRN (09:40)
[2018-09-05] MEDS ORDERED: MEPERIDINE 25 MG/0.5 ML AMP IVP PRN (09:40)
[2018-09-05] MEDS ORDERED: oxyCODONE IR 5 MG TAB PO PRN (09:40)
--- NOTE | 2018-09-05 09:53 | GIREPORT ---
[facility] Surgical Services - Endoscopy Department Patient Name: Mabel Lan Procedure Date: 09/05/2018 8:54 AM Patient Type: Outpatient Attending MD/ ER Physician: Bonifacio Borjas MD Procedure: Colonoscopy Indications: Screening for colorectal malignant neoplasm Providers: Bonifacio Borjas MD Referring MD: Chauncey Garcia, Nephrology Medicines: See the Anesthesia note for documentation of the administered medicatio ns Complications: No immediate complications. Description of Procedure: After obtaining informed consent, the scope was passed under direct vis ion. Throughout the procedure, the patient's blood pressure, pulse, and oxyg en saturations were monitored continuously. The Colonoscope with irrigatio n channel was introduced through the anus and advanced to the cecum, identified by appendiceal orifice and ileocecal valve. The colonoscopy was performed without difficulty. The patient tolerated the procedure well. The quality of the bowel preparation was good. The ileocecal valve, appendi ceal orifice, and rectum were photographed. Findings: The entire examined colon appeared normal. Estimated Blood Loss: Estimated blood loss: none. Post Op Diagnosis: - The entire examined colon is normal. - No specimens collected. Recommendation: - Written discharge instructions were provided to the patient. - The signs and symptoms of potential delayed complications were discus sed with the patient. - Patient has a contact number available for emergencies. - Return to normal activities tomorrow. - Resume previous diet. - Resume Eliquis (apixaban) at prior dose today. - Repeat colonoscopy in 10 years for screening purposes. Attending Participation: I personally performed the entire procedure. Bonifacio Borjas MD Bonifacio Borjas MD 09/05/2018 9:52:49 AM This report has been signed electronicallyBonifacio Borjas MD Number of Addenda: 0 Note Initiated On: 09/05/2018 8:54 AM Total Procedure Duration Time 0 hours 20 minutes 0 seconds [email or web address]}
--- NOTE | 2018-09-05 09:57 | POSTANESTH ---
Post Anesthetic Evaluation Cardiovascular Status: Normal, Stable Respiratory Status: Normal, Stable Level of Consciousness/Mental Status: Can Participate in Eval Pain Control: Adequate, Prn Tx Ordered Nausea/Vomiting Control: Adequate, Prn Tx Ordered Complications Possibly Related to Anesthesia: None Noted
[2018-09-05 12:38] VITALS: BP 153/89
== END 2018-09-05 12:52 | disposition home or self-care (01) ==
LOC: FSGY 07:17
PROVIDERS: ATTEND Internal Medicine Gastroenterology
PROC: 0DJD8ZZ Inspection of Lower Intestinal Tract, Via Natural or Artificial Opening Endoscopic (ICD-10-PCS; principal; 2018-09-05 09:00)
DX: Z12.11 Encounter for screening for malignant neoplasm of colon (principal); N18.6 End stage renal disease; I12.0 Hypertensive chronic kidney disease with stage 5 chronic kidney disease or end stage renal disease; I48.91 Unspecified atrial fibrillation; E78.5 Hyperlipidemia, unspecified; Z79.01 Long term (current) use of anticoagulants; Z87.442 Personal history of urinary calculi; Z99.2 Dependence on renal dialysis; Z76.82 Awaiting organ transplant status
CPT/HCPCS: J2704; J3010